=== PATIENT | female | born 1945 | race Caucasian/White ===

== ENCOUNTER 2020-08-02 08:55 | Outpatient (CLI) | payer MEDICARE, SELFPAY ==
--- NOTE | ~2020-08-02 | NM_ITS ---
EXAMINATION: NM nelsy stress w perfusion DATE: 08/02/2020 12:17 INDICATION: Chest pain. Ventricular premature depolarization. TECHNIQUE: Rest images were obtained following intravenous administration of 8.8 mCi Tc99m tetrofosmi n (Myoview). The exam was terminated by the insulation batting machine operator before stress imaging. Data was reconstructe d into short axis and horizontal and vertical long axis SPECT images. COMPARISON: Myocardial perfusion imaging 11/23/2012 FINDINGS: There is no perfusion defect. IMPRESSION: 1. Normal resting perfusion. Stress imaging was not performed. Reviewed, dictated and finalized at location B.
== END 2020-08-02 08:56 | disposition home or self-care (01) ==
PROVIDERS: PCP Family Medicine; Visit Provider Family Medicine
DX: I49.3 Ventricular premature depolarization (principal); R00.0 Tachycardia, unspecified; R07.9 Chest pain, unspecified
CPT/HCPCS: 78452; A9502

== ENCOUNTER 2020-08-02 10:50 | Inpatient (IN) | payer MEDICARE, SELFPAY ==
[2020-08-02] VITALS (38 sets, daily range): BP systolic 108–164; BP diastolic 50–98; PULSE 140–167; RESP 9–23; TEMP 36.1–36.3; O2SAT 97–100; BMI 22.1
--- NOTE | ~2020-08-02 | XR_ITS ---
XR chest 1V portable DATE: 08/02/2020 12:34 INDICATION: Shortness of breath. Atrial flutter. TECHNIQUE: Portable upright AP chest on 08/02/2020 at 1228 hours COMPARISON: 11/14/2011 PA and lateral chest FINDINGS: Bilateral hyperinflation. No pulmonary infiltrate or consolidation, pleural effusion or pul monary vascular congestion or pneumothorax is detected. Normal heart size. Aortic calcification. Diffuse osteopenia. IMPRESSION: No active cardiopulmonary disease Reviewed, dictated and finalized at location A.
--- NOTE | 2020-08-02 11:03 | ECG_ITS ---
Measurements Intervals [place] Rate: 155 P: MO: 0 QRS: 1 QRSD: 175 T: 270 QT: 293 QTc: 470 Interpretive Statements ATRIAL FLUTTER WITH RAPID VENTRICULAR RESPONSE ST-T WAVE ABNORMALITY IN ANT/INF LEADS- CONSIDER ISCHEMIA OR RATE RELATED BASELINE ARTIFACT- I, II, III, AVR, AVL ABNORMAL ECG Electronically Signed On 08-06-2020 11:14:54 CDT by Bob Suero D.O.
--- NOTE | 2020-08-02 11:16 | ED.ARRPALP ---
HPI - Arrhythmia/Palpitations General Chief Complaint: Arrhythmia/Palpitations Stated Complaint: heart beating fast Time Seen by Provider: 08/02/20 11:13 History of Present Illness HPI narrative: 75 yo female brought over from cardiology. She was scheduled to have a stress test this morning and she was found to be in atrial flutter. She has no history of this. She was unaware that her heart rate was fast. She reports that she has had GUNDERSON and early fatigue for months. She has had brief periods where she felt palpitations, but nothing sustained. No Chest pain, leg swelling, cough, fever. She is on Adderall. She takes alprazolam nightly. She is prescribed albuterol, but has not used it today. Related Data Home Medications Medication Instructions Recorded Confirmed ascorbate calcium (vitamin C) 500 500 mg PO BID 04/11/19 07/17/20 mg tablet denosumab 60 mg/mL subcutaneous 60 mg SUB-Q [id number] 04/11/19 07/17/20 syringe pyridoxine (vitamin B6) 100 mg 100 mg PO DAILY 04/11/19 07/17/20 tablet Allergies Allergy/AdvReac Type Severity Reaction Status Date / Time hydrochlorothiazide [Dyazide] Allergy Unknown Unknown Verified 08/02/20 11:06 modafinil Allergy Unknown did not Verified 08/02/20 11:06 work pregabalin [Lyrica] Allergy Unknown Anemia Verified 08/02/20 11:06 triamterene Allergy Unknown Unknown Verified 08/02/20 11:06 Review of Systems Review of Systems: All systems reviewed & are unremarkable except as noted in HPI and below Constitutional: Constitutional: Denies chills, Reports fatigue and Denies fever(s) Eyes: Eyes: Reports no additional eye complaints ENT: Denies dizziness Cardiovascular: Cardiovascular: Denies chest pain Respiratory: Respiratory: Reports dyspnea on exertion Gastrointestinal: Gastrointestinal: Denies abdominal pain and Denies nausea Genitourinary: Genitourinary: Reports no additional female genitourinary complaints Musculoskeletal: Musculoskeletal: Denies back pain Integumentary/Breasts: Skin/Breast: Reports system reviewed and no additional complaints, except as docu Neurologic: Denies dizziness, Denies headache(s), Denies focal weakness, Denies numbness and Reports weakness Psychiatric: Psychiatric: Reports no additional psychiatric complaints [facility] Past Medical History Medical History Fibromyalgia Hypertension Osteoporosis Surgical History Surgical History H/O breast biopsy H/O hand surgery trigger finger History of carpal tunnel surgery Hx of cholecystectomy S/P transposition of nerve Family History Family History (Reviewed 08/02/20 @ 14: by José Miguel Keith MD) Mother Asthma Family history of cardiovascular disease Family history of kidney disease Family history of malignant neoplasm of cervix, Onset Age: 68 Father Family history of peptic ulcer Family history of malignant neoplasm of stomach Family history of emphysema Sibling Family history of malignant neoplasm of brain, Onset Age: 55 Social History Social History Smoking status: Never smoker Alcohol intake: never Gender identity (if verbalized by the patient): Female Exam Const: General: healthy appearing, no acute distress and alert Orientation/consciousness: patient oriented x3 HENMT: Head: normal to inspection Neck: Neck: normal visual inspection and no lymphadenopathy Chest: Chest palpation & inspection: no tenderness Resp: Effort & Inspection: normal respiratory effort Auscultation: clear to auscultation bilaterally, no rales, no rhonchi and no wheezes Cardio: Jugular venous distension: no JVD Rate: tachycardic Rhythm: regular rhythm Heart sounds: no murmurs GI: Inspection: non-distended GI Palp: Yes Soft to palpation and No Tenderness to palpation present (GI) Skin: Ge
[2020-08-02] MEDS: dilTIAZem HCl INJ 25 MG/5 ML VIAL 10 MG IV PUSH (11:39)
[2020-08-02 12:15] LABS: Basophils Absolute Auto 0.1 K/mm3 (0.0-0.1); Basophils Percent Auto 0.9 % (0.2-1.2); Eosinophils Absolute Auto 0.1 K/mm3 (0-0.3); Eosinophils Percent Auto 0.8 % (0-4.4); Hematocrit 41.9 % (37.0-47.0); Hemoglobin 13.8 g/dL (12.0-15.0); Immature Granulocyte Absolute 0.02 K/mm3 (0.00-0.031); Immature Granulocyte Percent A 0.3 % (0-0.5); Lymphocytes Absolute Auto 1.74 K/mm3 (0.9-3.2); Lymphocytes Percent Auto 27.4 % (18.3-44.2); Mean Corpuscular HGB Conc 32.9 g/dl (32-36); Mean Corpuscular Hemoglobin 31.4 pg (26-34); Mean Corpuscular Volume 95.2 fl (80-100); Mean Platelet Volume 10.4 fl (7.4-10.4); Monocytes Absolute Auto 0.6 K/mm3 (0.1-0.6); Monocytes Percent Auto 8.7 % (2.6-8.5); Neutrophils Absolute Auto 3.9 K/mm3 (1.3-6.7); Neutrophils Percent Auto 61.9 % (45.5-73.1); Platelet Count Result 211 k/mm3 (150-375); Red Cell Distribution Width 12.6 % (11.5-14.5); White Blood Count 6.4 K/mm3 (4.5-10.0)
[2020-08-02 12:31] LABS: INR 0.9; Prothrombin Time 12.4 Seconds (11.1-14.7)
[2020-08-02 12:32] LABS: Partial Thromboplastin Time 26.9 SECONDS (22.3-36.8)
[2020-08-02 12:38] LABS: Alanine Aminotransferase 21 U/L (4-35); Albumin Level 4.2 g/dL (3.5-5.1); Alkaline Phosphatase 74 U/L (38-126); Anion Gap 4 mmol/L (8-16); Aspartate Amino Transferase 33 U/L (14-36); Bilirubin,Total 0.3 mg/dL (0.2-1.3); Blood Urea Nitrogen 15 mg/dL (7-17); Calcium 9.7 mg/dL (8.4-10.2); Carbon Dioxide 31 mmol/L (22-30); Chloride 106 mmol/L (98-107); Estimated CRCL calculation 40 ml/min; Estimated Glomerular Filt Rate > 60; Glucose 103 mg/dL (65-105); Potassium 4.2 mmol/L (3.4-5.0); Sodium 141 mmol/L (137-145)
[2020-08-02 13:08] LABS: NT Pro B Type Natriuretic Pept 2750 pg/mL (5-100); Troponin I 0.054 ng/mL (0.000-0.034)
[2020-08-02 13:14] LABS: Add Urine Microscopic? NO; Appearance Urine Clear (Clear); Bilirubin Urine Negative (Negative); Blood Urine Negative (Negative); Color Urine Straw (Yellow); Glucose Urine UA Negative (Negative); Ketones Urine Negative (Negative); Leukocyte Esterase Ur Negative LEU/UL (Negative); Nitrate Urine Negative (Negative); Protein Urine Negative (Negative); Specific Grav Ur 1.008 (1.001-1.035); Urobilinogen Urine Negative mg/dL (<2.0)
[2020-08-02] MEDS: ENOXAPARIN 60 MG/0.6 ML SYRINGE 55 MG SUB-Q (13:39)
--- NOTE | 2020-08-02 14:23 | PM.CNCAR ---
Assessment and Plan Assessment and plan (1) Atrial flutter: Code(s): I48.92 - Unspecified atrial flutter Status: Acute Assessment and Plan: Unknown duration. Was going to attempt a FAN guided cardioversion today however logistically could not be performed. Also given her elevated troponins, it is reasonable to continue to trend her enzymes. She will therefore be admitted. She has a chads Vasc score of 3. Anticoagulation is warranted. Will initiate enoxaparin 1 milligram/kilogram subcu q.12 hours initially. Will start her on a diltiazem drip at 5 mg per hour with the hopes of rate control or spontaneous conversion back to normal sinus rhythm. 2D echocardiogram Doppler be ordered. I have advised that she gradually reduce her caffeine intake as well as to talk to Dr. Fitch about eliminating Adderall from her prescription regimen. Will also check a TSH, free T4 level and magnesium level. (2) Hypertension: Code(s): I10 - Essential (primary) hypertension Status: Acute Assessment and Plan: At goal (3) PVC (premature ventricular contraction): Code(s): I49.3 - Ventricular premature depolarization Status: Acute Assessment and Plan: Likely benign. I think that her PVCs are what she is generally feeling with her palpitations/fluttering (4) Excessive caffeine intake: Code(s): Z78.9 - Other specified health status Status: Acute Assessment and Plan: She currently uses 3 [id number] caffeine pills daily (5) SOB (shortness of breath): Code(s): R06.02 - Shortness of breath Status: Acute Assessment and Plan: Outpatient Lexiscan perfusion study to be performed (6) Elevated troponin: Code(s): R77.8 - Other specified abnormalities of plasma proteins Status: Acute Assessment and Plan: Unlikely related to ACS. More likely secondary to her tachycardia. Continue to trend out serial cardiac enzymes History of Present Illness History of Present Illness Consult date/time: 08/02/20 14:23 Requesting physician: Jameson Sanchez MD Consult reason: Other (Atrial flutter) Reason For Visit: heart beating fast Narrative: Date of service 08/02/2020 History: Patient is a 75-year-old female who I saw earlier today in the stress lab. She does not have known coronary history or any cardiac history except for some palpitations. She is a patient Dr. Fitch'marta who is having a stress test performed because of some shortness of breath and as well as abnormal rhythm. The patient has a longstanding history of palpitations which she describes as a flip-flop or flutter. She has been having random episodes of shortness of breath also. Or shortness breath can occur with or without activity. About a month or so ago she had a prolonged episode of presyncope usually worsened while standing up. She did not actually pass out lower. She does not have any sustained palpitations. She has no chest pain, paroxysmal nocturnal dyspnea, orthopnea, edema. Before the Lexiscan stress test could be performed however, the patient was noted to be in atrial flutter with rapid ventricular response. She is completely asymptomatic and feels her normal self. However heart rate was 160 beats per minute. Stress test was aborted and she was sent to the ER for further evaluation. She was given diltiazem without any benefit. Her troponins are minimally elevated at 0.05 and she is being admitted further workup evaluation. She does use Adderall as well as excessive amounts of caffeine. She uses [id number] caffeine supplements 3 times daily because of headaches Review of Systems Review of Systems: All systems reviewed & are unremarkable except as noted in HPI and below Constitutional: Constitutional: Reports weakness Eyes: Eyes: Denies blurry vision ENT: Reports Normal hearing present Cardiovascular: Cardiovascular: Denies chest pain Respiratory: Respiratory: Re
--- NOTE | 2020-08-02 14:57 | ECG_ITS ---
Measurements Intervals [place] Rate: 160 P: ND: 0 QRS: -18 QRSD: 173 T: -89 QT: 284 QTc: 463 Interpretive Statements ATRIAL FLUTTER/TACHYCARDIA WITH RAPID VENTRICULAR RESPONSE RIGHT BUNDLE BRANCH BLOCK BASELINE ARTIFACT- I, II, III, AVR, AVF, V2-V6 ABNORMAL ECG Electronically Signed On 08-02-2020 17:33:30 CDT by Bob Suero D.O.
[2020-08-02 15:30] LABS: Magnesium 2.1 mg/dL (1.6-2.3)
[2020-08-02 15:47] LABS: T4 Thyroxine 6.03 ug/dL (5.53-11.0)
[2020-08-02 16:01] LABS: Thyroid Stimulating Hormone 0.868 uIU/mL (0.465-4.680)
--- NOTE | 2020-08-02 16:45 | PC.NURSE ---
ed physician aware heart rate remains a-fluter 150-160. will continue current rate diltiazem drip per ed physician
--- NOTE | 2020-08-02 17:05 | PC.NURSE ---
This patient, Mely Moody, was admitted to IMU Room 204-01. Patient/family oriented to hospital policies and general routines including ID bracelet, bed and alarms, visiting hours, pain management, procedures, bathroom and other care routines, personal items, smoking policy, room service/diet, and visiting hours. Information on how to activate the Rapid Response Team has been discussed. Patient/Family are encouraged to report perceived risks to care and to ask questions if they do not understand what they are told or what they should do.
--- NOTE | 2020-08-02 18:00 | PM.IMHP ---
H&P: HPI History of Present Illness Date/Time: 08/02/20 18:00 Chief Complaint: Rapid heartbeat. Narrative: This is a 75-year-old female who has been quite healthy other than asthma, hypertension, and remote history of peptic ulcers who presented to the emergency department earlier today for further evaluation of ?a rapid heartbeat.? For the past month or so she has been having periods of shortness of breath, mainly with exertion and she mentioned that to her doctor at a routine visit on July 17. He set her up for a stress test which was supposed to be done today however on presentation her heart rate was in the 150s and 160s and she was instead directed to the emergency department. She was found to be in atrial flutter with rapid ventricular response and she is being admitted in this setting. Interestingly she has no feelings of a racing heart at this time but does mention that maybe every couple of weeks she will have a fleeting moment when her heart flutters but it is never sustained. She does take Adderall daily for attention deficit disorder and also takes 2 tablets containing acetaminophen and caffeine, 3 times per day and she has done that for many years due to frequent headaches. She does not consume any other caffeine and denies alcohol use. She has not had any exertional chest pain recently and she also denies pleuritic pain. No syncope but she had a near syncopal episode about a month ago associated with a fluttering feeling in her chest. No nausea, vomiting, or sweats. Weight has remained stable. Review of Systems Review of Systems: Narrative: Twelve systems were reviewed with pertinent positives and negatives as per HPI. No fever, chills, or sweats. Weight has remained stable. No recent cold or flu symptoms. She states that her asthma is well controlled. No nighttime symptoms. No orthopnea, PND, or lower extremity edema. She denies nausea, vomiting, and diarrhea. No dysuria. Except as documented, all other systems were reviewed and are negative. [facility] Past Medical History Medical History (Updated 08/02/20 @ 21:25 by Lis Millan PA-C) Asthma Fibromyalgia Gastroesophageal reflux disease History of peptic ulcer Hypertension Osteoporosis Vitamin D deficiency Surgical History Surgical History (Updated 08/02/20 @ 21:21 by Lis Millan PA-C) History of breast biopsy History of carpal tunnel surgery History of cholecystectomy History of hand surgery Trigger finger release. History of lumbar laminectomy Status post transposition of nerve Right ulnar nerve transposition. Family History Family History Mother Asthma Family history of cardiovascular disease Family history of kidney disease Family history of malignant neoplasm of cervix, Onset Age: 68 Father Family history of peptic ulcer Family history of malignant neoplasm of stomach Family history of emphysema Sibling Family history of malignant neoplasm of brain, Onset Age: 55 Social History Social History (Updated 08/02/20 @ 21:22 by Lis Millan PA-C) Social History: Surrogate decision maker: Donavon Jean, nephew. Code status: Full code. Smoking status: Never smoker Alcohol intake: never Substance use: never Substance use type: does not use Additional living arrangements comments: The patient lives with her in [place]. 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 No children. 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 Gender identity (if verbalized by the patient): Female Spiritual care concerns: No Meds Home Medications and Allergies Home Medications Medication Instructions Recorded Confirmed Type ascorbate calcium (vitamin C) 500 500 mg PO BID 04/11/19 08/02/20 History mg tablet pyridoxine (vitamin B6) 100 mg 100 mg PO DAILY 03/23
[2020-08-02 18:17] LABS: Troponin I 0.048 ng/mL (0.000-0.034)
[2020-08-02 21:23] LABS: Troponin I 0.046 ng/mL (0.000-0.034)
[2020-08-02] MEDS: ALPRAZolam (*CRX) 0.5 MG TABLET PO (22:55)
[2020-08-02] MEDS: AMITRIPTYLINE HCL 25 MG TABLET 50 MG PO (22:55)
[2020-08-03] VITALS (21 sets, daily range): BP systolic 78–108; BP diastolic 44–67; PULSE 84–166; RESP 10–20; TEMP 36.4–37; O2SAT 93–100
--- NOTE | 2020-08-03 | ECHO_ITS ---
Patient Info Name: Mely Moody Age: 75 years : 1945 Gender: Female Ht: 63 in Wt: 121 lbs BSA: 1.56 m2 HR: 61 bpm BP: 99 / 67 mmHg Heart Rhythm: Sinus Rhythm Technical Quality: Good Exam Date: 08/03/2020 1:00 PM Exam Location: [facility] Card Pulmonary Patient Status: Inpatient Admit Date: 08/02/2020 Staff Ordering Physician: José Miguel Keith MD Teleradiologist: Melia Canela RDCS Attending Provider: Josafat Fernandez MD Referring Physician: Sagar RG; Exam Type: CA echo doppler color flow Study Info Complete two-dimensional, color flow and Doppler transthoracic echocardiogram is performed. Summary 1. Complete two-dimensional, color flow and Doppler transthoracic echocardiogram is performed. 2. Left ventricular chamber size, wall thickness, systolic function are normal with no regional wall motion abnormalities with an estimated ejection fraction of >70%. Grade 2 diastolic dysfunction is present. 3. Left atrial chamber dimension is mildly enlarged. 4. No pulmonary hypertension, estimated pulmonary arterial systolic pressure is 34 mmHg. 5. Atrial septal aneurysm present. (No shunt noted by FAN bubble study.). 6. No significant valve disease. 7. Normal sinus rhythm. Left Ventricle Left ventricular chamber dimension is normal. Left ventricular systolic function is normal, estimated at Empty. There is no increased left ventricular wall thickness. Left ventricular septal wall motion is normal. The left ventricular diastolic function is grade II diastolic dysfunction. Left ventricular chamber size, wall thickness, systolic function are normal with no regional wall motion abnormalities with an estimated ejection fraction of >70%. Grade 2 diastolic dysfunction is present. Right Ventricle Right ventricular chamber dimension is normal. Right ventricular systolic function is normal. Left Atria Left atrial chamber dimension is mildly enlarged. Right Atria Right atrial chamber dimension is normal. Aortic Valve The aortic valve is trileaflet. There is no aortic valve sclerosis. There is no aortic valve stenosis. There is no aortic valve regurgitation. Pulmonic Valve The pulmonic valve is normal. There is no pulmonic valve stenosis. There is no pulmonic regurgitation. Mitral Valve The mitral valve has calcified annulus. There is no mitral valve stenosis. There is no mitral valve regurgitation. Tricuspid Valve The tricuspid valve leaflets are normal. There is no significant tricuspid valve stenosis. There is trace tricuspid valve regurgitation. No pulmonary hypertension, estimated pulmonary arterial systolic pressure is 34 mmHg. Pericardium/Pleural The pericardium appears normal. There is no pericardial effusion. Inferior Vena Cava Normal inferior vena cava with >50% collapse upon inspiration consistent with Empty right atrial pressure, 10 mmHg. Aorta The aortic root size at the sinus of Valsalva is normal. The prox ascending aorta size is normal. Left Ventricular Outflow Tract Name Value Normal LVOT 2D LVOT Diameter 1.8 cm LVOT Doppler LVOT Peak Velocity
[2020-08-03] MEDS: ENOXAPARIN 60 MG/0.6 ML SYRINGE 55 MG SUB-Q (03:07)
--- NOTE | 2020-08-03 03:44 | PM.EVENT ---
Event Note Event Note Event Note: I was called to assess patient after she used the toilet and when getting up her knees about and patient loss consciousness briefly she was taken back to her bed at the time of my visit patient was awake alert oriented x3 on physical exam no deformities vitals stable heart rate is elevated. Decided to keep patient on bed rest only.
[2020-08-03] MEDS: METOPROLOL TARTRATE INJ 5 MG/5 ML VIAL IV PUSH ×2 (04:15→08:48)
[2020-08-03] MEDS: SODIUM CHLORIDE 0.9% IV 250 ML 999 ML IV CONT ×2 (05:18→05:40)
[2020-08-03] MEDS: SODIUM CHLORIDE 0.9% IV 1,000 ML 100 ML IV CONT (05:56)
[2020-08-03 06:09] LABS: Anion Gap 3 mmol/L (8-16); Blood Urea Nitrogen 14 mg/dL (7-17); Calcium 8.8 mg/dL (8.4-10.2); Carbon Dioxide 27 mmol/L (22-30); Chloride 107 mmol/L (98-107); Estimated CRCL calculation 45 ml/min; Estimated Glomerular Filt Rate > 60; Glucose 95 mg/dL (65-105); Potassium 3.7 mmol/L (3.4-5.0); Sodium 137 mmol/L (137-145)
[2020-08-03] MEDS: FLUTICASONE/SALMETEROL 115-21 MCG INHALER 1 PUFF 2 PUFF INHALATION (08:21)
--- NOTE | 2020-08-03 09:06 | PM.PNCARD ---
Progress Note: A&P Assessment and Plan (1) Atrial flutter with rapid ventricular response: Code(s): I48.92 - Unspecified atrial flutter Status: Acute Assessment and Plan: Patient not responding to medical therapy for atrial flutter RVR. Discussed proceeding with a FAN guided cardioversion, (FAN since were not sure how long the atrial flutter has been present), and the patient would like to proceed. Reviewed risks and benefits of conscious sedation and procedure. We may be somewhat limited with the sedation because of her low blood pressure. Hopefully if this is successful and uncomplicated the patient will go home later today. Will see if her insurance will cover a NOAC. She is aware that atrial flutter can recur. (2) Elevated troponin: Code(s): R77.8 - Other specified abnormalities of plasma proteins Status: Acute Assessment and Plan: Mildly elevated troponin and BMP secondary to a flutter, no acute coronary syndrome (3) Syncope: Code(s): R55 - Syncope and collapse Status: Acute Assessment and Plan: Brief syncope due to a flutter RVR, reduced cardic output and low blood presssure. (4) Excessive caffeine intake: Code(s): Z78.9 - Other specified health status Status: Acute Assessment and Plan: Advised to reduce caffeine, discuss changing Adderall. Subjective Date/time seen: 08/03/20 09:06 Interval history: Follow-up for atrial flutter, Date 08/03/2020: Patient remained in atrial flutter through the night heart rate 150-160, IV Cardizem did not seem to help much. Getting IV metoprolol which also has helped much. When she went to the restroom last night she had a brief syncopal event and was brought back to bed. Blood pressure has been often on low, 70s to 80s at times. No chest pain or shortness of breath. No esophageal problems Review of Systems Constitutional: Constitutional: Reports weakness ENT: Denies dysphagia Comments: No loose teeth, or esophageal problems Cardiovascular: Cardiovascular: Denies chest pain, Denies leg edema and Reports lightheadedness Respiratory: Respiratory: Denies dyspnea and Denies dyspnea on exertion Gastrointestinal: Gastrointestinal: Denies abdominal pain Genitourinary: Genitourinary: Denies hematuria Musculoskeletal: Musculoskeletal: Reports no additional musculoskeletal complaints Integumentary/Breasts: Skin/Breast: Denies rash Neurologic: Reports system reviewed and no additional complaints, except as documented Psychiatric: Psychiatric: Reports no additional psychiatric complaints Exam Const: General: comfortable and no acute distress HENMT: Mouth: Yes moist mucous membranes Eyes: EOM: EOMs intact bilaterally Neck: Neck: supple Resp: Effort & Inspection: normal respiratory effort Auscultation: clear to auscultation bilaterally Cardio: Rate: regular rate and tachycardic Rhythm: regular rhythm GI: GI Palp: Yes Soft to palpation and No Tenderness to palpation present (GI) Skin: General skin exam: no rashes or lesions noted Neuro: Cognition (Neuro): normal cognition Speech: normal speech Extrem: General: no pedal edema Psych: Mental Status: mental status grossly normal Objective Data Vital Signs Vital Signs: Vital Signs - 24 hr 08/02/20 10:58 08/02/20 10:59 08/02/20 11:00 Temperature Pulse Rate 158 H 158 H 155 H Respiratory Rate 13 19 Blood Pressure 164/92 H Pulse Oximetry 08/02/20 11:07 08/02/20 11:16 08/02/20 11:30 Temperature 97.2 F L Pulse Rate 154 H 154 H 154 H Respiratory Rate 22 H 12 14 Blood Pressure 164/92 H 146/98 H Pulse Oximetry 100 100 100 08/02/20 11:31 08/02/20 11:45 08/02/20 11:46 Temperature Pulse Rate 157 H 149 H 152 H Respiratory Rate 19 20 17 Blood Pressure 125/86 Pulse Oximetry 100 08/02
--- NOTE | 2020-08-03 09:16 | WPDMODSED ---
Moderate Sedation Note-Pt Data Patient Data Diagnosis: A flutter RVR, not responding to IV medical therapy Present Complaint: Atrial flutter RVR Procedure to be performed/Plan: FAN guided cardioversion Allergies Allergy/AdvReac Type Severity Reaction Status Date / Time hydrochlorothiazide [Dyazide] Allergy Unknown Unknown Verified 08/02/20 17:42 modafinil Allergy Unknown did not Verified 08/02/20 17:42 work pregabalin [Lyrica] Allergy Unknown Anemia Verified 08/02/20 17:42 triamterene Allergy Unknown Unknown Verified 08/02/20 17:42 Home Medications Medication Instructions Recorded Confirmed Type ascorbate calcium (vitamin C) 500 500 mg PO BID 04/11/19 08/02/20 History mg tablet pyridoxine (vitamin B6) 100 mg 100 mg PO DAILY 04/11/19 08/02/20 History tablet ergocalciferol (vitamin D2) 1,250 1,250 mcg PO MONTHLY #13 cap 02/28/20 08/02/20 Rx mcg (50,000 unit) capsule dextroamphetamine-amphetamine 20 20 mg PO DAILY #30 tablet 07/08/20 08/02/20 Rx mg tablet alprazolam 0.5 mg tablet 0.5 mg PO BID #180 tablet 07/17/20 08/02/20 Rx fluticasone 250 mcg-salmeterol 50 1 inh INHALATION BID #60 each 07/17/20 08/02/20 Rx mcg/dose blistr powdr for inhalation montelukast 10 mg tablet 10 mg PO DAILY #90 tablet 07/17/20 08/02/20 Rx amitriptyline 25 mg tablet 50 mg PO DAILY #180 tablet 07/18/20 08/02/20 Rx C,E,zinc,copper [id number] 1 cap PO DAILY 08/02/20 08/02/20 History [Ocuvite Adult 50 Plus] Centrum Silver Women 1 cap PO DAILY 08/02/20 08/02/20 History acetaminophen-caffeine [Excedrin 1 tablet PO Q6H PRN 08/02/20 08/02/20 History Tension Headache] albuterol sulfate [ProAir HFA] 2 puff INHALATION Q6H PRN 08/02/20 08/02/20 History docusate sodium [Colace] 50 mg PO BID 08/02/20 08/02/20 History guaifenesin [Mucinex] 600 mg PO Q12H PRN 08/02/20 08/02/20 History lysine [L-Lysine] 500 mg PO DAILY 08/02/20 08/02/20 History polyethylene glycol 3350 [Miralax] 17 g PO DAILY 08/02/20 08/02/20 History Current Medications: Active Medications Albuterol (Albuterol Sulfate (*Sp) Aerosol 1 Puff) 2 puff INHALATION Q6H PRN PRN Reason: Shortness Of Breath Alprazolam (Alprazolam (*Crx) 0.5 Mg Tablet) 0.5 mg PO Q12HR [facility] Last Admin: 08/03/20 09:01 Dose: Not Given Documented by: Amitriptyline HCl (Amitriptyline Hcl 25 Mg Tablet) 50 mg PO HS [facility] Last Admin: 08/02/20 22:55 Dose: 50 mg Documented by: Ascorbic Acid (Ascorbic Acid 500 Mg Tablet) 500 mg PO BID [facility] Last Admin: 08/03/20 09:02 Dose: Not Given Documented by: Docusate Sodium (Docusate Sodium 100 Mg Capsule) 100 mg PO DAILY [facility] Last Admin: 08/03/20 09:02 Dose: Not Given Documented by: Enoxaparin Sodium (Enoxaparin 60 Mg/0.6 Ml Syringe) 55 mg SUB-Q Q12H [facility] Last Admin: 08/03/20 03:07 Dose: 55 mg Documented by: Fentanyl Citrate (Fentanyl Citrate Inj (*Crx) 100 Mcg/2 Ml Vial) 100 mcg IV PUSH ONCE PRN PRN Reason: Cardioversion/FAN Sodium Chloride (Normal Saline Iv) 1,000 mls @ 100 mls/hr IV CONT .Q10H [facility] Last Admin: 08/03/20 05:56 Dose: 100 mls/hr Documented by: Sodium Chloride (Normal Saline Iv) 1,000 mls @ 30 mls/hr IV CONT .Q24H [facility] Midazolam HCl (Midazolam Hcl (*Crx) 2 Mg/2 Ml Vial) 2 mg IV PUSH Q5M PRN PRN Reason: Cardioversion/FAN Montelukast Sodium (Montelukast Sodium 10 Mg Tablet) 10 mg PO DAILY [facility] Last Admin: 08/03/20 09:02 Dose: Not Given Documented by: Multivitamins/Minerals (Opti-Gen Tab) 1 tablet PO DAILY [facility] Stop: 09/02/20 09:01 Last Admin: 08/03/20 09:03 Dose: Not Given Documented by: Multivitamins/Minerals (Multivitamins /C Lutein (Centrum Silver) Tablet *Bkc) 1 tab PO DAILY [facility] Stop: 09/02/20 09:01 Last Admin: 08/03/20 09:03 Dose: Not Given Documented by: Polyethylene Glycol (Polyethylene Glycol 3350 17 Gm Powd.Pack) 17 gm PO DAILY [facility] Last Admin: 08/03/20 09:03 Dose: Not Given Documented by: Pyridoxine HCl (Pyridoxine Hcl 50 Mg Tablet) 100 mg PO DAILY [facility] Stop: 09/02/20 09:01 Last Admin:
--- NOTE | 2020-08-03 09:21 | PM.IMPN ---
Progress Note: A&P Assessment and Plan (1) Atrial flutter with rapid ventricular response: Code(s): I48.92 - Unspecified atrial flutter Status: Acute Assessment and Plan: D/w cardiology Cardioversion planned today as meds not controlling rate (2) Syncope: Qualifiers: Syncope type: unspecified Qualified Code(s): R55 - Syncope and collapse Code(s): R55 - Syncope and collapse Status: Acute Assessment and Plan: Likely due to #1 (3) Elevated troponin: Code(s): R77.8 - Other specified abnormalities of plasma proteins Status: Acute Assessment and Plan: Likely due to HR (4) Excessive caffeine intake: Code(s): Z78.9 - Other specified health status Status: Acute Assessment and Plan: She will decrease Consider d/c stimulant meds as outpt (5) Hypertension: Qualifiers: Hypertension type: unspecified Qualified Code(s): I10 - Essential (primary) hypertension Code(s): I10 - Essential (primary) hypertension Status: Acute Assessment and Plan: Stable Monitor Subjective Date/time seen: 08/03/20 09:21 Interval history: 08/03: Feels fine. No cp or sob or palpitations. Review of Systems Review of Systems: All systems reviewed & are unremarkable except as noted in HPI and below Exam Narrative: Exam Narrative: HEENT: EOMI, PERRL, sclerae nonicteric, pharyngeal mucosa pink and intact NECK: No JVD, adenopathy, or thyromegaly CHEST: Clear to auscultation. Normal effort. HEART: NL S1/S2, regular, TACHYCARDIC, no murmur ABDOMEN: BS+, soft, nontender, no mass, no bruits EXTREMITIES: No cyanosis, edema, or clubbing NEUROLOGIC: CN intact and symmetric to inspection. MUSCULOSKELETAL: Tone and strength symmetric. PSYCH: Alert. Oriented to person, place, and time. Objective Data Vital Signs Vital Signs: Vital Signs - 24 hr 08/02/20 10:58 08/02/20 10:59 08/02/20 11:00 Temperature Pulse Rate 158 H 158 H 155 H Respiratory Rate 13 19 Blood Pressure 164/92 H Pulse Oximetry 08/02/20 11:07 08/02/20 11:16 08/02/20 11:30 Temperature 97.2 F L Pulse Rate 154 H 154 H 154 H Respiratory Rate 22 H 12 14 Blood Pressure 164/92 H 146/98 H Pulse Oximetry 100 100 100 08/02/20 11:31 08/02/20 11:45 08/02/20 11:46 Temperature Pulse Rate 157 H 149 H 152 H Respiratory Rate 19 20 17 Blood Pressure 125/86 Pulse Oximetry 100 08/02/20 12:01 08/02/20 12:19 08/02/20 12:36 Temperature Pulse Rate 155 H 157 H 159 H Respiratory Rate 13 12 Blood Pressure Pulse Oximetry 97 98 100 08/02/20 12:45 08/02/20 12:46 08/02/20 13:00 Temperature Pulse Rate 159 H 160 H 160 H Respiratory Rate 13 12 9 L Blood Pressure 134/81 113/75 Pulse Oximetry 100 100 08/02/20 13:01 08/02/20 13:30 08/02/20 13:32 Temperature Pulse Rate 159 H 160 H 158 H Respiratory Rate 15 14 Blood Pressure 119/78 Pulse Oximetry 100 100 100 08/02/20 13:45 08/02/20 13:47 08/02/20 14:00 Temperature Pulse Rate 155 H 159 H 159 H Respiratory Rate 16 16 22 H Blood Pressure 119/79 Pulse Oximetry 100 100 100 08/02/20 14:01 08/02/20 14:07 08/02/20 14:15 Temperature Pulse Rate 160 H 158 H 159 H Respiratory Rate 23 H 9 L 13 Blood Pressure 116/91 H 121/85 Pulse Oximetry 99 99 99 08/02/20 14:16 08/02/20 15:02 08/02/20 15:40 Temperature Pulse Rate 160 H 160 H 160 H Respiratory Rate 11 L Blood Pressure 124/93 H 134/82 Pulse Oximetry 99 08/02/20 16:10 08/02/20 16:51 08/02/20 17:11 Temperature 97.1 F L Pulse Rate 159 H 160 H 167 H Respiratory Rate 12 14 18 Blood Pressure 113/61 122/50 L 108/73 Pulse Oximetry 100 98 100 08/02/20 17:16 08/02/20 17:17 08/02/20 17:22 Temperature 97.1 F L Pulse Rate 161 H 158 H 158 H Respiratory Rate 18 Blood Pressure 108/73 Pulse Oximetry 100 08/02/20 18:00 08/02/20 19:40 08/02/20 20:00 Temperature 97.4 F L Pulse Rate
[2020-08-03] MEDS: LIDOCAINE HCL 2% VISC SOLN 15 ML UDC 20 ML PO (10:55)
[2020-08-03] MEDS: BENZOCAINE (*SP) 60 ML SPRAY CAN (HURRICAINE) 1 SPRAY MUCOUS MEM (10:56)
[2020-08-03] MEDS: fentaNYL CITRATE INJ (*CRX) 100 MCG/2 ML VIAL IV PUSH (11:13)
[2020-08-03] MEDS: MIDAZOLAM HCL (*CRX) 2 MG/2 ML VIAL IV PUSH (11:14)
--- NOTE | 2020-08-03 11:15 | PC.NURSE ---
FAN and Cardioversion done at bedside in ICU [address] M[address]. Procedure started at 1053. 50 mcg fentanyl and 1 mg versed given at this time for FAN. 1104 25 mcg fentanyl and 1 mg versed given for cardioversion. Patient shocked once with return to NSR.
--- NOTE | 2020-08-03 11:44 | P.PCNTEECA_ITS ---
FAN with Cardioversion Date of procedure: 08/03/20 Procedure Type: FAN guided cardioversion Diagnosis: Atrial flutter not responding to IV therapy Indications: Atrial flutter not responding to IV therapy Description of Procedure: Conscious sedation: Assessment: The patient has no history of anesthesia problems. The patient's oropharynx is clear. The patient was deemed to be a good candidate for conscious sedation. The patient had continuous hemodynamic and oximetric monitoring during the procedure. Start time: 1053 Completion time: 1111 Total conscious sedation time: 18 minutes Medications Used: Versed 2 mg, fentanyl 75 mcg IV push Trained observer: Shamar Wren RN Outcome: The patient tolerated the procedure well with no complications. Procedure: After informed consent the patient had Hurricaine spray the hypopharynx. The patient had conscious sedation as described above. The transesophageal echo probe was introduced in the esophagus without difficulty. Imaging was obtained in multiplane views. Agitated saline was injected to evaluate for intracardiac shunting. The patient tolerated the procedure well with no complications. Findings: The left atrium was enlarged. There is no thrombus present in the left atrium or left atrial appendage. The atrial septum appeared aneurysmal. Mitral valve appeared thickened with no stenosis or prolapse. The left ventricle had had normal size with possible LVH, and normal tohyperdynamic contractility of all segments. Function was difficult to assess because of the patient's tachycardia. The ejection fraction is estimated to be: 60-70% The aortic root and valve were normal. The ascending aorta, aortic arch and descending thoracic aorta were normal. The right atrium is also mildly enlar ged, but the tricuspid valve, right ventricle, pulmonic valve and pulmonic artery were all normal. There is no pericardial effusion. When agitated saline was injected intravenously there was no evidence of intracardiac shunting. Colorflow Doppler Findings: No significant aortic, mitral, tricuspid or pulmonic valve disease Cardioversion: After informed consent and the above conscious sedation, the patient underwent elective electrical synchronized cardioversion with 70 joules of biphasic energy and converted to normal sinus rhythm. There were no complications. Findings: FAN report: Normal to hyperdynamic left ventricular function Possible LVH Biatrial enlargement No significant valve disease No thrombus in the left atrial appendage . Conclusion: Successful cardioversion from atrial flutter to normal sinus rhythm. Plan: Likely discharge this afternoon taking Xarelto (approximately 38 dollars a month) and metoprolol succinate 25 mg daily. Reduce caffeine intake. Consider transitioning off Adderall. Office follow-up.
--- NOTE | 2020-08-03 16:44 | PM.DS ---
DS: Admitting Diagnosis Admitting Diagnosis Admitting Diagnosis: atrial flutter with rapid ventricular rate, syncope DS: Discharge Diagnosis Discharge Diagnosis (1) Atrial flutter with rapid ventricular response: Code(s): I48.92 - Unspecified atrial flutter Status: Acute Assessment and Plan: FAN cardioversion performed 08/03 and sinus rhythm maintained (2) Syncope: Qualifiers: Syncope type: unspecified Qualified Code(s): R55 - Syncope and collapse Code(s): R55 - Syncope and collapse Status: Acute Assessment and Plan: Likely due to #1 (3) Elevated troponin: Code(s): R77.8 - Other specified abnormalities of plasma proteins Status: Acute Assessment and Plan: Likely due to HR (4) Excessive caffeine intake: Code(s): Z78.9 - Other specified health status Status: Acute Assessment and Plan: She will decrease Consider d/c stimulant meds as outpt (5) Hypertension: Qualifiers: Hypertension type: unspecified Qualified Code(s): I10 - Essential (primary) hypertension Code(s): I10 - Essential (primary) hypertension Status: Acute Assessment and Plan: Stable DS: Summary Hospital Course Reason for hospitalization: syncope, atrial flutter with rapid ventricular rate Hospital Course: Admitted with presyncopal episode. Found to have atrial flutter with rapid ventricular rate. Did not respond to diltiazem IV nor to metoprolol IV and p.o.. Was anticoagulated with Xarelto. Tolerated well without bleeding. On day of discharge underwent a transesophageal echocardiographic cardioversion uneventfully. Sinus rhythm was maintained throughout the day. LABS, including TSH, CBC, CMP, U/A were unremarkable. TnI was mildly elevated with a flat trend. CXR was unremarkable. EKG with atrial flutter and RVR. Status at Discharge Functional status at discharge: independent ambulation Overall status at discharge: patient is back to baseline Time Spent with Patient Time attestation: Total time spent providing and/or coordinating discharge services: Time spent: Greater than 30 minutes Exam Narrative: Exam Narrative: HEENT: EOMI, PERRL, sclerae nonicteric, pharyngeal mucosa pink and intact NECK: No JVD, adenopathy, or thyromegaly CHEST: Clear to auscultation. Normal effort. HEART: NL S1/S2, regular, no murmur ABDOMEN: BS+, soft, nontender, no mass, no bruits EXTREMITIES: No cyanosis, edema, or clubbing NEUROLOGIC: CN intact and symmetric to inspection. MUSCULOSKELETAL: Tone and strength symmetric. PSYCH: Alert. Oriented to person, place, and time. DS: Data Data Completed and Pending Labs on day of discharge: Labs from last 24 hours 08/03/20 08/02/20 08/02/20 04:20 20:34 17:26 Sodium 137 Potassium 3.7 Chloride 107 Carbon Dioxide 27 Anion Gap 3 L BUN 14 Creatinine 0.80 Estim Creat Clear Calc 45 Estimated GFR > 60 Glucose 95 Calcium 8.8 Magnesium 2.0 Troponin I 0.046 H* 0.048 H* Discharge Plan Discharge Consulting providers: José Miguel Keith Discharging Clinician: Pedro Lopes Patient Disposition: Home, Self-Care Activity: as tolerated Diet: heart healthy and diabetic Discharge Instructions: Dr. Keith's office should be calling you for a follow-up visit. Please call us if you have questions or problems. [facility]: [phone]. Address: [address] [place] [address] [address], [address] [address]. Our office is on the ground floor next to the gift shop of the doctor's office building. Enter through the main entrance for COVID screening. Reduce caffeine use as a stimulant can predispose to atrial flutter. Talk to Dr. Fitch about changing the Adderall as that also can predispose to atrial arrhythmias. Your new blood thinner, Xarelto, as best taken with a large meal such as at supper time. The other new medicine, metoprolol,
== END 2020-08-03 18:00 | disposition home or self-care (01) | DRG 310 ==
LOC: ANHED 14:42 → ANHIMU 08-03 16:54 → ANHICU 08-06 16:48 → ANHIMU 08-06 16:48
PROVIDERS: Internal Medicine Cardiovascular Disease; Physician Assistant; Admitting Provider Internal Medicine; Emergency Provider Emergency Medicine; PCP Family Medicine; Visit Provider Internal Medicine
DX: I48.92 Unspecified atrial flutter (principal); R55 Syncope and collapse; R77.8 Other specified abnormalities of plasma proteins; I49.3 Ventricular premature depolarization; I10 Essential (primary) hypertension; J45.909 Unspecified asthma, uncomplicated; K21.9 Gastro-esophageal reflux disease without esophagitis; M81.0 Age-related osteoporosis without current pathological fracture; E55.9 Vitamin D deficiency, unspecified; M79.7 Fibromyalgia; Z78.9 Other specified health status; Z79.899 Other long term (current) drug therapy
CPT/HCPCS: 36415; 71045; 78452; 80048; 80053; 81003; 83735; 83880; 84436; 84443; 84484; 85025; 85610; 85730; 93005; 93306; 93312; 93320; 93325; 94640; 96372; 96374; 99285; A9270; A9502; J1650; J2250; J3010; J7030; J7040; J7050

== ENCOUNTER 2021-12-01 03:07 | Day surgery (SDC) | payer MEDICARE, SELFPAY ==
[2021-11-20 14:47] VITALS: BMI 24.0
--- NOTE | 2021-11-20 15:42 | PC.NURSE ---
INSTRUCTIONS GIVEN TO PATIENT WHEN TO HOLD XARELTO WITH LAST DOSE ON 11/28/2021-WILL HOLD IRON FOR 4-5 DAYS BEFORE PROCEDURE
--- NOTE | 2021-12-01 07:55 | WPDANESEPPF ---
Anes - Initial Pre Proc Eval Procedure: Operation Date: 12/01/21 10:30 Proposed Procedures p Screening Colonoscopy - Fredo Barnett MD Date/Time: 12/01/21 07:55 Surgeon: Fredo Barnett MD Pre Op Diagnosis: neoplasm screening Patient Data Age: 76 Gender: F Height: 1.6 m Weight: 61.5 kg Allergies Allergy/AdvReac Type Severity Reaction Status Date / Time hydrochlorothiazide [Dyazide] Allergy Unknown Unknown Verified 12/01/21 09:34 modafinil Allergy Unknown did not Verified 12/01/21 09:34 work pregabalin [Lyrica] Allergy Unknown Anemia Verified 12/01/21 09:34 triamterene Allergy Unknown Unknown Verified 12/01/21 09:34 Home Medications Medication Instructions Recorded Confirmed Type pyridoxine (vitamin B6) 100 mg 100 mg PO DAILY 04/11/19 11/27/21 History tablet Centrum Silver Women 1 cap PO DAILY 08/02/20 11/27/21 History albuterol sulfate 90 mcg/actuation 2 puff inhalation Q6H PRN 08/02/20 11/27/21 History aerosol inhaler (ProAir HFA) Shortness Of Breath guaifenesin 600 mg tablet, 600 mg PO Q12H PRN Cough 08/02/20 11/27/21 History extended release 12 hr (Mucinex) lysine 500 mg tablet (L-Lysine) 500 mg PO DAILY 08/02/20 11/27/21 History polyethylene glycol 3350 17 gram 17 g PO DAILY 08/02/20 11/27/21 History oral powder packet (Miralax) vit C,E,zinc,copper-iffzw8b 250 1 cap PO DAILY 08/02/20 11/27/21 History mg-lutein 5 mg-zeaxanthin 1 mg capsule (Ocuvite Adult 50 Plus) rivaroxaban 20 mg tablet (Xarelto) 20 mg PO DAILY@1700 #30 tabs 08/03/20 11/27/21 Rx ergocalciferol (vitamin D2) 1,250 1,250 mcg PO MONTHLY #13 caps 08/27/20 11/27/21 Rx mcg (50,000 unit) capsule fluticasone 250 mcg-salmeterol 50 See Rx Instructions .Route 09/09/21 11/27/21 Rx mcg/dose blistr powdr for .COMPLEX #60 ea inhalation (Advair Diskus) ferrous fumarate 324 mg (106 mg 324 mg PO DAILY #30 tabs 09/23/21 11/27/21 Rx iron) tablet amitriptyline 25 mg tablet See Rx Instructions .Route 10/22/21 11/27/21 Rx .COMPLEX #180 tabs sodium,potassium,mag sulfates 17.5 See Rx Instructions PO .COMPLEX 10/27/21 11/27/21 Rx gram-3.13 gram-1.6 gram oral soln #354 mL (Suprep Bowel Prep Kit) alprazolam 0.5 mg tablet 0.5 mg PO BID #90 tabs 11/13/21 11/27/21 Rx calcium carbonate 500 mg calcium 500 mg PO BID 11/20/21 11/27/21 History (1,250 mg) tablet docusate sodium 100 mg capsule 200 mg PO HS 11/20/21 11/27/21 History (Colace) fluticasone propionate 50 1 spray intranasal DAILY PRN Runny 11/20/21 11/27/21 History mcg/actuation nasal Nose spray,suspension metoprolol succinate 50 mg 50 mg PO DAILY 11/20/21 12/01/21 History tablet,extended release 24 hr montelukast 10 mg tablet 10 mg PO DAILY 11/20/21 11/27/21 History olopatadine 0.2 % eye drops 1 drp EACH EYE DAILY PRN ITCHY EYES 11/20/21 11/27/21 History vitamin E 400 unit tablet 400 unit PO DAILY 11/20/21 11/27/21 History Patient hx anesthesia problems: none Family hx anesthesia problems: none Results Review: All pre-operative results and documents have been reviewed as part of the pre-operative evaluation. [facility] Past Medical History Medical History (Updated 12/01/21 @ 09:57 by Sinan Deng DO) Asthma Atrial flutter Fibromyalgia Gastroesophageal reflux disease History of peptic ulcer Hypertension Osteoporosis Vitamin D deficiency Surgical History Surgical History History of breast biopsy History of carpal tunnel surgery History of cholecystectomy History of hand surgery Trigger finger release. History of lumbar laminectomy Status post transposition of nerve Right ulnar nerve transposition. Family History Family History Mother Asthma Family history of cardiovascular disease Family history of kidney disease Family history of malignant neoplasm of cervix, Onset Age: 68 Father Family hi
[2021-12-01 09:36] VITALS: BP 135/77; PULSE 113; RESP 18; TEMP 36.2; O2SAT 100
--- NOTE | 2021-12-01 09:45 | PM.IMHP ---
H&P: HPI History of Present Illness Date/Time: 12/01/21 09:45 Chief Complaint: Neoplasia screening. Narrative: This is a 76-year-old white female patient presents for screening colonoscopy. Patient's current weight appetite and bowel movements are normal. She denies abdominal pain. She has had no bleeding. Family history is noncontributory. Patient presents for neoplasia screening. Review of Systems Review of Systems: Review of systems noncontributory. [facility] Past Medical History Medical History Asthma Fibromyalgia Gastroesophageal reflux disease History of peptic ulcer Hypertension Osteoporosis Vitamin D deficiency Surgical History Surgical History History of breast biopsy History of carpal tunnel surgery History of cholecystectomy History of hand surgery Trigger finger release. History of lumbar laminectomy Status post transposition of nerve Right ulnar nerve transposition. Family History Family History Mother Asthma Family history of cardiovascular disease Family history of kidney disease Family history of malignant neoplasm of cervix, Onset Age: 68 Father Family history of peptic ulcer Family history of malignant neoplasm of stomach Family history of emphysema Sibling Family history of malignant neoplasm of brain, Onset Age: 55 Social History Social History (Updated 09/24/21 @ 15:03 by KATIE Fam) Social History: Surrogate decision maker: Donavon Kurtzjoann, nephew. Code status: Full code. Smoking status: Never smoker Alcohol intake: never Substance use: never Substance use type: does not use Living arrangements: with family Additional living arrangements comments: The patient lives with her in [place]. He suffers from dementia and she is his primary sql developer. No children. 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 Gender identity (if verbalized by the patient): Female Spiritual care concerns: No Meds Home Medications and Allergies Home Medications Medication Instructions Recorded Confirmed Type pyridoxine (vitamin B6) 100 mg 100 mg PO DAILY 04/11/19 11/27/21 History tablet Centrum Silver Women 1 cap PO DAILY 08/02/20 11/27/21 History albuterol sulfate 90 mcg/actuation 2 puff inhalation Q6H PRN 08/02/20 11/27/21 History aerosol inhaler (ProAir HFA) Shortness Of Breath guaifenesin 600 mg tablet, 600 mg PO Q12H PRN Cough 08/02/20 11/27/21 History extended release 12 hr (Mucinex) lysine 500 mg tablet (L-Lysine) 500 mg PO DAILY 08/02/20 11/27/21 History polyethylene glycol 3350 17 gram 17 g PO DAILY 08/02/20 11/27/21 History oral powder packet (Miralax) vit C,E,zinc,copper-rddeo1x 250 1 cap PO DAILY 08/02/20 11/27/21 History mg-lutein 5 mg-zeaxanthin 1 mg capsule (Ocuvite Adult 50 Plus) rivaroxaban 20 mg tablet (Xarelto) 20 mg PO DAILY@1700 #30 tabs 08/03/20 11/27/21 Rx ergocalciferol (vitamin D2) 1,250 1,250 mcg PO MONTHLY #13 caps 08/27/20 11/27/21 Rx mcg (50,000 unit) capsule fluticasone 250 mcg-salmeterol 50 See Rx Instructions .Route 09/09/21 11/27/21 Rx mcg/dose blistr powdr for .COMPLEX #60 ea inhalation (Advair Diskus) ferrous fumarate 324 mg (106 mg 324 mg PO DAILY #30 tabs 09/23/21 11/27/21 Rx iron) tablet amitriptyline 25 mg tablet See Rx Instructions .Route 10/22/21 11/27/21 Rx .COMPLEX #180 tabs sodium,potassium,mag sulfates 17.5 See Rx Instructions PO .COMPLEX 10/27/21 11/27/21 Rx gram-3.13 gram-1.6 gram oral soln #354 mL (Suprep Bowel Prep Kit) alprazolam 0.5 mg tablet 0.5 mg PO BID #90 tabs 11/13/21 11/27/21 Rx calcium carbonate 500 mg calcium 500 mg PO BID 11/20/21 11/27/21 History (1,250 mg) tablet docusate sodium 100 mg capsule 200 mg PO HS 0
[2021-12-01] MEDS: LACTATED RINGERS 1,000 ML 150 ML IV CONT (09:47)
[2021-12-01 10:58] VITALS: BP 117/59; PULSE 94; RESP 27; O2SAT 100
[2021-12-01 11:08] VITALS: BP 135/68; PULSE 77; RESP 23; O2SAT 100
[2021-12-01 11:18] VITALS: BP 139/77; PULSE 85; RESP 19; O2SAT 99
== END 2021-12-01 11:32 | disposition home or self-care (01) ==
PROVIDERS: PCP Family Medicine; Visit Provider Internal Medicine Gastroenterology
PROC: 0DJD8ZZ Inspection of Lower Intestinal Tract, Via Natural or Artificial Opening Endoscopic (ICD-10-PCS; CPT 45378; principal; 2021-12-01 10:30)
DX: Z12.11 Encounter for screening for malignant neoplasm of colon (principal); Z98.0 Intestinal bypass and anastomosis status; K64.8 Other hemorrhoids; J45.909 Unspecified asthma, uncomplicated; M79.7 Fibromyalgia; K21.9 Gastro-esophageal reflux disease without esophagitis; I10 Essential (primary) hypertension; M81.0 Age-related osteoporosis without current pathological fracture; E55.9 Vitamin D deficiency, unspecified; Z87.11 Personal history of peptic ulcer disease; Z79.51 Long term (current) use of inhaled steroids; I48.92 Unspecified atrial flutter
CPT/HCPCS: G0121; J2704; J7120

== ENCOUNTER 2022-04-15 12:02 | Day surgery (SDC) | payer MEDICARE, SELFPAY ==
[2022-04-15] VITALS (13 sets, daily range): BP systolic 95–129; BP diastolic 60–101; PULSE 77–140; RESP 10–19; TEMP 36.8; O2SAT 96–100; BMI 24.5
[2022-04-15 12:39] LABS: Anion Gap 5 mmol/L (8-16); Blood Urea Nitrogen 11 mg/dL (7-17); Calcium 9.3 mg/dL (8.4-10.2); Carbon Dioxide 27 mmol/L (22-30); Chloride 106 mmol/L (98-107); Estimated CRCL calculation 40 ml/min; Estimated Glomerular Filt Rate > 60; Glucose 102 mg/dL (65-110); Magnesium 2.2 mg/dL (1.6-2.3); Potassium 4.1 mmol/L (3.4-5.0); Sodium 138 mmol/L (137-145)
--- NOTE | 2022-04-15 13:30 | ECG_ITS ---
Measurements Intervals Holcomb Rate: 78 P: 80 ND: 161 QRS: 33 QRSD: 99 T: 41 QT: 373 QTc: 425 Interpretive Statements SINUS RHYTHM INCOMPLETE RIGHT BUNDLE BRANCH BLOCK BORDERLINE ECG COMPARED TO ECG 08/02/2020 15:12:17 SINUS RHYTHM NOW PRESENT Electronically Signed On 04-15-2022 15:00:05 MANAGER STONE by Bob Suero D.O.
--- NOTE | 2022-04-15 14:03 | WPDHPUPDATE1 ---
History and Physical Update Update Date/Time: 04/15/22 14:03 History and Physical has been reviewed, including an updated exam of the patient. There are NO changes in the patient's condition. Risks, benefits, and alternatives have been discussed and questions answered. Patient agrees to proceed with procedure.
--- NOTE | 2022-04-15 14:04 | WPDMODSED ---
Moderate Sedation Note-Pt Data Patient Data Diagnosis: Atrial flutter Present Complaint: Atrial flutter Procedure to be performed/Plan: Synchronized electrical cardioversion Allergies Allergy/AdvReac Type Severity Reaction Status Date / Time aspirin AdvReac Intermediate Other Verified 04/15/22 12:05 codeine AdvReac Intermediate Other Verified 04/15/22 12:04 hydrochlorothiazide [Dyazide] AdvReac Unknown Unknown Verified 04/15/22 12:02 pregabalin [Lyrica] AdvReac Unknown Anemia Verified 04/15/22 12:02 triamterene AdvReac Unknown Unknown Verified 04/15/22 12:02 Home Medications Medication Instructions Recorded Confirmed Type pyridoxine (vitamin B6) 100 mg 100 mg PO DAILY 04/11/19 04/15/22 History tablet Centrum Silver Women 1 cap PO DAILY 08/02/20 04/15/22 History albuterol sulfate 90 mcg/actuation 2 puff inhalation Q6H PRN 08/02/20 04/15/22 History aerosol inhaler (ProAir HFA) Shortness Of Breath guaifenesin 600 mg tablet, 600 mg PO Q12H PRN Cough 08/02/20 04/15/22 History extended release 12 hr (Mucinex) lysine 500 mg tablet (L-Lysine) 500 mg PO DAILY 08/02/20 04/15/22 History polyethylene glycol 3350 17 gram 17 g PO DAILY 08/02/20 04/15/22 History oral powder packet (Miralax) vit C,E,zinc,copper-ijmhj1c 250 1 cap PO DAILY 08/02/20 04/15/22 History mg-lutein 5 mg-zeaxanthin 1 mg capsule (Ocuvite Adult 50 Plus) rivaroxaban 20 mg tablet (Xarelto) 20 mg PO DAILY@1700 #30 tabs 08/03/20 04/15/22 Rx calcium carbonate 500 mg calcium 600 mg PO BID 11/20/21 04/15/22 History (1,250 mg) tablet docusate sodium 100 mg capsule 200 mg PO HS 11/20/21 04/15/22 History (Colace) fluticasone propionate 50 1 spray intranasal DAILY PRN Runny 11/20/21 04/15/22 History mcg/actuation nasal Nose spray,suspension metoprolol succinate 50 mg 50 mg PO DAILY 11/20/21 04/15/22 History tablet,extended release 24 hr olopatadine 0.2 % eye drops 1 drp EACH EYE DAILY PRN ITCHY EYES 11/20/21 04/15/22 History vitamin E 400 unit tablet 400 unit PO EVERY OTHER DAY 11/20/21 04/15/22 History montelukast 10 mg tablet 10 mg PO DAILY #90 tabs 12/02/21 04/15/22 Rx ferrous fumarate 324 mg (106 mg 324 mg PO DAILY #90 tabs 01/20/22 04/15/22 Rx iron) tablet omeprazole 40 mg capsule,delayed 40 mg PO DAILY #90 caps 04/02/22 04/15/22 Rx release alprazolam 0.5 mg tablet 1 mg PO HS 04/15/22 04/15/22 History amitriptyline 25 mg tablet 50 mg PO HS 04/15/22 04/15/22 History ergocalciferol (vitamin D2) 1,250 50,000 unit PO MONTHLY 04/15/22 04/15/22 History mcg (50,000 unit) capsule fluticasone 250 mcg-salmeterol 50 1 inh inhalation BID 04/15/22 04/15/22 History mcg/dose blistr powdr for inhalation (Advair Diskus) Current Medications: Active Medications Sodium Chloride (Normal Saline Iv) 500 mls @ 30 mls/hr IV CONT .[id number] [facility] Sedation/Anesthesia: No previous sedation/anesthesia problems (including family history). [facility] Past Medical History Medical History Anemia Atrial flutter with rapid ventricular response Elevated troponin ETD (eustachian tube dysfunction) History of peptic ulcer Syncope Vitamin D deficiency Surgical History Surgical History History of breast biopsy History of carpal tunnel surgery History of cholecystectomy History of hand surgery Trigger finger release. History of lumbar laminectomy Status post transposition of nerve Right ulnar nerve transposition. Family History Family History Mother Asthma Family history of cardiovascular disease Family history of kidney disease Family history of malignant neoplasm of cervix, Onset Age: 68 Father Family history of peptic ulcer Family history of malignant neoplasm of stomach Family history of emphysema Sibling Family history of malignant neoplasm of brain,
--- NOTE | 2022-04-15 14:05 | WPDCARDVER ---
Cardioversion Cardioversion Date of procedure: 04/15/22 Procedure: Elective synchronized electrical cardioversion Pre-op diagnosis: Atrial flutter with RVR Post-op diagnosis: Other (Sinus rhythm) Indications: Atrial flutter with RVR Description of procedure: Start time: 13:33 End time: 14:00 Total of Versed 5mg and Fentanyl 100mcg were administered by the RN Miguel Angel Khoury. Patient brought to the chest pain center. Procedure discussed with the patient, including procedural details, risks vs benefits, etc. Patient agreed to proceed with procedure. Written informed consent obtained. Defibrillator pads placed in an anteroposterior position. Time out conducted by the RN. Sedation administered. Once patient was adequately sedated, synchronized electrical cardioversion was performed with 1 shock at 200 joules. Patient converted to sinus rhythm. Patient's hemodynamics were monitored throughout the procedure, and she remained hemodynamically stable throughout. Post-cardioversion EKG obtained and confirmed sinus rhythm. Sedation: Total of Versed 5mg and Fentanyl 100mcg were administered by the RN Miguel Angel Khoury. Findings: Successful synchronized electrical cardioversion with samaritan of sinus rhythm with 1 shock at 200 joules. Conclusion: Successful synchronized electrical cardioversion with samaritan of sinus rhythm with 1 shock at 200 joules.
== END 2022-04-15 15:05 | disposition home or self-care (01) ==
PROVIDERS: PCP Family Medicine; Visit Provider Internal Medicine
PROC: 5A2204Z Restoration of Cardiac Rhythm, Single (ICD-10-PCS; principal; 2022-04-15 13:00)
DX: I48.91 Unspecified atrial fibrillation (principal); D64.9 Anemia, unspecified; E55.9 Vitamin D deficiency, unspecified; Z79.51 Long term (current) use of inhaled steroids; Z79.01 Long term (current) use of anticoagulants
CPT/HCPCS: 36415; 80048; 83735; 92960; J2250; J3010; J7040

== ENCOUNTER 2022-05-13 02:28 | Day surgery (SDC) | payer MEDICARE, SELFPAY ==
[2022-05-12 12:57] VITALS: BMI 24.5
[2022-05-13] VITALS (12 sets, daily range): BP systolic 102–130; BP diastolic 59–89; PULSE 61–114; RESP 10–16; TEMP 36; O2SAT 99–100; BMI 24.5
--- NOTE | 2022-05-13 10:00 | ECG_ITS ---
Measurements Intervals [place] Rate: 114 P: FL: 0 QRS: 5 QRSD: 97 T: 0 QT: 363 QTc: 501 Interpretive Statements ATRIAL FLUTTER/TACHYCARDIA WITH RAPID VENTRICULAR RESPONSE NONSPECIFIC T-WAVE ABNORMALITY ABNORMAL RHYTHM ECG COMPARED TO ECG 04/15/2022 14:03:56 ATRIAL FLUTTER NOW PRESENT T-WAVE ABNORMALITY NOW PRESENT Electronically Signed On 05-13-2022 15:02:02 [employer] by Angel Chavez M.D.
[2022-05-13 10:54] LABS: Anion Gap 5 mmol/L (8-16); Blood Urea Nitrogen 15 mg/dL (7-17); Calcium 8.8 mg/dL (8.4-10.2); Carbon Dioxide 28 mmol/L (22-30); Chloride 105 mmol/L (98-107); Estimated CRCL calculation 33 ml/min; Estimated Glomerular Filt Rate 49; Glucose 94 mg/dL (65-110); Magnesium 2.2 mg/dL (1.6-2.3); Potassium 4.5 mmol/L (3.4-5.0); Sodium 138 mmol/L (137-145)
--- NOTE | 2022-05-13 11:11 | WPDMODSED ---
Moderate Sedation Note-Pt Data Patient Data Diagnosis: Atrial flutter Present Complaint: Atrial flutter Procedure to be performed/Plan: Electrical cardioversion Moderate sedation Allergies Allergy/AdvReac Type Severity Reaction Status Date / Time hydrochlorothiazide [Dyazide] Allergy Unknown Unknown Verified 05/13/22 10:26 aspirin AdvReac Intermediate Abdominal Verified 05/13/22 10:26 Pain codeine AdvReac Intermediate Abdominal Verified 05/13/22 10:26 Pain pregabalin [Lyrica] AdvReac Unknown Anemia Verified 05/13/22 10:26 triamterene AdvReac Unknown Unknown Verified 05/13/22 10:26 Home Medications Medication Instructions Recorded Confirmed Type pyridoxine (vitamin B6) 100 mg 100 mg PO DAILY 04/11/19 04/15/22 History tablet Centrum Silver Women 1 cap PO DAILY 08/02/20 04/15/22 History albuterol sulfate 90 mcg/actuation 2 puff inhalation Q6H PRN 08/02/20 05/12/22 History aerosol inhaler (ProAir HFA) Shortness Of Breath guaifenesin 600 mg tablet, 600 mg PO Q12H PRN Cough 08/02/20 05/12/22 History extended release 12 hr (Mucinex) lysine 500 mg tablet (L-Lysine) 500 mg PO DAILY 08/02/20 04/15/22 History polyethylene glycol 3350 17 gram 17 g PO DAILY 08/02/20 05/12/22 History oral powder packet (Miralax) vit C,E,zinc,copper-[id number] 250 1 cap PO DAILY 08/02/20 05/12/22 History mg-lutein 5 mg-zeaxanthin 1 mg capsule (Ocuvite Adult 50 Plus) rivaroxaban 20 mg tablet (Xarelto) 20 mg PO DAILY@1700 #30 tabs 08/03/20 05/13/22 Rx calcium carbonate 500 mg calcium 600 mg PO BID 11/20/21 04/15/22 History (1,250 mg) tablet docusate sodium 100 mg capsule 200 mg PO HS 11/20/21 04/15/22 History (Colace) fluticasone propionate 50 1 spray intranasal DAILY PRN Runny 11/20/21 05/12/22 History mcg/actuation nasal Nose spray,suspension metoprolol succinate 50 mg 50 mg PO DAILY 11/20/21 05/12/22 History tablet,extended release 24 hr olopatadine 0.2 % eye drops 1 drp EACH EYE DAILY PRN ITCHY EYES 11/20/21 04/15/22 History vitamin E 400 unit tablet 400 unit PO EVERY OTHER DAY 11/20/21 04/15/22 History montelukast 10 mg tablet 10 mg PO DAILY #90 tabs 12/02/21 04/15/22 Rx ferrous fumarate 324 mg (106 mg 324 mg PO DAILY #90 tabs 01/20/22 04/15/22 Rx iron) tablet omeprazole 40 mg capsule,delayed 40 mg PO DAILY #90 caps 04/02/22 05/12/22 Rx release alprazolam 0.5 mg tablet 1 mg PO HS 04/15/22 05/12/22 History ergocalciferol (vitamin D2) 1,250 50,000 unit PO MONTHLY 04/15/22 04/15/22 History mcg (50,000 unit) capsule fluticasone 250 mcg-salmeterol 50 1 inh inhalation BID 04/15/22 04/15/22 History mcg/dose blistr powdr for inhalation (Advair Diskus) amitriptyline 50 mg tablet 50 mg PO QHS #90 tabs 04/16/22 05/12/22 Rx amiodarone 200 mg tablet 400 mg PO BID 05/12/22 05/12/22 History Current Medications: Active Medications Sodium Chloride (Normal Saline Iv) 1,000 mls @ 30 mls/hr IV CONT .Q24H [facility] Sedation/Anesthesia: No previous sedation/anesthesia problems (including family history). [facility] Past Medical History Medical History Anemia Atrial flutter with rapid ventricular response echo: normal LV, ef >70%, grade 2 diastolic dysfunciton, aneurysmal atrial septum with negative bubble study. FAN/ successful cardioversion now back in flutter. Elevated troponin ETD (eustachian tube dysfunction) History of peptic ulcer Syncope Vitamin D deficiency Surgical History Surgical History History of breast biopsy History of carpal tunnel surgery History of cholecystectomy History of hand surgery Trigger finger release. History of lumbar laminectomy Status post transposition of nerve Right ulnar nerve transposition. Family History Family History Mother Asthma Family history of cardiovascular disease Famil
--- NOTE | 2022-05-13 11:20 | WPDCARDVER ---
Cardioversion Cardioversion Date of procedure: 05/13/22 Procedure: 1. Moderate sedation 2. Electrical cardioversion Pre-op diagnosis: Atrial flutter Post-op diagnosis: Same Indications: Atrial flutter Description of procedure: After discussing risks, benefits alternatives of the procedure patient agreeable via verbal and written informed consent. Risks discussed included skin irritation or burn, stroke, shock into a more problematic heart rhythm, adverse reaction anesthesia, . After establishing continuous telemetry monitoring, pulse oxygenation and serial blood pressure assessments, time-out was taken procedure was started. Procedure start time 11:15 a.m. Procedure stop time 11:20 a.m. Complications: None Blood loss: None Sedation: A total of 2 mg Versed 25 mcg of fentanyl were given for sedation Medications were administered patient was monitored by Rosalba Sol RN Findings: 1. Successful buddhism of sinus rhythm using 125 joules of biphasic synchronized energy from atrial flutter 2. Moderate sedation Conclusion: 1. Hoahaoism of sinus rhythm from atrial flutter using 125 joules of biphasic synchronized energy. 2. Moderate sedation
--- NOTE | 2022-05-13 11:45 | ECG_ITS ---
Measurements Intervals [place] Rate: 59 P: 75 [place]: 164 QRS: 25 QRSD: 89 T: 41 QT: 420 QTc: 419 Interpretive Statements SINUS BRADYCARDIA WITH OCCASIONAL SUPRAVENTRICULAR PREMATURE COMPLEXES LEFT ATRIAL ENLARGEMENT [-0.15mV P WAVE IN V1/V2] COMPARED TO ECG 05/13/2022 10:21:55 SINUS BRADYCARDIA NOW PRESENT Electronically Signed On 05-13-2022 15:03:25 LEASING PROFESSIONAL by Angel Chavez M.D.
== END 2022-05-13 13:35 | disposition home or self-care (01) ==
PROVIDERS: PCP Family Medicine; Visit Provider Internal Medicine Cardiovascular Disease
PROC: 5A2204Z Restoration of Cardiac Rhythm, Single (ICD-10-PCS; principal; 2022-05-13 11:30)
DX: I48.92 Unspecified atrial flutter (principal); D64.9 Anemia, unspecified; E55.9 Vitamin D deficiency, unspecified; Z79.51 Long term (current) use of inhaled steroids; Z79.01 Long term (current) use of anticoagulants
CPT/HCPCS: 36415; 80048; 83735; 92960; J2250; J3010; J7030

== ENCOUNTER → 2022-08-07 13:59 | Outpatient (CLI) | payer MEDICARE, SELFPAY ==
--- NOTE | ~2022-08-07 | XR_ITS ---
EXAMINATION: XR tibia fibula RT 2V DATE: 08/07/2022 14:15 INDICATION: Right lower leg injury. TECHNIQUE: 2 views of right tibia and fibula were obtained. COMPARISON: None. FINDINGS: Bone alignment is normal. No fracture. Joint spaces are well maintained. There is no knee j oint effusion. There is pretibial soft tissue swelling. IMPRESSION: 1. No fracture. Reviewed, dictated and finalized at location A. IMPRESSION: 1. No fracture.
== END ==
PROVIDERS: PCP Family Medicine; Visit Provider Nurse Practitioner Family
DX: S80.11XA Contusion of right lower leg, initial encounter (principal); X58.XXXA Exposure to other specified factors, initial encounter
CPT/HCPCS: 73590

== ENCOUNTER 2022-08-11 14:56 | Emergency (ER) | payer MEDICARE, SELFPAY ==
--- NOTE | ~2022-08-11 | XR_ITS ---
EXAMINATION: XR chest 2V Exam Date/Time: 08/11/2022 15:20 CDT HISTORY: COUGH/FEVER/SOB Comparison: 08/02/2020. RESULT: Lines, tubes, and devices: None. Lungs and pleura: Senescent/emphysematous change, otherwise clear. Cardiomediastinal silhouette: Stable. Other: No acute osseous or upper abdominal finding. IMPRESSION: No acute cardiopulmonary process. Reviewed, dictated and finalized at location K.
--- NOTE | 2022-08-11 15:09 | ED.GENADULT ---
HPI - General Adult General Chief complaint: Upper Respiratory Infection Stated complaint: cough,sore throat,fever Time Seen by Provider: 08/11/22 15:09 Source: patient, RN notes reviewed and old records reviewed Mode of arrival: ambulatory Limitations: no limitations History of Present Illness HPI narrative: 77-year-old female presents to the [facility] with complaints of fever, cough, sore throat, wheezing symptoms since Wednesday has a history of asthma Related Data Home Medications Medication Instructions Recorded Confirmed pyridoxine (vitamin B6) 100 mg 100 mg PO DAILY 04/11/19 08/07/22 tablet Centrum Silver Women 1 cap PO DAILY 08/02/20 08/07/22 albuterol sulfate 90 mcg/actuation 2 puff inhalation Q6H PRN 08/02/20 08/07/22 aerosol inhaler (ProAir HFA) Shortness Of Breath guaifenesin 600 mg tablet, 600 mg PO Q12H PRN Cough 08/02/20 08/07/22 extended release 12 hr (Mucinex) lysine 500 mg tablet (L-Lysine) 500 mg PO DAILY 08/02/20 08/07/22 polyethylene glycol 3350 17 gram 17 g PO DAILY 08/02/20 08/07/22 oral powder packet (Miralax) vit C,E,zinc,copper-[id number] 250 1 cap PO DAILY 08/02/20 08/07/22 mg-lutein 5 mg-zeaxanthin 1 mg capsule (Ocuvite Adult 50 Plus) calcium carbonate 500 mg calcium 600 mg PO BID 11/20/21 08/07/22 (1,250 mg) tablet docusate sodium 100 mg capsule 200 mg PO HS 11/20/21 08/07/22 (Colace) fluticasone propionate 50 1 spray intranasal DAILY PRN Runny 11/20/21 08/07/22 mcg/actuation nasal Nose spray,suspension metoprolol succinate 50 mg 50 mg PO DAILY 11/20/21 08/07/22 tablet,extended release 24 hr olopatadine 0.2 % eye drops 1 drp EACH EYE DAILY PRN ITCHY EYES 11/20/21 08/07/22 vitamin E 400 unit tablet 400 unit PO EVERY OTHER DAY 11/20/21 08/07/22 ergocalciferol (vitamin D2) 1,250 50,000 unit PO MONTHLY 04/15/22 08/07/22 mcg (50,000 unit) capsule amiodarone 200 mg tablet 400 mg PO BID 05/12/22 08/07/22 Allergies Allergy/AdvReac Type Severity Reaction Status Date / Time hydrochlorothiazide [Dyazide] Allergy Unknown Unknown Verified 08/07/22 13:28 aspirin AdvReac Intermediate Abdominal Verified 08/07/22 13:28 Pain codeine AdvReac Intermediate Abdominal Verified 08/07/22 13:28 Pain pregabalin [Lyrica] AdvReac Unknown Anemia Verified 08/07/22 13:28 triamterene AdvReac Unknown Unknown Verified 08/07/22 13:28 Review of Systems Review of Systems: All systems reviewed & are unremarkable except as noted in HPI and below Constitutional: Constitutional: Reports no additional constitutional complaints Eyes: Eyes: Reports no additional eye complaints ENT: Reports system reviewed and no additional complaints, except as documented Cardiovascular: Cardiovascular: Reports no additional cardiovascular complaints, Denies chest pain and Denies dyspnea Respiratory: Respiratory: Reports as per HPI, Denies chest congestion, Reports cough, Reports dyspnea and Reports wheezing Gastrointestinal: Gastrointestinal: Reports no additional gastrointestinal complaints, Denies abdominal pain, Denies nausea and Denies vomiting Musculoskeletal: Musculoskeletal: Reports no additional musculoskeletal complaints Integumentary/Breasts: Skin/Breast: Reports system reviewed and no additional complaints, except as docu Neurologic: Reports system reviewed and no additional complaints, except as documented Psychiatric: Psychiatric: Reports no additional psychiatric complaints Allergic/Immunologic: Allergic/Immunologic: Reports no additional allergic/immunologic complaints PMFSH Past Medical History Medical History Anemia Atrial flutter with rapid ventricular response echo: normal LV, ef >70%, grade 2 diastolic dysfunciton, aneurysmal atrial septum with negative bubble study. FAN/ successful cardioversion now back in flutter. Elevated troponin ETD (eustachian tube dysfunction) History of peptic ulcer Syncope Vitamin D deficiency
[2022-08-11 15:12] VITALS: BP 132/55; PULSE 92; RESP 16; TEMP 36.6; O2SAT 99
[2022-08-11] MEDS: IPRATROPIUM BR 0.02% INH SOLN 0.5 MG/2.5 ML VIAL INHALATION (15:29)
[2022-08-11] MEDS: LEVALBUTEROL NEB 1.25 MG/3 ML INHALATION (15:29)
== END 2022-08-11 16:20 | disposition home or self-care (01) ==
PROVIDERS: Emergency Provider Nurse Practitioner; PCP Family Medicine
DX: J45.909 Unspecified asthma, uncomplicated (principal); Z20.822 Contact with and (suspected) exposure to COVID-19; I48.91 Unspecified atrial fibrillation; E55.9 Vitamin D deficiency, unspecified
CPT/HCPCS: 71046; 87426; 87804; 94640; 99213; C9803; G0463

== ENCOUNTER 2022-12-02 10:29 | Outpatient (CLI) | payer MEDICARE, SELFPAY ==
[2022-12-02 19:05] LABS: Basophils Absolute Auto 0.1 K/mm3 (0.0-0.1); Basophils Percent Auto 2.4 % (0.2-1.2); Eosinophils Absolute Auto 0.2 K/mm3 (0-0.3); Eosinophils Percent Auto 4.9 % (0-4.4); Hematocrit 36.6 % (37.0-47.0); Hemoglobin 11.7 g/dL (12.0-15.0); Lymphocytes Absolute Auto 1.53 K/mm3 (0.9-3.2); Lymphocytes Percent Auto 41.6 % (18.3-44.2); Mean Corpuscular Hemoglobin 29.8 pg (26-34); Mean Corpuscular Volume 93.1 fl (80-100); Mean Platelet Volume 11.6 fl (7.4-10.4); Monocytes Absolute Auto 0.6 K/mm3 (0.1-0.6); Monocytes Percent Auto 16.8 % (2.6-8.5); Neutrophils Absolute Auto 1.3 K/mm3 (1.3-6.7); Neutrophils Percent Auto 34.3 % (45.5-73.1); Platelet Count Result 173 k/mm3 (150-375); Red Blood Count 3.93 M/mm3 (4.2-5.4); Red Cell Distribution Width 14.2 % (11.5-14.5); White Blood Count 3.7 K/mm3 (4.5-10.0)
[2022-12-02 19:21] LABS: Iron 83 ug/dL (37-170)
[2022-12-02 19:23] LABS: Alanine Aminotransferase 23 U/L (6-35); Alkaline Phosphatase 76 U/L (38-126); Anion Gap 2 mmol/L (8-16); Aspartate Amino Transferase 41 U/L (14-36); Bilirubin,Total 0.3 mg/dL (0.2-1.3); Blood Urea Nitrogen 19 mg/dL (7-17); Calcium 9.3 mg/dL (8.4-10.2); Carbon Dioxide 35 mmol/L (22-30); Chloride 97 mmol/L (98-107); Cholesterol 205 mg/dL (0-200); Estimated Glomerular Filt Rate 48; Glucose 73 mg/dL (65-110); HDL Direct 70 mg/dL; Potassium 4.3 mmol/L (3.4-5.0); Sodium 134 mmol/L (137-145); Triglycerides 66 mg/dL (<150)
[2022-12-02 19:30] LABS: Percent Iron Saturation 26 % (20-50)
[2022-12-02 19:40] LABS: LDL Cholesterol Direct 94 mg/dL
[2022-12-02 20:34] LABS: Vitamin D 25 Hydroxy 67.5 ng/mL
[2022-12-05 09:41] LABS: Immunoglobulin A 168 mg/dL (70-320); TTG IGA AB <1.0 U/mL (<15.0)
== END 2022-12-02 10:30 | disposition home or self-care (01) ==
PROVIDERS: PCP Family Medicine; Visit Provider Family Medicine
DX: R53.83 Other fatigue (principal); K59.00 Constipation, unspecified; I49.3 Ventricular premature depolarization; M81.0 Age-related osteoporosis without current pathological fracture; I10 Essential (primary) hypertension
CPT/HCPCS: 36415; 80053; 80061; 82306; 82607; 82728; 82784; 83540; 83550; 84443; 85025; 86364

== ENCOUNTER 2022-12-04 09:43 | Outpatient (CLI) | payer MEDICARE, SELFPAY ==
--- NOTE | ~2022-12-04 | DEXA_ITS ---
Bone Density Report Name: LEX MCHUGH Age: 77 Sex: Female Ethnicity: White Date of : 1945 Indication: osteopenia; height loss; asthma or emphysema; postmenopausal Referring Provider: HECTOR PENNINGTON Study: Bone densitometry was performed. Exam Date: December 04, 2022 Accession number: [id number] Bone Density: Region BMD T-score Z-score Classification AP Spine(L1, L2) 0.959 -0.2 2.1 Normal Femoral Neck (Left) 0.705 -1.3 0.8 Osteopenia Total Hip (Left) 0.771 -1.4 0.4 Osteopenia Femoral Neck (Right) 0.699 -1.4 0.7 Osteopenia Total Hip (Right) 0.763 -1.5 0.3 Osteopenia Total Hip Mean 0.767 -1.5 0.4 Osteopenia World Health Organization criteria for BMD impression classify patients as: Normal (T-score at or above -1.0), Osteopenia (T-score between -1.0 and -2.5), or Osteoporosis (T-score at or below -2.5). 10-year Fracture Risk(1): Major Osteoporotic Fracture 11% Hip Fracture 2.0% Reported Risk Factors: [place] (), Neck BMD=0.705, BMI=25.3 (1) FRAX(R) Version 3.08. Fracture probability calculated for an untreated patient. Fracture probability may be lower if the patient has received treatment. Previous Exams: Region Exam Age BMD T-score BMD Change BMD Change Date g/cm2 vs Baseline vs Previous AP Spine (L1-L2) 12/04/2022 77 0.959 -0.2 0.161 (20.1%)# 0.081 (9.2%)* 12/14/2018 73 0.878 -0.9 0.080 (10.0%)# 0.027 (3.2%)* 10/23/2016 71 0.851 -1.2 0.053 (6.6%)# 0.053 (6.6%)# 03/09/2013 67 0.798 -1.6 Total Hip(Left) 12/04/2022 77 0.771 -1.4 0.046 (6.4%)# 0.001 (0.2%)# 12/14/2018 73 0.770 -1.4 0.045 (6.2%)# -0.018 (-2.3%) 10/23/2016 71 0.788 -1.3 0.063 (8.8%)# 0.063 (8.8%)# 03/09/2013 67 0.724 -1.8 Total Hip(Right) 12/04/2022 77 0.763 -1.5 -0.014 (-1.8%) 0.035 (4.8%)* 12/14/2018 73 0.728 -1.8 -0.049 (-6.3%) -0.034 (-4.5%) 10/23/2016 71 0.762 -1.5 -0.015 (-1.9%) -0.015 (-1.9%) 03/09/2013 67 0.777 -1.4 *Denotes significance at 95% confidence level, LSC for AP Spine = 0.022 g/cm2, LSC for Total Hip = 0.027 g/cm2 # Denotes dissimilar scan types or analysis methods Clinical Information Provided by Patient: Has used the following medications: Fosamax (i.e. alendronate), Vitamin D Has the following medical conditions: Asthma or Emphysema Patient maximum height was 65 Menopause Age: 54 No regular weight bearing exercise Onset of menses at age 14 Number of children 0
--- NOTE | ~2022-12-04 | MM_ITS ---
EXAMINATION: MM screening randall BI w ericka HISTORY: Screening mammogram TECHNIQUE: Craniocaudal and mediolateral oblique 3-D tomosynthesis images were obtained and synthetic 2-D images were generated. CAD analysis was submitted and interpreted. COMPARISON: 12/14/2018, 11/07/2017 bilateral screening mammogram examinations BREAST PARENCHYMAL COMPOSITION: The breasts are heterogeneously dense, which may obscure small masses . FINDINGS: Numerous bilateral benign calcifications are again noted. There is no evidence of suspiciou s mass, calcification, or architectural distortion to suggest malignancy in either breast. There has been no suspicious interval change. IMPRESSION: 1. No mammographic evidence of malignancy. 2. Recommend routine screening mammography in one year. BI-RADS Category 2: Benign finding(s). Reviewed, dictated and finalized at location A.
== END 2022-12-04 09:44 | disposition home or self-care (01) ==
LOC: ANHIMG 09:44
PROVIDERS: PCP Family Medicine; Visit Provider Physician Assistant
DX: Z12.31 Encounter for screening mammogram for malignant neoplasm of breast (principal); Z78.0 Asymptomatic menopausal state; M85.89 Other specified disorders of bone density and structure, multiple sites
CPT/HCPCS: 77063; 77067; 77080

== ENCOUNTER 2023-04-07 10:17 | Outpatient (CLI) | payer MEDICARE, SELFPAY ==
[2023-04-07 13:12] LABS: Basophils Absolute Auto 0.1 K/mm3 (0.0-0.1); Basophils Percent Auto 1.9 % (0.2-1.2); Eosinophils Absolute Auto 0.1 K/mm3 (0-0.3); Eosinophils Percent Auto 2.9 % (0-4.4); Hematocrit 36.5 % (37.0-47.0); Hemoglobin 11.9 g/dL (12.0-15.0); Immature Granulocyte Absolute 0.01 K/mm3 (0.00-0.031); Immature Granulocyte Percent A 0.2 % (0-0.5); Lymphocytes Absolute Auto 1.49 K/mm3 (0.9-3.2); Lymphocytes Percent Auto 35.4 % (18.3-44.2); Mean Corpuscular HGB Conc 32.6 g/dl (32-36); Mean Corpuscular Hemoglobin 31.3 pg (26-34); Mean Corpuscular Volume 96.1 fl (80-100); Mean Platelet Volume 11.5 fl (7.4-10.4); Monocytes Absolute Auto 0.6 K/mm3 (0.1-0.6); Neutrophils Absolute Auto 1.9 K/mm3 (1.3-6.7); Neutrophils Percent Auto 44.6 % (45.5-73.1); Platelet Count Result 205 k/mm3 (150-375); Red Cell Distribution Width 13.2 % (11.5-14.5); White Blood Count 4.2 K/mm3 (4.5-10.0)
[2023-04-07 13:39] LABS: Alanine Aminotransferase 16 U/L (6-35); Albumin Level 3.8 g/dL (3.5-5.1); Alkaline Phosphatase 76 U/L (38-126); Anion Gap 3 mmol/L (8-16); Aspartate Amino Transferase 53 U/L (14-36); Bilirubin,Total 0.4 mg/dL (0.2-1.3); Blood Urea Nitrogen 17 mg/dL (7-17); Calcium 9.2 mg/dL (8.4-10.2); Carbon Dioxide 35 mmol/L (22-30); Chloride 97 mmol/L (98-107); Estimated Glomerular Filt Rate 54; Glucose 89 mg/dL (65-110); Potassium 4.4 mmol/L (3.4-5.0); Sodium 135 mmol/L (137-145)
== END 2023-04-07 10:18 | disposition home or self-care (01) ==
LOC: ANHGOSHLAB 10:19
PROVIDERS: PCP Family Medicine; Visit Provider Family Medicine
DX: D63.8 Anemia in other chronic diseases classified elsewhere (principal)
CPT/HCPCS: 36415; 80053; 85025

== ENCOUNTER → 2023-04-08 11:30 | Outpatient (CLI) | payer MEDICARE, SELFPAY ==
--- NOTE | ~2023-04-08 | XR_ITS ---
EXAMINATION: XR hip BI 2V w AP pelvis DATE: 04/08/2023 11:43 INDICATION: Chronic bilateral hip pain TECHNIQUE: AP view the pelvis and two views of each hip were obtained. COMPARISON: None. FINDINGS: Bone alignment is normal. There is no fracture. The soft tissues are unremarkable. A large volume of colonic stool is present in the left colon. Calcified atherosclerosis is noted. There is se fausto lower lumbar spondylosis. IMPRESSION: 1. No acute osseous abnormality. Reviewed, dictated and finalized at location F. NDER ROLL PRESS OPERATOR
== END ==
PROVIDERS: PCP Family Medicine; Visit Provider Family Medicine
DX: R27.0 Ataxia, unspecified (principal); M25.552 Pain in left hip; M25.551 Pain in right hip
CPT/HCPCS: 73521

== ENCOUNTER → 2023-04-14 09:34 | Outpatient (CLI) | payer MEDICARE, SELFPAY ==
--- NOTE | ~2023-04-14 | MR_ITS ---
MRI of the brain Clinical History: Ataxia Technique: Axial and sagittal T1-weighted images were acquired. These were followed by axial T2-weigh angella, diffusion weighted, gradient, and FLAIR images. Findings: There is no acute infarct, intracranial hemorrhage, or mass lesion. There are minimal chron ic microvascular ischemic changes in the periventricular white matter. Ventricles and subarachnoid spaces are nondilated. Orbits are unremarkable. Paranasal sinuses and mas toid air cells are clear. Major intracranial flow voids are intact. Sagittal midline structures are intact. IMPRESSION: No acute abnormality. Minimal chronic microvascular ischemic changes. Reviewed, dictated and finalized at location . DELIVERY PROFESSIONAL
== END ==
PROVIDERS: PCP Family Medicine; Visit Provider Family Medicine
DX: R27.0 Ataxia, unspecified (principal); R49.0 Dysphonia
CPT/HCPCS: 70551

== ENCOUNTER 2023-05-25 11:22 | Outpatient (CLI) | payer MEDICARE, SELFPAY ==
[2023-05-25 13:41] LABS: Thyroid Stimulating Hormone < 0.015 uIU/mL (0.465-4.680)
[2023-05-25 14:06] LABS: Vitamin B12 > 1000.0 pg/mL (239-931)
[2023-05-28 11:48] LABS: Vitamin D 1,25 (OH)2 Total 34 pg/mL (18-72); Vitamin D2 1,25 (OH)2 12 pg/mL; Vitamin D3 1,25 (OH)2 22 pg/mL
[2023-05-30 06:45] LABS: Red Blood Cell Folate 781 ng/mL RBC (>280)
== END 2023-05-25 11:23 | disposition home or self-care (01) ==
LOC: ANHGOSHLAB 11:24
PROVIDERS: PCP Family Medicine; Visit Provider Psychiatry & Neurology Neurology
DX: E55.9 Vitamin D deficiency, unspecified (principal); G89.29 Other chronic pain; M54.50 Low back pain, unspecified; R27.0 Ataxia, unspecified; R29.6 Repeated falls; M79.7 Fibromyalgia
CPT/HCPCS: 36415; 82607; 82652; 82747; 84443

== ENCOUNTER 2023-05-28 08:43 | Outpatient (CLI) | payer MEDICARE, SELFPAY ==
--- NOTE | ~2023-05-28 | US_ITS ---
EXAMINATION: US thyroid DATE: 05/28/2023 08:56 INDICATION: Thyrotoxicosis, unspecified without thyrotoxic crisis. TECHNIQUE: Multiple ultrasound images of the thyroid were obtained. COMPARISON: None. FINDINGS: The right thyroid lobe measures 3.7 x 1.7 x 1.2 cm. The left thyroid lobe measures 4.3 x 1.6 x 1.6 c m. In the right thyroid lobe, there is a 10 mm predominantly solid, hypoechoic, wider than tall nodu le with smooth margin without echogenic foci (TI-RADS TR4). In the thyroid isthmus, there is a 12 mm mixed cystic and solid, hypoechoic, wider than tall nodule with smooth margin without echogenic foci (TR3). In the left thyroid lobe, there is a 6 mm cystic nodule (TR1). IMPRESSION: 1. Small thyroid nodules. Thyroid ultrasound is recommended in one year. Reviewed, dictated and finalized at location E. ESS CONSULTANT
== END 2023-05-28 08:44 ==
LOC: GOSHIMG 08:44
PROVIDERS: PCP Family Medicine; Visit Provider Family Medicine
DX: E05.90 Thyrotoxicosis, unspecified without thyrotoxic crisis or storm (principal); E04.2 Nontoxic multinodular goiter
CPT/HCPCS: 76536

== ENCOUNTER 2023-05-28 08:55 | Outpatient (CLI) | payer MEDICARE, SELFPAY ==
[2023-05-28 13:31] LABS: Thyroid Stimulating Hormone 0.322 uIU/mL (0.465-4.680)
[2023-05-31 04:31] LABS: Thyroid Peroxidase Antibodies 2 IU/mL (<9)
== END 2023-05-28 08:56 | disposition home or self-care (01) ==
PROVIDERS: PCP Family Medicine; Visit Provider Family Medicine
DX: E05.90 Thyrotoxicosis, unspecified without thyrotoxic crisis or storm (principal)
CPT/HCPCS: 36415; 84443; 86376

== ENCOUNTER 2023-06-18 22:20 | Inpatient (IN) | payer MEDICARE, SELFPAY ==
--- NOTE | ~2023-06-18 | XR_ITS ---
XR hip LT 2V w AP pelvis DATE: 06/19/2023 00:16 INDICATION: Ground-level fall. Left hip pain. TECHNIQUE: AP pelvis. AP and lateral views of left hip. COMPARISON: 04/08/2023 AP pelvis and bilateral hips FINDINGS: There is evidence of fracture of the left sacrum. These comminuted fracture of the superior pubic ramus and inferior pubic ramus on the left. The pubic symphysis and sacroiliac joints are intact. IMPRESSION: Comminuted left superior pubic ramus and mildly displaced fracture, inferior pubic ramus mildly displaced fracture Left sacral fracture Reviewed, dictated and finalized at location A.
--- NOTE | ~2023-06-18 | CT_ITS ---
EXAMINATION: CT pelvis wo con DATE: 06/19/2023 01:18 INDICATION: Left hip and groin pain after ground-level fall TECHNIQUE: Computed tomography (CT) of the pelvis was performed without intravenous contrast. Automat ed exposure control and iterative reconstruction technique were employed. Exam dose: 408.20 mGy-cm t otal exam DLP. COMPARISON: 06/18/2023 left hip FINDINGS: There is minimally displaced fracture of the left sacral alar. There is comminuted fracture of the left superior pubic ramus and fracture of the left inferior pubic ramus. Multilevel severe degenerative disc disease of the included lumbar spine. There is a prominent of fecal material in the colon. Small fat-containing periumbilical hernia. IMPRESSION: Left sacral alar, left superior pubic and inferior pubic ramus fractures Reviewed, dictated and finalized at Location A. Reviewed, dictated and finalized at location A. IMPRESSION: Left sacral alar, left superior pubic and inferior pubic ramus fra ctures
--- NOTE | ~2023-06-18 | CT_ITS ---
EXAMINATION: CT cervical spine wo con DATE: 06/19/2023 00:15 INDICATION: Ground level fall. Head injury. TECHNIQUE: Computed tomography (CT) of the cervical spine was performed without intravenous contrast. Automated exposure control and iterative reconstruction technique were employed. Exam dose: 149.00 mGy-cm total exam DLP. COMPARISON: None FINDINGS: There is reversal of the cervical curvature, which may be due to muscle spasm and/or positi oning. There is severe degenerative disc disease at C3-4 through T2-3. There is associated mild retrolisthe sis at C4-5 and C5-6 . There is 2.8 mm anterolisthesis at C7-T1. Degenerative change at the apophyseal joints. Prominent uncovertebral joint spurring at C3-4 through C6-7. No fracture or dislocation or locked facet or prevertebral soft tissue thickening. IMPRESSION: Reversal of cervical curvature Severe multi-level degenerative disc disease Reviewed, dictated and finalized at Location A. Reviewed, dictated and finalized at location A.
--- NOTE | ~2023-06-18 | CT_ITS ---
EXAMINATION: CT brain wo con DATE: 06/19/2023 00:15 INDICATION: Ground-level fall, head injury. Patient on anticoagulation therapy. TECHNIQUE: Computed tomography (CT) of the head was performed without intravenous contrast. The mA wa s adjusted according to patient size. Iterative reconstruction technique was employed. Exam dose: 75 6.67 mGy-cm total exam DLP. COMPARISON: 04/14/2023 MRI brain FINDINGS: No intracranial mass lesion or hemorrhage or cerebrovascular accident, midline shift or mas s effect is detected. No subdural or epidural hematoma. Completely opacified right sphenoid sinus. Opacified left ethmoid air cell. Bilateral lens replacements. No fracture or bone destruction of the cranial vault. IMPRESSION: No significant intracranial abnormality Completely opacified right sphenoid sinus. Opacified left ethmoid air cell. Reviewed, dictated and finalized at [facility]. Reviewed, dictated and finalized at [facility].
[2023-06-18 22:25] VITALS: BP 131/68; PULSE 73; RESP 18; TEMP 37.1; O2SAT 100
[2023-06-19] VITALS (10 sets, daily range): BP systolic 104–132; BP diastolic 42–60; PULSE 70–84; RESP 12–21; TEMP 36.4–37.2; O2SAT 93–100; BMI 28.1
--- NOTE | 2023-06-19 00:31 | ECG_ITS ---
Measurements Intervals [place] Rate: 71 P: 84 SD: 162 QRS: 51 QRSD: 101 T: 66 QT: 397 QTc: 433 Interpretive Statements SINUS RHYTHM POSSIBLE LEFT ATRIAL ENLARGEMENT INCOMPLETE RIGHT BUNDLE BRANCH BLOCK BORDERLINE ECG COMPARED TO ECG 05/13/2022 11:23:39 SINUS RHYTHM NOW PRESENT INCOMPLETE RIGHT BUNDLE-BRANCH BLOCK NOW PRESENT Electronically Signed On 06-19-2023 7:33:11 CDT by Bob Suero D.O.
[2023-06-19] MEDS: MORPHINE SULFATE (*CRX) 4 MG/ML INJ IV PUSH ×5 (00:37→13:45)
[2023-06-19] MEDS: ONDANSETRON INJ 4 MG/2 ML VIAL IV PUSH (00:37)
[2023-06-19 00:50] LABS: Basophils Absolute Auto 0.1 K/mm3 (0.0-0.1); Basophils Percent Auto 0.5 % (0.2-1.2); Eosinophils Absolute Auto 0.1 K/mm3 (0-0.3); Eosinophils Percent Auto 0.7 % (0-4.4); Hematocrit 33.3 % (37.0-47.0); Hemoglobin 11.2 g/dL (12.0-15.0); Immature Granulocyte Absolute 0.07 K/mm3 (0.00-0.031); Immature Granulocyte Percent A 0.6 % (0-0.5); Lymphocytes Absolute Auto 1.23 K/mm3 (0.9-3.2); Lymphocytes Percent Auto 10.6 % (18.3-44.2); Mean Corpuscular HGB Conc 33.6 g/dl (32-36); Mean Corpuscular Hemoglobin 31.3 pg (26-34); Mean Platelet Volume 9.5 fl (7.4-10.4); Monocytes Absolute Auto 0.7 K/mm3 (0.1-0.6); Monocytes Percent Auto 5.6 % (2.6-8.5); Neutrophils Absolute Auto 9.5 K/mm3 (1.3-6.7); Platelet Count Result 182 k/mm3 (150-375); Red Blood Count 3.58 M/mm3 (4.2-5.4); Red Cell Distribution Width 12.2 % (11.5-14.5); White Blood Count 11.6 K/mm3 (4.5-10.0)
[2023-06-19 01:01] LABS: INR 1.9
[2023-06-19 01:02] LABS: Partial Thromboplastin Time 36.6 Seconds (22.3-36.8)
[2023-06-19 01:05] LABS: Alanine Aminotransferase 25 U/L (6-35); Albumin Level 3.6 g/dL (3.5-5.1); Alkaline Phosphatase 97 U/L (38-126); Anion Gap 1 mmol/L (4-12); Aspartate Amino Transferase 51 U/L (14-36); Bilirubin,Total 0.5 mg/dL (0.2-1.3); Blood Urea Nitrogen 16 mg/dL (7-17); Carbon Dioxide 31 mmol/L (22-30); Chloride 100 mmol/L (98-107); Estimated CRCL calculation 40 ml/min; Estimated Glomerular Filt Rate 54; Glucose 130 mg/dL (65-110); Sodium 132 mmol/L (137-145)
--- NOTE | 2023-06-19 01:29 | ED.FALL ---
HPI - Fall General Chief Complaint: Fall <Elizabeth Amos PA-C - Last Filed: 06/19/23 03:02> Stated Complaint: left hip pain s/p glf <Elizabeth Amos PA-C - Last Filed: 06/19/23 03:02> Time Seen by Provider: 06/18/23 23:24 <CHAVEZ Lacy Last Filed: 06/19/23 03:02> Source: patient <CHAVEZ Lacy Last Filed: 06/19/23 03:02> Mode of arrival: EMS <CHAVEZ Lacy Last Filed: 06/19/23 03:02> Limitations: no limitations <CHAVEZ Lacy Last Filed: 06/19/23 03:02> History of Present Illness HPI Narrative: patient is a 77-year-old female who presents the ED via EMS with report of a fall. Patient reports she tripped over the cord of her electric blanket just prior to arrival and fell backwards onto her bottom. She landed mostly on her left side. She is unsure if she hit her head. Denied LOC. She states she to crawl to find her phone to call for help. She was unable to sit or stand or ambulate due to the pain in her left hip. Denies other injuries. Denies neck or back pain. Denies numbness. Denies dizziness or lightheadedness, vision changes. Patient is on Xarelto due to history of a flutter. <Elizabeth Amos PA-C - Last Filed: 06/19/23 03:02> Related Data Home Medications: Home Medications Medication Instructions Recorded Confirmed pyridoxine (vitamin B6) 100 mg 100 mg PO DAILY 04/11/19 06/19/23 tablet Centrum Silver Women 1 cap PO DAILY 08/02/20 06/19/23 lysine 500 mg tablet (L-Lysine) 500 mg PO DAILY 08/02/20 06/19/23 polyethylene glycol 3350 17 gram 17 g PO DAILY 08/02/20 06/19/23 oral powder packet (Miralax) vit C,E,zinc,copper-inuxk2h 250 1 cap PO DAILY 08/02/20 06/19/23 mg-lutein 5 mg-zeaxanthin 1 mg capsule (Ocuvite Adult 50 Plus) calcium carbonate 500 mg calcium 600 mg PO BID 11/20/21 06/19/23 (1,250 mg) tablet docusate sodium 100 mg capsule 200 mg PO HS 11/20/21 06/19/23 (Colace) fluticasone propionate 50 1 spray intranasal DAILY PRN Runny 11/20/21 06/19/23 mcg/actuation nasal Nose spray,suspension metoprolol succinate 50 mg 50 mg PO DAILY 11/20/21 06/19/23 tablet,extended release 24 hr olopatadine 0.2 % eye drops 1 drp EACH EYE DAILY PRN ITCHY EYES 11/20/21 06/19/23 vitamin E 400 unit tablet 400 unit PO EVERY OTHER DAY 11/20/21 06/19/23 ergocalciferol (vitamin D2) 1,250 50,000 unit PO MONTHLY 04/15/22 06/19/23 mcg (50,000 unit) capsule amiodarone 200 mg tablet 100 mg PO QAM 12/02/22 06/19/23 acetaminophen 500 mg tablet 500 mg PO Q6H PRN Pain 04/07/23 06/19/23 (Tylenol Extra Strength) biotin 10,000 mcg capsule 10,000 mcg PO DAILY 05/18/23 06/19/23 albuterol sulfate 90 mcg/actuation 1 inh inhalation BID PRN Shortness 06/19/23 06/19/23 aerosol inhaler (ProAir HFA) Of Breath Or Wheezing fluticasone 250 mcg-salmeterol 50 1 inh inhalation BID 06/19/23 06/19/23 mcg/dose blistr powdr for inhalation (Advair Diskus) simethicone 80 mg chewable tablet 80 mg PO DAILY PRN abdominal 06/19/23 06/19/23 discomfort <Elizabeth Amos PA-C - Last Filed: 06/19/23 03:02> Allergies/Adverse Reactions: Allergies Allergy/AdvReac Type Severity Reaction Status Date / Time hydrochlorothiazide [Dyazide] Allergy Unknown Unknown Verified 05/25/23 09:33 aspirin AdvReac Intermediate Abdominal Verified 05/25/23 09:33 Pain codeine AdvReac Intermediate Abdominal Verified 05/25/23 09:33 Pain pregabalin [Lyrica] AdvReac Unknown Anemia Verified 05/25/23 09:33 triamterene AdvReac Unknown Unknown Verified 05/25/23 09:33 <WINSTON Lacy-C - Last Filed: 06/19/23 03:02> Review of Systems Review of Systems: CONSTITUTIONAL: Denies fever, chills, or sweats. CARDIOVASCULAR: Denies chest pain. RESPIRATORY: Denies dyspnea. GASTROINTESTINAL: Denies abdominal pain, nausea, vomiting. MUSCULOSKELETAL: See HPI. NEUROLOGIC: See HPI. <WINSTON Lacy
[2023-06-19 03:21] LABS: Add Urine Microscopic? NO; Appearance Urine Clear (Clear); Bilirubin Urine Negative (Negative); Blood Urine Negative (Negative); Color Urine Yellow (Yellow); Glucose Urine UA Negative (Negative); Ketones Urine Negative (Negative); Leukocyte Esterase Ur Negative LEU/UL (Negative); Nitrate Urine Negative (Negative); Protein Urine Negative (Negative); Specific Grav Ur 1.018 (1.001-1.035)
--- NOTE | 2023-06-19 04:15 | ADMGEN ---
This patient, Mely Moody, was admitted to Medical Room 343-01. Patient/family oriented to hospital policies and general routines including ID bracelet, bed and alarms, visiting hours, pain management, procedures, bathroom and other care routines, personal items, smoking policy, room service/diet, and visiting hours. Information on how to activate the Rapid Response Team has been discussed. Patient/Family are encouraged to report perceived risks to care and to ask questions if they do not understand what they are told or what they should do.
--- NOTE | 2023-06-19 05:05 | PC.NURSE ---
Pain relief offered but refused at this time.
--- NOTE | 2023-06-19 08:53 | PM.IMHP ---
H&P: HPI History of Present Illness Date/Time: 06/19/23 08:53 Chief Complaint: Fall Narrative: This is a 77-year-old female with a past medical history asthma, CKD, AFib/ a flutter on anticoagulation therapy, fibromyalgia, OA history of falls that presented to the ED on 06/19/2023 after having a fall at her home. Patient had tripped over the cord to her he had blanket causing her to fall on the left side of her hip. She denies loss of consciousness or hitting her head. x-ray left hip revealed a comminuted left superior pubic ramus and mildly displaced fracture, inferior pubic ramus mildly displaced fracture and left sacral fracture. CT of the head no acute intracranial process. CT of the cervical spine showing severe multilevel degenerative disc disease, no fracture dislocation. Ortho consulted for acute fracture. Care coordination consulted for placement. Workup in the ED showed mildly elevated white count of 11.6, hemoglobin of 11.2 which is stable from March 2023, mild hyponatremia with sodium of 130 to, and UA without signs of infection. Patient admitted for further treatment of fracture. PT and OT ordered for the patient. [facility] Past Medical History Medical History Atrial flutter with rapid ventricular response echo: normal LV, ef >70%, grade 2 diastolic dysfunction, aneurysmal atrial septum with negative bubble study. FAN/ successful cardioversion now back in flutter. Chronic lower back pain Elevated troponin ETD (eustachian tube dysfunction) Falls frequently History of peptic ulcer Osteopenia after menopause Syncope Vitamin D deficiency Vitamin D2 deficiency Surgical History Surgical History History of breast biopsy History of carpal tunnel surgery History of cholecystectomy History of hand surgery Trigger finger release. History of lumbar laminectomy Status post transposition of nerve Right ulnar nerve transposition. Family History Family History Mother Asthma Family history of cardiovascular disease Family history of kidney disease Family history of malignant neoplasm of cervix, Onset Age: 68 Father Family history of peptic ulcer Family history of malignant neoplasm of stomach Family history of emphysema Sibling Family history of malignant neoplasm of brain, Onset Age: 55 Social History Social History Social History: Surrogate decision maker: Donavon Jean, nephew. Code status: Full code. Smoking status: Former smoker Tobacco type: cigarettes Second hand tobacco smoke exposure: Yes (as child and work place) Alcohol intake: never Substance use: never Substance use type: does not use Do You Feel Safe in your Home?: Yes Lack of Transportation: No Lack of Food: Never True Current Housing: I Have Housing Concerned About Future Housing: No Difficulty Paying Gas/Electric Bills: No Difficulty Paying for Meds: No Currently Unemployed: No Education: High School Diploma/GED Difficulty w/ Childcare or Family Care: No Living arrangements: with family Additional living arrangements comments: The patient lives with her in [place]. He suffers from dementia and she is his primary patient insurance clerk. No children. 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 Gender identity (if verbalized by the patient): Female Spiritual care concerns: No Meds Home Medications and Allergies Home Medications Medication Instructions Recorded Confirmed Type pyridoxine (vitamin B6) 100 mg 100 mg PO DAILY 04/11/19 06/19/23 History tablet Centrum Silver Women 1 cap PO DAILY 08/02/20 06/19/23 History lysine 500 mg tablet (L-Lysine) 500 mg PO DAILY 08/02/20 06/19/23 History po
--- NOTE | 2023-06-19 09:19 | PM.CNOR ---
Assessment and Plan Assessment and plan (1) Fracture of superior pubic ramus: Qualifiers: Encounter type: initial encounter Fracture type: closed Laterality: left Qualified Code(s): S32.512A - Fracture of superior rim of left pubis, initial encounter for closed fracture Code(s): S32.519A - Fracture of superior rim of unspecified pubis, initial encounter for closed fracture Status: Acute Assessment and Plan: 77-year-old woman with fall from standing at home after tripping on electrical cord. Patient previously independent. Lives alone. History of osteopenia. CT scan And radiographs show left-sided pelvis fractures. discussed with patient. Treatment options reviewed. Indicated for non operative treatment. Risks, benefits and alternatives of treatment discussed in detail. Questions answered. Pain control. PT/ OT with weight-bearing as tolerated. Will most likely require several days to mobilize. May require placement after that Prior to returning home. Will follow. (2) Fracture of inferior pubic ramus: Qualifiers: Encounter type: initial encounter Fracture type: closed Laterality: left Qualified Code(s): S32.592A - Other specified fracture of left pubis, initial encounter for closed fracture Code(s): S32.599A - Other specified fracture of unspecified pubis, initial encounter for closed fracture Status: Acute (3) Closed sacral fracture: Qualifiers: Encounter type: initial encounter Zone of sacrum fracture: unspecified portion of sacrum Qualified Code(s): S32.10XA - Unspecified fracture of sacrum, initial encounter for closed fracture Code(s): S32.10XA - Unspecified fracture of sacrum, initial encounter for closed fracture Status: Acute (4) Fall from ground level: Code(s): W18.30XA - Fall on same level, unspecified, initial encounter Status: Acute (5) Osteopenia after menopause: Code(s): M85.80 - Other specified disorders of bone density and structure, unspecified site; Z78.0 - Asymptomatic menopausal state Status: Acute History of Present Illness HPI Consult date: 06/19/23 Requesting physician: Elizabeth Amos PA-C Chief complaint: pelvic fractures, sacral fracture, glf, unable to Narrative: 77-year-old woman who lives at home alone, left foot caught in cords while trying to ambulate. Fall on the left side. Left hip pain. Unable to bear weight. Brought to the emergency room and found to have pelvis fractures. History of previous bilateral hip pain. Otherwise independent ambulator without assistive devices. Denies numbness or tingling. Denies loss of consciousness. Denies neck or back pain. Review of Systems Constitutional: Constitutional: Denies fever(s) Eyes: Eyes: Denies blurry vision ENT: Reports Normal hearing present Cardiovascular: Cardiovascular: Denies chest pain and Denies dyspnea Respiratory: Respiratory: Denies dyspnea and Denies wheezing Gastrointestinal: Gastrointestinal: Denies abdominal pain Genitourinary: Genitourinary: Denies urinary urgency Musculoskeletal: Musculoskeletal: Reports as per HPI and Denies numbness Integumentary/Breasts: Skin/Breast: Denies changing lesions and Denies sores Neurologic: Reports Normal hearing present, Denies behavioral changes, Denies confusion, Denies numbness and Denies convulsions Psychiatric: Psychiatric: Denies behavioral changes, Denies confusion and Denies hallucinations Endocrine: Endocrine: Denies heat intolerance Hematologic/Lymphatic: Hematologic/Lymphatic: Denies easy bleeding Allergic/Immunologic: Allergic/Immunologic: Denies wheezing PMF Past Medical History Medical History (Updated 06/19/23 @ 09:22 by Juan Pablo Baron MD) Atrial flutter with rapid ventricular response echo: normal LV, ef >70%, grade 2 diastolic dysfunction, aneurysmal atrial septum with negative bubble study. FAN/ successful cardioversion now back in
[2023-06-19] MEDS: IBUPROFEN IV 400 MG in SODIUM CHLORIDE 0.9% IV 100 ML 208 MG IVPB (11:13)
[2023-06-19] MEDS: MONTELUKAST SODIUM 10 MG TABLET PO (11:14)
[2023-06-19] MEDS: AMIODARONE HCL 100 MG TABLET PO (11:15)
[2023-06-19] MEDS: METOPROLOL SUCCINATE EXT REL 50 MG TABCR PO (17:38)
[2023-06-19] MEDS: ALPRAZolam (*CRX) 0.5 MG TABLET 1 MG PO (20:27)
[2023-06-19] MEDS: DOCUSATE SODIUM 100 MG CAPSULE 200 MG PO (20:27)
[2023-06-19] MEDS: HYDROcodone/acetaminophen (*CRX) 5-325 MG TABLET 1 TAB PO (20:27)
[2023-06-19] MEDS: AMITRIPTYLINE HCL 25 MG TABLET 50 MG PO (20:27)
[2023-06-20 05:07] VITALS: BP 108/50; PULSE 66; RESP 17; TEMP 36.3; O2SAT 93
[2023-06-20 06:16] LABS: Hematocrit 30.2 % (37.0-47.0); Hemoglobin 9.9 g/dL (12.0-15.0); Mean Corpuscular HGB Conc 32.8 g/dl (32-36); Mean Corpuscular Hemoglobin 30.9 pg (26-34); Mean Corpuscular Volume 94.4 fl (80-100); Mean Platelet Volume 10.9 fl (7.4-10.4); Platelet Count Result 144 k/mm3 (150-375); Red Cell Distribution Width 12.4 % (11.5-14.5); White Blood Count 4.8 K/mm3 (4.5-10.0)
[2023-06-20 06:25] LABS: Anion Gap -1 mmol/L (4-12); Blood Urea Nitrogen 16 mg/dL (7-17); Calcium 8.4 mg/dL (8.4-10.2); Carbon Dioxide 30 mmol/L (22-30); Chloride 99 mmol/L (98-107); Estimated CRCL calculation 39 ml/min; Estimated Glomerular Filt Rate 54; Glucose 96 mg/dL (65-110); Sodium 128 mmol/L (137-145)
[2023-06-20 09:00] VITALS: PULSE 80
[2023-06-20] MEDS: METOPROLOL SUCCINATE EXT REL 50 MG TABCR PO (09:00)
[2023-06-20] MEDS: MORPHINE SULFATE (*CRX) 4 MG/ML INJ IV PUSH ×2 (09:00→12:32)
[2023-06-20] MEDS: polyethylene glycoL 3350 17 GM POWD.PACK PO (09:00)
[2023-06-20 09:01] VITALS: PULSE 80
[2023-06-20] MEDS: AMIODARONE HCL 100 MG TABLET PO (09:01)
[2023-06-20] MEDS: MONTELUKAST SODIUM 10 MG TABLET PO (09:01)
--- NOTE | 2023-06-20 13:12 | PM.IMPN ---
Progress Note: A&P Assessment and Plan (1) Fracture of superior pubic ramus: Qualifiers: Encounter type: initial encounter Fracture type: closed Laterality: left Qualified Code(s): S32.512A - Fracture of superior rim of left pubis, initial encounter for closed fracture Code(s): S32.519A - Fracture of superior rim of unspecified pubis, initial encounter for closed fracture Status: Acute Assessment and Plan: Comminuted left superior pubic ramus and mildly displaced fracture. Orthopedics consulted and appreciate recommendations. CT pelvis with left sacral alar, left superior pubic and inferior pubic ramus fractures. Analgesics as needed. P.r.n. stool softeners PT and OT consulted. Patient will likely need placement. Weight-bearing as tolerated (2) Fracture of inferior pubic ramus: Qualifiers: Encounter type: initial encounter Fracture type: closed Laterality: left Qualified Code(s): S32.592A - Other specified fracture of left pubis, initial encounter for closed fracture Code(s): S32.599A - Other specified fracture of unspecified pubis, initial encounter for closed fracture Status: Acute Assessment and Plan: Inferior pubic ramus mildly displaced fracture. Orthopedics consulted. Analgesics as needed. P.r.n. stool softeners PT and OT consulted. Patient will likely need placement. (3) Closed sacral fracture: Qualifiers: Encounter type: initial encounter Zone of sacrum fracture: unspecified portion of sacrum Qualified Code(s): S32.10XA - Unspecified fracture of sacrum, initial encounter for closed fracture Code(s): S32.10XA - Unspecified fracture of sacrum, initial encounter for closed fracture Status: Acute Assessment and Plan: Left sacral fracture Orthopedics consulted. Analgesics as needed. P.r.n. stool softeners PT and OT consulted. Patient will likely need placement. (4) Fall from ground level: Code(s): W18.30XA - Fall on same level, unspecified, initial encounter Status: Acute Assessment and Plan: Patient with history of frequent falls. PT and OT consult on the patient. Patient ambulates with a cane. (5) Paroxysmal atrial flutter: Code(s): I48.92 - Unspecified atrial flutter Status: Acute Assessment and Plan: Patient with history of a flutter. She is on chronic anticoagulation therapy with Xarelto. Will hold Xarelto until after orthopedic evaluates. (6) Stage 3a chronic kidney disease: Code(s): N18.31 - Chronic kidney disease, stage 3a Status: Acute Assessment and Plan: History of CKD. Review of chart shows patient's creatinine between 0.9-1.1 Patient's creatinine on presentation 1.0. Stable. Continue to monitor (7) Moderate persistent asthma: Qualifiers: Asthma complication type: uncomplicated Qualified Code(s): J45.40 - Moderate persistent asthma, uncomplicated Code(s): J45.40 - Moderate persistent asthma, uncomplicated Status: Acute Assessment and Plan: Continue daily inhalers , Singulair and Flonase. Not in an acute exacerbation. Subjective Date/time seen: 06/20/23 13:12 Interval history: patient still having a lot of left hip pain. Encouraged patient to get up to the chair. Plan for SNF vs [facility]. Exam Narrative: GENERAL: Comfortable, no acute distress HENMT: moist mucous membranes EYES: EOM intact b/l NECK: no lymphadenopathy RESPIRATORY: clear to auscultation, no increased respiratory effort CARDIO: Regular rate and rhythm GI: soft, nontender, bowel sounds present SKIN/EXTREMITIES: Pain with movement and manipulation of left hip; annular rash on left side of abdomen NEURO:answers questions appropriately, A&O x4 Objective Data Vital Signs Vital Signs: Vital Signs - 24 hr 06/19/23 14:16 06/19/23 14
[2023-06-20 15:00] VITALS: BP 107/40; PULSE 83; RESP 18; TEMP 36.2; O2SAT 94
[2023-06-20] MEDS: HYDROcodone/acetaminophen (*CRX) 5-325 MG TABLET 1 TAB PO ×2 (15:31→21:10)
[2023-06-20 20:00] VITALS: PULSE 72; RESP 18; O2SAT 96
[2023-06-20 20:26] VITALS: BP 97/45; PULSE 72; RESP 18; TEMP 36.2; O2SAT 96
[2023-06-20] MEDS: DOCUSATE SODIUM 100 MG CAPSULE 200 MG PO (21:09)
[2023-06-20] MEDS: ALPRAZolam (*CRX) 0.5 MG TABLET 1 MG PO (21:10)
[2023-06-20] MEDS: AMITRIPTYLINE HCL 25 MG TABLET 50 MG PO (21:10)
[2023-06-21] MEDS: MORPHINE SULFATE (*CRX) 2 MG/ML INJ IV PUSH ×2 (03:30→13:17)
[2023-06-21 05:11] VITALS: BP 117/48; PULSE 77; RESP 20; TEMP 36.6; O2SAT 98
[2023-06-21 06:20] LABS: Hematocrit 30.9 % (37.0-47.0); Immature Platelet Fraction Pct 4.5 % (0.9-11.2); Mean Corpuscular HGB Conc 32.4 g/dl (32-36); Mean Corpuscular Hemoglobin 30.6 pg (26-34); Mean Corpuscular Volume 94.5 fl (80-100); Mean Platelet Volume 10.8 fl (7.4-10.4); Platelet Count Result 133 k/mm3 (150-375); Red Blood Count 3.27 M/mm3 (4.2-5.4); Red Cell Distribution Width 12.2 % (11.5-14.5); White Blood Count 5.7 K/mm3 (4.5-10.0)
[2023-06-21 06:26] LABS: Anion Gap 3 mmol/L (4-12); Blood Urea Nitrogen 17 mg/dL (7-17); Calcium 8.6 mg/dL (8.4-10.2); Carbon Dioxide 29 mmol/L (22-30); Chloride 96 mmol/L (98-107); Estimated CRCL calculation 43 ml/min; Estimated Glomerular Filt Rate > 60; Glucose 107 mg/dL (65-110); Potassium 4.2 mmol/L (3.4-5.0); Sodium 128 mmol/L (137-145)
[2023-06-21] MEDS: HYDROcodone/acetaminophen (*CRX) 5-325 MG TABLET 1 TAB PO (08:23)
[2023-06-21 08:57] VITALS: PULSE 76
[2023-06-21] MEDS: polyethylene glycoL 3350 17 GM POWD.PACK PO (08:57)
[2023-06-21] MEDS: METOPROLOL SUCCINATE EXT REL 50 MG TABCR PO (08:57)
[2023-06-21] MEDS: MONTELUKAST SODIUM 10 MG TABLET PO (08:57)
[2023-06-21 08:58] VITALS: PULSE 76
[2023-06-21] MEDS: AMIODARONE HCL 100 MG TABLET PO (08:58)
--- NOTE | 2023-06-21 12:16 | PM.PNORT ---
Progress Note: A&P Assessment and Plan (1) Fracture of inferior pubic ramus: Qualifiers: Encounter type: initial encounter Fracture type: closed Laterality: left Qualified Code(s): S32.592A - Other specified fracture of left pubis, initial encounter for closed fracture Code(s): S32.599A - Other specified fracture of unspecified pubis, initial encounter for closed fracture Status: Acute (2) Fracture of superior pubic ramus: Qualifiers: Encounter type: initial encounter Fracture type: closed Laterality: left Qualified Code(s): S32.512A - Fracture of superior rim of left pubis, initial encounter for closed fracture Code(s): S32.519A - Fracture of superior rim of unspecified pubis, initial encounter for closed fracture Status: Acute (3) Closed sacral fracture: Qualifiers: Encounter type: initial encounter Zone of sacrum fracture: unspecified portion of sacrum Qualified Code(s): S32.10XA - Unspecified fracture of sacrum, initial encounter for closed fracture Code(s): S32.10XA - Unspecified fracture of sacrum, initial encounter for closed fracture Status: Acute Assessment and Plan: Left-sided pelvis fractures. Pain slightly improved. She is tolerating regular diet. Continue to mobilize with therapy. Weight bear as tolerated. Will most likely need placement. Pain control, DVT prophylaxis, Disposition Subjective Subjective Date/Time Seen: 06/21/23 12:16 Principal diagnosis: Left pelvis fractures Interval history: patient complains of left-sided pelvis pain. Better if she is resting. Worse when she tries to move. Denies numbness or tingling. Exam Const: General: No confusion Orientation/consciousness: No confusion Neck: Neck: supple and nontender Extrem: General: capillary refill normal Right upper extremity: normal to inspection Left upper extremity: normal to inspection Right lower extremity: normal to inspection, hip/thigh Details: normal to inspection and normal ROM; no tenderness and no swelling, knee Details: no tenderness and no swelling, ankle Details: normal ROM (Able to flex and extend the ankle) and foot Details: vascular exam Details: dorsalis pedis pulse present and normal capillary refill, tendon exam (Moves all toes) and motor-sensory exam Details: light-touch normal Location: in all toes Left lower extremity: hip/thigh Details: tenderness Location: of the hip Location: laterally and anteriorly, swelling Location: of the hip and abnormal ROM Details: pain with passive ROM (Full motion deferred secondary to fracture) Details: with flexion, with internal rotation and with external rotation, ankle (no calf tenderness) Details: normal ROM (Able to flex/ extend ankle) and foot Details: toes with normal ROM (Moves all toes), vascular exam Details: dorsalis pedis pulse present and normal capillary refill and motor-sensory exam light-touch normal in all toes; no tenderness Psych: Affect: normal affect Objective Data Vital Signs Vital Signs: Vital Signs - 24 hr 06/20/23 15:00 06/20/23 20:26 06/20/23 20:00 Temperature 97.2 F L 97.2 F L Pulse Rate 83 72 72 Respiratory Rate 18 18 18 Blood Pressure 107/40 L 97/45 L Pulse Oximetry 94 96 96 Oxygen Delivery Room Air 06/21/23 05:11 06/21/23 08:57 06/21/23 08:58 Temperature 97.8 F Pulse Rate 77 76 76 Respiratory Rate 20 Blood Pressure 117/48 L Pulse Oximetry 98 Oxygen Delivery Intake/Output Intake/Output: Intake & Output 06/18/23 06/19/23 06/20/23 06/21/23 23:59 23:59 23:59 23:59 Intake Total 804 1500 390 Output Total 1250 1350 500 Balance -446 150 -110 Meds/Results Medications: Active Medications Generic Name Dose Route Start Last Admin Trade Name Freq PRN Reason Stop Dose Admin Acetaminophen 650 mg 06/19/23 09:01 Acetaminophen 325 Mg Tablet PO Q6H PRN Mild Pain (1-3) or Fever Hydrocodone Bitart/Acetaminophen 1
[2023-06-21 14:00] VITALS: BP 106/48; PULSE 80; RESP 18; TEMP 36.6; O2SAT 98
--- NOTE | 2023-06-21 15:40 | P.PNIM_ITS ---
Progress Note: A&P Assessment and Plan (1) Fracture of superior pubic ramus: Qualifiers: Encounter type: initial encounter Fracture type: closed Laterality: left Qualified Code(s): S32.512A - Fracture of superior rim of left pubis, initial encounter for closed fracture Code(s): S32.519A - Fracture of superior rim of unspecified pubis, initial encounter for closed fracture Status: Acute Assessment and Plan: Comminuted left superior pubic ramus and mildly displaced fracture. * Orthopedics consulted and appreciate recommendations. * CT pelvis with left sacral alar, left superior pubic and inferior pubic ramus fractures. * Analgesics as needed. * P.r.n. stool softeners * PT and OT consulted. * Patient will likely need placement. * Weight-bearing as tolerated (2) Fracture of inferior pubic ramus: Qualifiers: Encounter type: initial encounter Fracture type: closed Laterality: left Qualified Code(s): S32.592A - Other specified fracture of left pubis, initial encounter for closed fracture Code(s): S32.599A - Other specified fracture of unspecified pubis, initial encounter for closed fracture Status: Acute Assessment and Plan: Inferior pubic ramus mildly displaced fracture. * Orthopedics consulted. * Analgesics as needed. * P.r.n. stool softeners * PT and OT consulted. * Patient will likely need placement. (3) Closed sacral fracture: Qualifiers: Encounter type: initial encounter Zone of sacrum fracture: unspecified portion of sacrum Qualified Code(s): S32.10XA - Unspecified fracture of sacrum, initial encounter for closed fracture Code(s): S32.10XA - Unspecified fracture of sacrum, initial encounter for closed fracture Status: Acute Assessment and Plan: Left sacral fracture * Orthopedics consulted. * Analgesics as needed. * P.r.n. stool softeners * PT and OT consulted. * Patient will likely need placement. (4) Fall from ground level: Code(s): W18.30XA - Fall on same level, unspecified, initial encounter Status: Acute Assessment and Plan: Patient with history of frequent falls. * PT and OT consult on the patient. * Patient ambulates with a cane. (5) Paroxysmal atrial flutter: Code(s): I48.92 - Unspecified atrial flutter Status: Acute Assessment and Plan: Patient with history of a flutter. * She is on chronic anticoagulation therapy with Xarelto. * Xarelto restarted. (6) Stage 3a chronic kidney disease: Code(s): N18.31 - Chronic kidney disease, stage 3a Status: Acute Assessment and Plan: History of CKD. Review of chart shows patient's creatinine between 0.9-1.1 * Patient's creatinine on presentation 1.0. * Stable. * Continue to monitor (7) Moderate persistent asthma: Qualifiers: Asthma complication type: uncomplicated Qualified Code(s): J45.40 - Moderate persistent asthma, uncomplicated Code(s): J45.40 - Moderate persistent asthma, uncomplicated Status: Acute Assessment and Plan: Continue daily inhalers , Singulair and Flonase. Not in an acute exacerbation. Subjective Date/time seen: 06/21/23 15:40 Interval history: [facility] accepted the patient. Plan to discharge her to [facility] tomorrow. Decreased pain medications to PO PRN Exam Narrative: GENERAL: Comfortable, no acute di
--- NOTE | 2023-06-21 15:40 | PM.IMPN ---
Progress Note: A&P Assessment and Plan (1) Fracture of superior pubic ramus: Qualifiers: Encounter type: initial encounter Fracture type: closed Laterality: left Qualified Code(s): S32.512A - Fracture of superior rim of left pubis, initial encounter for closed fracture Code(s): S32.519A - Fracture of superior rim of unspecified pubis, initial encounter for closed fracture Status: Acute Assessment and Plan: Comminuted left superior pubic ramus and mildly displaced fracture. Orthopedics consulted and appreciate recommendations. CT pelvis with left sacral alar, left superior pubic and inferior pubic ramus fractures. Analgesics as needed. P.r.n. stool softeners PT and OT consulted. Patient will likely need placement. Weight-bearing as tolerated (2) Fracture of inferior pubic ramus: Qualifiers: Encounter type: initial encounter Fracture type: closed Laterality: left Qualified Code(s): S32.592A - Other specified fracture of left pubis, initial encounter for closed fracture Code(s): S32.599A - Other specified fracture of unspecified pubis, initial encounter for closed fracture Status: Acute Assessment and Plan: Inferior pubic ramus mildly displaced fracture. Orthopedics consulted. Analgesics as needed. P.r.n. stool softeners PT and OT consulted. Patient will likely need placement. (3) Closed sacral fracture: Qualifiers: Encounter type: initial encounter Zone of sacrum fracture: unspecified portion of sacrum Qualified Code(s): S32.10XA - Unspecified fracture of sacrum, initial encounter for closed fracture Code(s): S32.10XA - Unspecified fracture of sacrum, initial encounter for closed fracture Status: Acute Assessment and Plan: Left sacral fracture Orthopedics consulted. Analgesics as needed. P.r.n. stool softeners PT and OT consulted. Patient will likely need placement. (4) Fall from ground level: Code(s): W18.30XA - Fall on same level, unspecified, initial encounter Status: Acute Assessment and Plan: Patient with history of frequent falls. PT and OT consult on the patient. Patient ambulates with a cane. (5) Paroxysmal atrial flutter: Code(s): I48.92 - Unspecified atrial flutter Status: Acute Assessment and Plan: Patient with history of a flutter. She is on chronic anticoagulation therapy with Xarelto. Xarelto restarted. (6) Stage 3a chronic kidney disease: Code(s): N18.31 - Chronic kidney disease, stage 3a Status: Acute Assessment and Plan: History of CKD. Review of chart shows patient's creatinine between 0.9-1.1 Patient's creatinine on presentation 1.0. Stable. Continue to monitor (7) Moderate persistent asthma: Qualifiers: Asthma complication type: uncomplicated Qualified Code(s): J45.40 - Moderate persistent asthma, uncomplicated Code(s): J45.40 - Moderate persistent asthma, uncomplicated Status: Acute Assessment and Plan: Continue daily inhalers , Singulair and Flonase. Not in an acute exacerbation. Subjective Date/time seen: 06/21/23 15:40 Interval history: [facility] accepted the patient. Plan to discharge her to [facility] tomorrow. Decreased pain medications to PO PRN Exam Narrative: GENERAL: Comfortable, no acute distress HENMT: moist mucous membranes EYES: EOM intact b/l NECK: no lymphadenopathy RESPIRATORY: clear to auscultation, no increased respiratory effort CARDIO: Regular rate and rhythm GI: soft, nontender, bowel sounds present SKIN/EXTREMITIES: Pain with movement and manipulation of left hip; annular rash on left side of abdomen NEURO:answers questions appropriately, A&O x4 Objective Data Vital Signs Vital Signs: Vital Signs - 24 hr 06/20/23 20:26 06/20/23 20:00 06/21/23 05:11 Temperature 97.2 F L
[2023-06-21] MEDS: RIVAROXABAN 20 MG TABLET PO (17:10)
[2023-06-21 20:00] VITALS: PULSE 90; RESP 18; O2SAT 98
[2023-06-21 20:31] VITALS: BP 118/52; PULSE 90; RESP 18; TEMP 36.5; O2SAT 98
[2023-06-21] MEDS: DOCUSATE SODIUM 100 MG CAPSULE 200 MG PO (21:01)
[2023-06-21] MEDS: AMITRIPTYLINE HCL 25 MG TABLET 50 MG PO (21:01)
[2023-06-21] MEDS: ALPRAZolam (*CRX) 0.5 MG TABLET 1 MG PO (21:01)
[2023-06-21] MEDS: oxyCODONE HCL (*CRX) 5 MG TAB IR PO (21:01)
[2023-06-22] MEDS: oxyCODONE HCL (*CRX) 5 MG TAB IR PO ×3 (01:24→14:55)
[2023-06-22 06:13] VITALS: BP 126/45; PULSE 77; RESP 18; TEMP 36.6; O2SAT 100
[2023-06-22 08:28] VITALS: PULSE 78
[2023-06-22] MEDS: METOPROLOL SUCCINATE EXT REL 50 MG TABCR PO (08:28)
[2023-06-22] MEDS: AMIODARONE HCL 100 MG TABLET PO (08:28)
[2023-06-22] MEDS: polyethylene glycoL 3350 17 GM POWD.PACK PO (08:28)
[2023-06-22] MEDS: MONTELUKAST SODIUM 10 MG TABLET PO (08:28)
--- NOTE | 2023-06-22 13:11 | PM.DS ---
DS: Admitting Diagnosis Discharge Date 06/22/23 Admitting Diagnosis fall, pubic fracture DS: Discharge Diagnosis Discharge Diagnosis (1) Fracture of superior pubic ramus: Qualifiers: Encounter type: initial encounter Fracture type: closed Laterality: left Qualified Code(s): S32.512A - Fracture of superior rim of left pubis, initial encounter for closed fracture Code(s): S32.519A - Fracture of superior rim of unspecified pubis, initial encounter for closed fracture Status: Acute (2) Fracture of inferior pubic ramus: Qualifiers: Encounter type: initial encounter Fracture type: closed Laterality: left Qualified Code(s): S32.592A - Other specified fracture of left pubis, initial encounter for closed fracture Code(s): S32.599A - Other specified fracture of unspecified pubis, initial encounter for closed fracture Status: Acute (3) Closed sacral fracture: Qualifiers: Encounter type: initial encounter Zone of sacrum fracture: unspecified portion of sacrum Qualified Code(s): S32.10XA - Unspecified fracture of sacrum, initial encounter for closed fracture Code(s): S32.10XA - Unspecified fracture of sacrum, initial encounter for closed fracture Status: Acute (4) Fall from ground level: Code(s): W18.30XA - Fall on same level, unspecified, initial encounter Status: Acute (5) Paroxysmal atrial flutter: Code(s): I48.92 - Unspecified atrial flutter Status: Acute (6) Stage 3a chronic kidney disease: Code(s): N18.31 - Chronic kidney disease, stage 3a Status: Acute (7) Moderate persistent asthma: Qualifiers: Asthma complication type: uncomplicated Qualified Code(s): J45.40 - Moderate persistent asthma, uncomplicated Code(s): J45.40 - Moderate persistent asthma, uncomplicated Status: Acute DS: Summary Hospital Course Hospital Course: This is a 77-year-old female with a past medical history asthma, CKD, AFib/ a flutter on anticoagulation therapy, fibromyalgia, OA history of falls that presented to the ED on 06/19/2023 after having a fall at her home.? Patient had tripped over the cord to her he had blanket causing her to fall on the left side of her hip.? She denies loss of consciousness or hitting her head.? x-ray left hip revealed a comminuted left superior? pubic ramus and mildly displaced fracture, inferior pubic ramus mildly displaced fracture and left sacral fracture.? CT of the head no acute intracranial process.? CT of the cervical spine showing severe multilevel degenerative disc disease, no fracture dislocation.? Ortho consulted for acute fracture.? Care coordination consulted for placement.? Workup in the ED showed mildly elevated white count of 11.6, hemoglobin of 11.2 which is stable from March 2023. UA without signs of infection.PT and OT consulted on the patient. Patient kept here for pain control. Orthopedics consulted and advised?conservative management. She was accepted into [facility]. Will discharge to [facility] on 06/22/23. Time Spent with Patient Time attestation: Total time spent providing and/or coordinating discharge services: Exam Narrative: GENERAL: Comfortable, no acute distress HENMT: moist mucous membranes EYES: EOM intact b/l NECK: no lymphadenopathy RESPIRATORY: clear to auscultation, no increased respiratory effort CARDIO: Regular rate and rhythm GI: soft, nontender, bowel sounds present SKIN/EXTREMITIES: Pain with movement and manipulation of left hip; annular rash on left side of abdomen NEURO:answers questions appropriately, A&O x4 Discharge Plan Discharge Attending physician on discharge: Hilario Logan Consulting providers: Juan Pablo Baron; Elizabeth Amos Discharging Clinician: Rachael Rodriguez Patient Disposition: Inpatient Rehab Facility Activity: may shower, no driving and follow weight bearing status Diet: regular Discharge Instructions: Ortho
[2023-06-22 15:02] VITALS: BP 94/74; PULSE 87; RESP 16; TEMP 36.7; O2SAT 100
== END 2023-06-22 15:27 | DRG 552 ==
LOC: ANHED 06-19 03:02 → ANH3MED 06-19 03:42
PROVIDERS: Internal Medicine Critical Care Medicine; Admitting Provider Internal Medicine; Emergency Provider Physician Assistant; PCP Family Medicine; Visit Provider Hospitalist
DX: S32.19XA Other fracture of sacrum, initial encounter for closed fracture (principal); S32.592A Other specified fracture of left pubis, initial encounter for closed fracture; I48.92 Unspecified atrial flutter; N18.31 Chronic kidney disease, stage 3a; J45.40 Moderate persistent asthma, uncomplicated; M85.80 Other specified disorders of bone density and structure, unspecified site; M79.7 Fibromyalgia; M54.59 Other low back pain; G89.29 Other chronic pain; E55.9 Vitamin D deficiency, unspecified; W18.09XA Striking against other object with subsequent fall, initial encounter; Z79.01 Long term (current) use of anticoagulants; Z91.81 History of falling
CPT/HCPCS: 36415; 70450; 72125; 72192; 73502; 80048; 80053; 81003; 85025; 85027; 85055; 85610; 85730; 93005; 96365; 96375; 96376; 97110; 97162; 97165; 97530; 97535; 99285; A9270; G0378; J1741; J2270; J2405

== ENCOUNTER 2023-06-29 18:14 | Emergency (ER) | payer OTHER, MEDICARE, SELFPAY ==
--- NOTE | ~2023-06-29 | XR_ITS ---
XR hip LT 2V w AP pelvis 06/29/2023 18:54 Indication: Worsening pain of the left hip Procedure: AP pelvis and 2 views left hip Comparison: 06/18/2023 and 06/19/2023 Findings: Stable alignment of comminuted displaced fracture left superior pubic ramus. No significant change to minimally displaced left inferior pubic ramus fracture. No acute femoral fracture. Left hi p in anatomic alignment. Impression: 1: Stable appearance to left superior and inferior pubic rami fractures allowing for differences of t [place]. Reviewed, dictated and finalized at location A. Impression: 1: Stable appearance to left superior and inferior pubic rami fractures allowin g for differences of technique.
[2023-06-29 18:12] VITALS: BP 134/94; PULSE 91; RESP 18; TEMP 36.7; O2SAT 100
--- NOTE | 2023-06-29 19:33 | ED.GENADULT ---
HPI - General Adult General Chief complaint: Extremity Injury, Lower Stated complaint: pelvic pain Time Seen by Provider: 06/29/23 19:15 History of Present Illness HPI narrative: Patient is a 77-year-old female who presents emergency department with chief complaint of needs repeat pelvic x-rays. The patient was recently admitted for pelvic fracture and was admitted to [facility] the patient states that she is starting to feel more activity and had a little bit more discomfort in her pelvis they did x-ray and recommended sending the patient over to the ER for repeat x-rays in comparison films. The patient states that she does not feel as though there is any fracture but wanted checked out. Related Data Home Medications Medication Instructions Recorded Confirmed pyridoxine (vitamin B6) 100 mg 100 mg PO DAILY 04/11/19 06/22/23 tablet Centrum Silver Women 1 cap PO DAILY 08/02/20 06/22/23 lysine 500 mg tablet (L-Lysine) 500 mg PO DAILY 08/02/20 06/22/23 polyethylene glycol 3350 17 gram 17 g PO DAILY 08/02/20 06/22/23 oral powder packet (Miralax) vit C,E,zinc,copper-givxx6r 250 1 cap PO DAILY 08/02/20 06/22/23 mg-lutein 5 mg-zeaxanthin 1 mg capsule (Ocuvite Adult 50 Plus) calcium carbonate 500 mg calcium 600 mg PO BID 11/20/21 06/22/23 (1,250 mg) tablet docusate sodium 100 mg capsule 200 mg PO HS 11/20/21 06/22/23 (Colace) fluticasone propionate 50 1 spray intranasal DAILY PRN Runny 11/20/21 06/22/23 mcg/actuation nasal Nose spray,suspension metoprolol succinate 50 mg 50 mg PO DAILY 11/20/21 06/22/23 tablet,extended release 24 hr olopatadine 0.2 % eye drops 1 drp EACH EYE DAILY PRN ITCHY EYES 11/20/21 06/22/23 vitamin E 400 unit tablet 400 unit PO EVERY OTHER DAY 11/20/21 06/22/23 ergocalciferol (vitamin D2) 1,250 50,000 unit PO MONTHLY 04/15/22 06/22/23 mcg (50,000 unit) capsule amiodarone 200 mg tablet 100 mg PO QAM 12/02/22 06/22/23 acetaminophen 500 mg tablet 500 mg PO Q6H PRN Pain 04/07/23 06/22/23 (Tylenol Extra Strength) biotin 10,000 mcg capsule 10,000 mcg PO DAILY 05/18/23 06/22/23 albuterol sulfate 90 mcg/actuation 1 inh inhalation BID PRN Shortness 06/19/23 06/22/23 aerosol inhaler (ProAir HFA) Of Breath Or Wheezing fluticasone 250 mcg-salmeterol 50 1 inh inhalation BID 06/19/23 06/22/23 mcg/dose blistr powdr for inhalation (Advair Diskus) simethicone 80 mg chewable tablet 80 mg PO DAILY PRN abdominal 06/19/23 06/22/23 discomfort hydrocodone 5 mg-acetaminophen 325 1 - 2 tablet PO Q6H PRN Pain 06/22/23 06/22/23 mg tablet (Scale Score 4-10) Allergies Allergy/AdvReac Type Severity Reaction Status Date / Time hydrochlorothiazide [Dyazide] Allergy Unknown Unknown Verified 05/25/23 09:33 aspirin AdvReac Intermediate Abdominal Verified 05/25/23 09:33 Pain codeine AdvReac Intermediate Abdominal Verified 05/25/23 09:33 Pain pregabalin [Lyrica] AdvReac Unknown Anemia Verified 05/25/23 09:33 triamterene AdvReac Unknown Unknown Verified 05/25/23 09:33 Review of Systems Review of Systems: A 10 system review of systems was completed on the patient and is negative except for what is stated in the HPI. Nursing and ancillary documentation was reviewed. [facility] Past Medical History Medical History Atrial flutter with rapid ventricular response echo: normal LV, ef >70%, grade 2 diastolic dysfunction, aneurysmal atrial septum with negative bubble study. FAN/ successful cardioversion now back in flutter. Chronic lower back pain Dysphonia Elevated troponin ETD (eustachian tube dysfunction) Falls frequently History of peptic ulcer Osteopenia after menopause Syncope Vitamin D deficiency Vitamin D2 deficiency Surgical History Surgical History History of breast biopsy History of carpal tunnel surgery History of cholecystectomy History of hand surgery
[2023-06-29 20:15] VITALS: BP 134/57; PULSE 80; RESP 14; O2SAT 97
[2023-06-29 21:05] VITALS: BP 138/64; PULSE 83; RESP 13; O2SAT 97
== END 2023-06-29 21:05 ==
PROVIDERS: Emergency Provider Emergency Medicine; PCP Family Medicine
DX: R10.2 Pelvic and perineal pain (principal); S32.592D Other specified fracture of left pubis, subsequent encounter for fracture with routine healing; I48.92 Unspecified atrial flutter; E53.8 Deficiency of other specified B group vitamins; M85.80 Other specified disorders of bone density and structure, unspecified site; Z87.11 Personal history of peptic ulcer disease; Z90.49 Acquired absence of other specified parts of digestive tract; Z77.22 Contact with and (suspected) exposure to environmental tobacco smoke (acute) (chronic); Z79.01 Long term (current) use of anticoagulants; X58.XXXD Exposure to other specified factors, subsequent encounter
CPT/HCPCS: 73502; 99283

== ENCOUNTER 2023-08-17 09:37 | Outpatient (CLI) | payer MEDICARE, SELFPAY ==
[2023-08-17 11:13] LABS: Basophils Absolute Auto 0.1 K/mm3 (0.0-0.1); Basophils Percent Auto 1.9 % (0.2-1.2); Eosinophils Absolute Auto 0.1 K/mm3 (0-0.3); Eosinophils Percent Auto 1.7 % (0-4.4); Hematocrit 35.1 % (37.0-47.0); Immature Granulocyte Absolute 0.01 K/mm3 (0.00-0.031); Immature Granulocyte Percent A 0.2 % (0-0.5); Lymphocytes Absolute Auto 1.62 K/mm3 (0.9-3.2); Mean Corpuscular HGB Conc 31.3 g/dl (32-36); Mean Corpuscular Hemoglobin 30.3 pg (26-34); Mean Corpuscular Volume 96.7 fl (80-100); Mean Platelet Volume 11.2 fl (7.4-10.4); Monocytes Absolute Auto 0.6 K/mm3 (0.1-0.6); Monocytes Percent Auto 12.4 % (2.6-8.5); Neutrophils Absolute Auto 2.4 K/mm3 (1.3-6.7); Neutrophils Percent Auto 49.8 % (45.5-73.1); Platelet Count Result 221 k/mm3 (150-375); Red Blood Count 3.63 M/mm3 (4.2-5.4); Red Cell Distribution Width 13.2 % (11.5-14.5); White Blood Count 4.8 K/mm3 (4.5-10.0)
== END 2023-08-17 09:38 | disposition home or self-care (01) ==
LOC: ANHGOSHLAB 09:39
PROVIDERS: Family Medicine; PCP Family Medicine; Visit Provider Family Medicine
DX: D64.9 Anemia, unspecified (principal); E05.90 Thyrotoxicosis, unspecified without thyrotoxic crisis or storm
CPT/HCPCS: 36415; 84443; 85025

== ENCOUNTER 2023-09-09 09:21 | Outpatient (CLI) | payer MEDICARE, SELFPAY | END 2023-09-09 09:22 | disposition home or self-care (01) | PROVIDERS: PCP Family Medicine; Visit Provider Family Medicine | DX: E05.90 Thyrotoxicosis, unspecified without thyrotoxic crisis or storm (principal) | CPT/HCPCS: 36415; 84443 ==

== ENCOUNTER 2024-05-16 11:36 | Outpatient (CLI) | payer MEDICARE, SELFPAY ==
--- OUTSIDE RECORDS SUMMARY | 2024-05-16 13:44 | XMS_ITS | Referral Summary ---
Author Organization [facility] [address] [facility] [address] [place] [address] Care Team Providers Care Sales Support Specialist Name Role Phone Marry Malin MD Primary Care Provider + Encounters Date Type Department Care Team Description 04/11/2024 11:00 AM WIND ENERGY TECHNICIAN Office Visit [facility] Medical Group Cardiology [address] [place] [address] Kanwal Moore NP Paroxysmal atrial flutter (CMS/HCC) (HCC) (Primary Dx); cigar head perforator 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; Chronic anticoagulation from Last 3 Months Allergies Active Allergy Reactions Criticality Noted Date Comments Aspirin Stomach upset Low 08/30/2020 Codeine Stomach upset Low 11/07/2020 Iron Stomach upset Low 08/30/2020 Medications montelukast (SINGULAIR) 10 mg tablet Take 1 tablet (10 mg total) by mouth daily 06/18/19 21 Active ALPRAZolam (XANAX) 0.5 mg tablet Take 1 tablet (0.5 mg total) by mouth 2 (two) times a day 07/09/19 21 Active ergocalciferol (VITAMIN D) 50,000 unit capsule TAKE 1 CAPSULE BY MOUTH ONCE EVERY MONTH 05/25/19 21 Active polyethylene glycol (MIRALAX) 17 gram packet Take 1 packet (17 g total) by mouth daily Active docusate sodium (COLACE) 100 mg capsule Take 1 capsule (100 mg total) by mouth 2 (two) times a day Active vitamin b complex tablet Take 1 tablet by mouth daily Active vitamin E (AQUASOL E) 400 unit capsule 1 capsule (400 Units total) every other day Active lysine 500 mg tablet Take 1 tablet (500 mg total) by mouth daily Active calcium carbonate (CALCIUM 500 ORAL) Take 600 mg by mouth 2 (two) times a day after breakfast and dinner Active simethicone (GAS-X ORAL) Take by mouth as needed Active be-lz-AQ-vit Z-uamtu-jbpy-z eax 200-15-150 mcg tablet Take by mouth Activ e multivit-blasting clay miner sk-wdas-dfvzjz tablet Take by mouth Active acetaminophen (TYLENOL) 325 mg tablet Take 500 mg by mouth every 6 (six) hours as needed Active guaiFENesin ER (MUCINEX) 600 mg 12 hr tablet Take 2 tablets (1,200 mg total) by mouth as needed Active olopatadine (PATADAY) 0.2 % ophthalmic solution Administer 1 drop into both eyes daily Active FLUTICASONE PROPIONATE NASL Administer 2 sprays into affected nostril(s) daily as needed 04/28/19 22 Active Ferrocite 324 mg (106 mg iron) tablet Take 1 tablet by mouth daily 09/25/19 22 Active omeprazole (PriLOSEC) 40 mg capsule Take 1 capsule (40 mg total) by mouth daily 04/03/19 23 Active fluticasone furoate-vilant Jamari (BREO ELLIPTA) 200-25 mcg/dose diskus inhaler 08/15/19 24 Active rivaroxaban (XARELTO) 20 mg tablet Take 1 tablet (20 mg total) by mouth daily with dinner 90 tablet 3 10/12/19 24 Active amitriptyline (ELAVIL) 50 mg tablet Take 1 tablet (50 mg total) by mouth nightly at bedtime 01/24/20 24 Active metoprolol XL (TOPROL-XL) 50 mg extended release tabletIndicati ons:Paroxysmal atrial flutter (CMS/HCC) (HCC) TAKE 1 TABLET(50 MG) BY MOUTH EVERY MORNING 90 tablet 3 04/17/19 25 Active metoprolol XL (TOPROL-XL) 50 mg extended release tabletIndicati ons:Paroxysmal atrial flutter (CMS/HCC) (HCC) TAKE 1 TABLET(50 MG) BY MOUTH EVERY MORNING 90 tablet 3 04/26/19 24 025 Discontinued Active Problems Problem Noted Date Diagnosed Date cigar head perforator 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 09/11/2022 Atrial flutter (CMS/HCC) 07/10/2022 Typical atrial flutter (CMS/HCC) 06/05/2022 Overview (06/05/2022): Added automatically from request for surgery [id number] PVC's (premature ventricular contractions) 10/08 Dyspnea on exertion 10/08/2021 Paroxysmal tachycardia, unspecified (CMS/HCC) (H CC) 10/08/2021 Chronic anticoagulation 10/08/2021 Paroxysmal atrial flutter (CMS/HCC) 10/08/2021 Social History Tobacco Use Types Packs/Day Years Used Date Smoking Tobacco: Never Smokeless Tobacco: Never Tobacco Cessation:Counseling Given: Not Answered AUDIT-C Answer Date Recorded Frequency of Alcohol Consumption Not on file 07/10/2022 Q2: How many drinks containi ng alcohol do you have on a typical day when you are drinking? Patient does not drink Frequency of Binge Drinking Not on file 06/21 Personal Safety Answer Date Recorded Have you ever been in or are you currently in a harmful physical or emotional relationship or is someone making you feel afraid or unsafe? Denies 07/10/2022 Comments No Sex and Gender Information Value Date Recorded Sex Assigned at Not on file Legal Sex Female 3:02 AM WIND ENERGY TECHNICIAN Gender Identity Female 08/30/2020 6:13 AM CDT Sexual Orientation Straight 08/30/2020 6: 13 AM CDT Last Filed Vital Signs Vital Sign Reading Time Taken Comments Blood Pressure 148/72 04/11/2024 10:55 AM WIND ENERGY TECHNICIAN Pulse 82 04/11/2024 10:55 AM WIND ENERGY TECHNICIAN Temperature 36.3 C (97.3 F) 07/10/2022 11:15 AM CDT Respiratory Rate 16 06/03/2023 9:23 AM CDT Oxygen Saturation 96% 04/11/2024 10:55 AM WIND ENERGY TECHNICIAN Inhaled Oxygen Concentration - - Weight 66.2 kg (146 lb) 04/11/2024 10:55 AM WIND ENERGY TECHNICIAN Height 160 cm (5' 3 ) 04/11/2024 10:55 AM WIND ENERGY TECHNICIAN Body Mass Index 25.86 04/11/2024 10:55 AM WIND ENERGY TECHNICIAN Plan of Treatment Not on file Medical Devices Implanted Type Area Inspector Health Care Facilities Device Identifier Shelf Expiration Date Model / Serial / Lot [employer] Vascade Mvp 6-12fr Venous Closure [id number] - [id number] Implanted:Qty : 1 on 07/10/2022 by Cole Price MD at [facility] Collagen Right: Femoral Vein [employer] 03/05/2024 800-612C- 10U / / [id number] [employer] Vascade Mvp 6-12fr Venous Closure [id number] - [id number] Implanted:Qty : 1 on 07/10/2022 by Cole Price MD at [facility] Collagen Right: Femoral Vein [employer] 04/08/2024 800-612C- 10U / / [id number] [id number] [employer] Vascade Mvp 6-12fr Venous Closure [id number] - [id number] Implanted:Qty : 1 on 07/10/2022 by Cole Price MD at [facility] Collagen Right: Femoral Vein [employer] 04/08/2024 800-612C- 10U / / [id number] [id number] Insurance MEDICARE [facility] MEDICARE [facility] Care Teams Sales Support Specialist Relationship Specialty Start Date End Date Marry Malin MD PCP - General Family Medicine 04/15/22
--- OUTSIDE RECORDS SUMMARY | 2024-05-16 13:44 | XMS_ITS | Clinical Summary ---
Author Organization [facility] [address] Address [address] [place] [address] Care Team Providers Care Splicing Machine Operator Automatic Name Role Phone Marry Malin MD Primary Care Provider + Allergies Active Allergy Reactions Criticality Noted Date [...] ORAL) Take by mouth as needed Active fm-gg-JH-vit C-pmlet-ylvd-z eax 200-15-150 mcg tablet Take by mouth Activ e multivit-test examiner nb-hfha-pdmuwo tablet Take by mouth Active acetaminophen (TYLENOL) [...] Active Problems Problem Noted Date Diagnosed Date correction 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 09/11/2022 Atrial flutter (CMS/HCC) 07/10/2022 Typical atrial flutter (CMS/HCC) 06/05/2022 Overview (06/05/2022): Added automatically from request for surgery [id number] PVC's (premature ventricular contractions) 10/08 Dyspnea on exertion 10/08/2021 Paroxysmal tachycardia, unspecified (CMS/HCC) (H CC) 10/08/2021 Chronic anticoagulation 10/08/2021 Paroxysmal atrial flutter (CMS/HCC) 10/08/2021 Encounters Date Type Department Care Team Description 04/11/2024 11:00 AM PERSONNEL TRAINING OFFICER Office Visit [facility] Medical Group Cardiology [address] [place] [address] Kanwal Moore NP Paroxysmal atrial flutter (CMS/HCC) (HCC) (Primary Dx); correction 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; Chronic anticoagulation from Last 3 Months Surgical History Surgery Date Site/Laterality Comments CHOLECYSTECTOMY BACK SURGERY APPENDECTOMY CARPAL TUNNEL RELEASE CATARACT EXTRACTION 2016 - 2017 SPINE SURGERY 03/22/1993 - 03/21/1994 Medical History Medical History Date Comments Fibromyalgia Seasonal allergies Asthma Atrial flutter (CMS/HCC) (HCC) Rapid heart rate Cardiac rhythm disturbance Sinusitis Anemia Acid indigestion Gallstones Hypertension Bilateral cataracts GERD (gastroesophageal reflux disease) Anxiety Osteoporosis Peptic ulceration Motion sickness Arthritis Chronic bronchitis (HCC) Heart disease Family History Medical History Relation Name Comments Blue Baby Brother 1 aspiration pneumonitis Brother 1 Cancer Brother 2 Thomas Cancer Brother 3 Floyd Diabetes Brother 3 Floyd Alcohol abuse Father Edvin Emphysema Father Edvin pulmonary congestion listed on certificate Fathe r Edvin Asthma Mother Julianna Cancer Mother Julianna Kidney failure Mother Julianna Peripheral vascular disease Mother Julianna Relation Name Status Comments Brother 1 (Age 28 days ) Brother 2 Thomas Brother 3 Floyd Father Edvin (Age 54) Mother Julianna (Age 67) Sister Alive Social History Tobacco Use Types Packs/Day Years [...] on file Legal Sex Female 3:02 AM PERSONNEL TRAINING OFFICER Gender Identity Female 08/30/2020 6:13 AM CDT Sexual Orientation Straight 08/30/2020 6: 13 AM CDT Obstetrics History Last Filed Vital Signs Vital Sign Reading Time Taken Comments Blood Pressure 148/72 04/11/2024 10:55 AM PERSONNEL TRAINING OFFICER Pulse 82 04/11/2024 10:55 AM PERSONNEL TRAINING OFFICER Temperature 36.3 C (97.3 F) 07/10/2022 11:15 AM CDT Respiratory Rate 16 06/03/2023 9:23 AM CDT Oxygen Saturation 96% 04/11/2024 10:55 AM PERSONNEL TRAINING OFFICER Inhaled Oxygen Concentration - - Weight 66.2 kg (146 lb) 04/11/2024 10:55 AM PERSONNEL TRAINING OFFICER Height 160 cm (5' 3 ) 04/11/2024 10:55 AM PERSONNEL TRAINING OFFICER Body Mass Index 25.86 04/11/2024 10:55 AM PERSONNEL TRAINING OFFICER Plan of Treatment Health Maintenance Due Date Last Done Comments Depression Screening 1945 Hepatitis C Screening 1945 Osteoporosis Screening-Bone Density Scan 1945 DTaP/Tdap/Td Vaccine (1 - Tdap) 07/30/1958 Hepatitis B Screening 07/30/1965 Pneumococcal vaccine 65+ (1 of 1 - PCV) 07/30/2012 Well Visit 65+ 07/30/2012 Fall Risk Assessment 07/11/2023 07/10/2022 Influenza Vaccine (#1) 2023 0, 11/16/2018, 12/21/2017 Zoster Vaccine Completed 08/02/2018, 05/25/2018 Medical Devices Implanted Type Area Policy Specialist Device Identifier Shelf Expiration Date Model / Serial / Lot [employer] Vascade Mvp 6-12fr Venous Closure [id number] - [id number] Implanted:Qty : 1 on 07/10/2022 by Cole Price MD at [facility] Right: Femoral Vein [employer] 03/05/2024 800-612C- 10U / / [id number] [employer] Vascade Mvp 6-12fr Venous Closure [id number] - [id number] Implanted:Qty : 1 on 07/10/2022 by Cole Price MD at [facility] Collagen Right: Femoral Vein [employer] 04/08/2024 800-612C- 10U / / [id number] [id number] [employer] Vascade Mvp 6-12fr Venous Closure [id number] - [id number] Implanted:Qty : 1 on 07/10/2022 by Cole Price MD at [facility] Collagen Right: Femoral Vein [employer] 04/08/2024 800-612C- 10U / / [id number] 31C Insurance MEDICARE [facility] MEDICARE [facility] Care Teams Splicing Machine Operator Automatic Relationship Specialty Start Date End Date Marry Malin MD PCP - General Family Medicine 04/15/22
[2024-05-16 21:32] LABS: Iron 91 ug/dL (37-170)
[2024-05-16 21:42] LABS: Percent Iron Saturation 30 % (20-50)
== END 2024-05-16 11:37 | disposition home or self-care (01) ==
LOC: ANHGOSHLAB 11:37
PROVIDERS: PCP Family Medicine; Visit Provider Student in an Organized Health Care Education/Training Program
DX: R53.83 Other fatigue (principal); D63.8 Anemia in other chronic diseases classified elsewhere
CPT/HCPCS: 36415; 82728; 83540; 83550

== ENCOUNTER 2024-10-20 09:09 | Emergency (ER) | payer MEDICARE, SELFPAY ==
--- NOTE | ~2024-10-20 | XR_ITS ---
HISTORY: pain/bruising dist Lt tib/fib; hit on bed frame 2 wks ago COMPARISON: None TECHNIQUE: 2 views of the left tibia and fibula were performed FINDINGS: No acute or subacute fracture. Medial tibiofemoral joint space narrowing is present, incompletely evaluated. Remaining joint spaces are preserved and alignment is maintained. Soft tissues are unremarkable without radiopaque foreign body or significant calcification. Age-appropriate mineralization. IMPRESSION: No acute fracture or dislocation within the left tibia and fibula, as detailed above. Reviewed, dictated and finalized at location A.
[2024-10-20 09:28] VITALS: BP 149/67; PULSE 70; RESP 16; TEMP 36.1; O2SAT 100
--- NOTE | 2024-10-20 09:30 | ED_ITS ---
HPI - Extremity Injury (Lower) General Chief Complaint: Extremity Injury, Lower Stated Complaint: Lt olivia injury Time Seen by Provider: 10/20/24 09:31 Source: patient and RN notes reviewed Mode of arrival: ambulatory Limitations: no limitations History of Present Illness HPI Narrative: 79-year-old female presents concern for left lower leg injury. She reports 2 weeks ago she hit the front of her leg on bed frame. She reports she had a large swollen discolored area on the front of her leg, she has used elevation. She reports recently the pain became worse and bruising spread down the leg and into the ankle. She denies any new injury or trauma. She reports the front of the leg has slight redness and warmth. She denies decreased strength, sensation, range of motion. She uses a cane at baseline. Reports pain worsens with weight-bearing. MD complaint: leg injury Related Data Home Medications ?Medication ?Instructions ?Recorded ?Confirmed ?Last Taken ?Type pyridoxine (vitamin B6) 100 mg 100 mg PO DAILY 04/11/19 05/16/24 05/12/22 09:00 History tablet Centrum Silver Women 1 cap PO DAILY 08/02/20 05/16/24 05/12/22 09:00 History polyethylene glycol 3350 17 gram 17 g PO DAILY 08/02/20 02/02/24 05/12/22 09:00 History oral powder packet (Miralax) vit C,E,copper,zinc-mfhau0p 250 1 cap PO DAILY 08/02/20 05/16/24 05/12/22 09:00 History mg-lutein 5 mg-zeaxanthin 1 mg capsule (Ocuvite Adult 50 Plus) fluticasone propionate 50 1 spray intranasal DAILY PRN Runny 11/20/21 05/16/24 1 Month Ago History mcg/actuation nasal Nose ~03/15/22 spray,suspension metoprolol succinate 50 mg 50 mg PO DAILY 11/20/21 05/16/24 06/22/23 08:28 History tablet,extended release 24 hr amiodarone 200 mg tablet 100 mg PO QAM 12/02/22 05/16/24 06/22/23 08:28 History albuterol sulfate 90 mcg/actuation 1 inh inhalation BID PRN Shortness 06/19/23 05/16/24 Unknown History aerosol inhaler (ProAir HFA) Of Breath Or Wheezing simethicone 80 mg chewable tablet 80 mg PO DAILY PRN abdominal 06/19/23 05/16/24 Unknown History discomfort acetaminophen 500 mg capsule 500 mg PO Q6H PRN 05/16/24 05/16/24 Unknown History lysine 500 mg tablet 500 mg PO DAILY 05/16/24 05/16/24 Unknown History Allergies Allergy/AdvReac Type Severity Reaction Status Date / Time hydrochlorothiazide (Dyazide) Allergy Unknown Unknown Verified 10/20/24 09:32 aspirin AdvReac Intermediate Abdominal Verified 10/20/24 09:32 Pain codeine AdvReac Intermediate Abdominal Verified 10/20/24 09:32 Pain pregabalin (Lyrica) AdvReac Unknown Anemia Verified 10/20/24 09:32 triamterene AdvReac Unknown Unknown Verified 10/20/24 09:32 Review of Systems Review of Systems: CONSTITUTIONAL: Denies malaise, chills, sweats, or fever. SKIN: Denies rash or itching, open skin, laceration, abrasion. Reports redness, warmth, swelling and bruising. MUSCULOSKELETAL: Reports left lower leg pain NEUROLOGIC: Denies numbness, weakness All systems reviewed & are unremarkable except as noted in HPI and below PMFSH Past Medical History Medical History Sacral fracture Pubic ramus fracture Anemia Dysphonia Fracture of left superior pubic ramus Fracture of left inferior pubic ramus CKD (chronic kidney disease) Atrial flutter Osteopenia after menopause Closed sacral fracture Fall from ground level Vitamin D2 deficiency Chronic lower back pain Falls frequently Erythema multiforme Positive Romberg test Asthma Acute bacterial bronchitis Acute bacterial sinusitis Chronic laryngitis Hoarseness Contusion of right lower leg Osteopenia ETD (eustachian tube dysfunction) Syncope Atrial flutter with rapid ventricular response echo: normal LV, ef >70%, grade 2 diastolic dysfunction, aneurysmal atrial septum with negative bubble study. FAN/ successful cardioversion now back in flutter. History of peptic ulcer Vitamin D deficiency Elevated troponin Surgical History Surgical History History of lumbar laminectomy History of hand surgery Trigger finger release. Status post transposition of nerve Right ulnar nerve transposition. History of cholecystectomy History of breast biopsy History of carpal tunnel surgery Family History Family History Mother Asthma Family history of cardiovascular disease Family history of kidney disease Family history of malignant neoplasm of cervix, Onset Age: 68 Father Family history of peptic ulcer Family history of malignant neoplasm of stomach Family history of emphysema Sibling Family history of malignant neoplasm of brain, Onset Age: 55 Social History Social History Social History: Surrogate decision maker: Donavon Kurtzjoann nephew. Code status: Full code. Caffeine-caf.free soda Smoking status: Never smoker Second hand tobacco smoke exposure: Yes (as child and work place) Alcohol intake: never Substance use: never Substance use type: does not use Do You Feel Safe in your Home?: Yes Lack of Transportation: No Lack of Food: Never True Current Housing: I Have Housing Concerned About Future Housing: No Difficulty Paying Gas/Electric Bills: No Difficulty Paying for Meds: No Currently Unemployed: No Education: High School Diploma/GED Difficulty w/ Childcare or Family Care: No Living arrangements: with family Additional living arrangements comments: The patient lives with her in [place]. He suffers from dementia and she is his primary instructor substitute cosmetology. No children. 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 Gender identity (if verbalized by the patient): Female Spiritual care concerns: No Comments At time of signature, agree with nursing past medical, surgical, social and family history. There is no relevant family history pertinent to the presenting complaint Exam Narrative: GENERAL: Well-appearing, well-nourished, and in no acute distress. HEAD: Normocephalic, atraumatic. EYES: PERRLA, conjunctivae clear NECK: Supple. CHEST: Speaks in full sentences. No respiratory distress. HEART: Regular rate and rhythm. Normal and equal peripheral pulses. EXTREMITIES: Left lower leg has grossly normal strength and sensation, grossly normal range of motion. My edema with significant ecchymosis, ecchymosis spread down to the ankle and foot. Normal sensation with sensitivity to light touch and pain. Anterior tenderness. No open wounds, no skin tenting, no devitalized tissue or atrophy, no trophic changes, no obvious deformity, alignment normal, nearby joints and structures intact. Distal pulses palpable and equal bilaterally, skin warm, dry, pink. Capillary refill less than 3 seconds. SKIN: Warm, dry, no rash. Healing hematoma noted to the anterior left lower leg with surrounding erythema, warmth and mild induration. No open skin noted NEURO: Alert and oriented x3. PSYCH: Normal mood and affect Course Course Emergency Course: Patient is aware of diagnosis, understands and agrees to treatment plan. Anticipatory guidance given. Patient agrees to follow-up as directed and is aware of reasons to seek care at the emergency department. Portions of this record may have been created with voice recognition software Level of Care: Express Care Visit Vital Signs Vital signs: Vital Signs Temperature 97 F L 10/20/24 09:28 Pulse Rate 70 10/20/24 09:28 Respiratory Rate 16 10/20/24 09:28 Blood Pressure 149/67 H 10/20/24 09:28 Pulse Oximetry 100 10/20/24 09:28 Temperature 97 F L 10/20/24 09:28 Pulse Rate 70 10/20/24 09:28 Respiratory Rate 16 10/20/24 09:28 Blood Pressure 149/67 H 10/20/24 09:28 Pulse Oximetry 100 10/20/24 09:28 Reviewed. MDM - Extremity Injury (Lower) MDM Narrative Medical decision making narrative: The patient was evaluated by myself in the [facility] care. History is obtained from patient who is an independent historian and physical exam was performed.? Available medical records were reviewed at this time. ? Exam findings show no acute concerns or changes; patient is non-toxic appearing and is in no distress. Patient is appropriate for outpatient treatment and follow-up. ? I have evaluated and discussed social determinants of health with the patient that could potentially impact subsequent diagnosis and treatment plans. ? Patients injury and pain is consistent with musculoskeletal etiology. No signs of neurological or vascular compromise on exam. Compartments and tissues are soft without signs of compartment syndrome. Pain is felt appropriate for further evaluation on an outpatient basis. Imaging Data My impression: Images reviewed, interpreted by radiologist, agree, see report. Radiologist's impression: HISTORY: pain/bruising dist Lt tib/fib; hit on bed frame 2 wks ago COMPARISON: None TECHNIQUE: 2 views of the left tibia and fibula were performed FINDINGS: No acute or subacute fracture. Medial tibiofemoral joint space narrowing is present, incompletely evaluated. Remaining joint spaces are preserved and alignment is maintained. Soft tissues are unremarkable without radiopaque foreign body or significant calcification. Age-appropriate mineralization. IMPRESSION: No acute fracture or dislocation within the left tibia and fibula, as detailed above. Critical Care Time Critical Care Time Critical Care Time: No Discharge Plan Discharge Clinical Impression: Cellulitis Patient Disposition: Home Condition: Stable Instructions: Antibiotic Form, Cellulitis (ED) Additional Instructions: Please follow up with your Primary Care Doctor. Rest and elevate affected area. Take Tylenol as needed for pain. Please take Antibiotics as directed. If you experience any worsening redness, swelling, streaking (red lines), fever or chills please go to the ER Patient Language: Nepalese Prescriptions: New cephalexin 500 mg capsule 500 mg PO QID 10 Days Qty: 40 0RF No Action (DME) Aerochamber MV Spacer See Rx Instructions .Route Qty: 1 0RF Rx Instructions: As directed pyridoxine (vitamin B6) 100 mg tablet 100 mg PO DAILY acetaminophen 500 mg capsule 500 mg PO Q6H PRN lysine 500 mg tablet 500 mg PO DAILY polyethylene glycol 3350 [Miralax] 17 gram Powder In Packet 17 g PO DAILY Ocuvite Adult 50 Plus 250-5-1 mg Capsule 1 cap PO DAILY Centrum Silver Women 1 cap PO DAILY amiodarone 200 mg tablet 100 mg PO QAM albuterol sulfate [ProAir HFA] 90 mcg/actuation Hfa Aerosol Inhaler 1 inh INHALATION BID PRN (Reason: Shortness Of Breath Or Wheezing) simethicone 80 mg Tablet,Chewable 80 mg PO DAILY PRN (Reason: abdominal discomfort) metoprolol succinate 50 mg tablet extended release 24 hr 50 mg PO DAILY fluticasone propionate 50 mcg/actuation [place],Suspension 1 spray INTRANASAL DAILY PRN (Reason: Runny Nose) Rx Instructions: administer into each nostril omeprazole 40 mg capsule,delayed release(DR/EC) 40 mg PO DAILY Qty: 90 1RF Xarelto 20 mg tablet 20 mg PO DAILY Qty: 30 1RF Rx Instructions: must administer with evening meal amitriptyline 50 mg tablet 50 mg PO QHS Qty: 90 1RF alprazolam 0.5 mg tablet 1 mg PO QHS Qty: 60 5RF fluticasone furoate-vilanterol [Breo Ellipta] 200-25 mcg/dose blister with device See Rx Instructions .ROUTE .COMPLEX Qty: 60 1RF Dose Instruction: INHALE 1 PUFF BY MOUTH DAILY. RINSE MOUTH AFTER USE Rx Instructions: INHALE 1 PUFF BY MOUTH DAILY. RINSE MOUTH AFTER USE montelukast 10 mg tablet 10 mg PO DAILY Qty: 90 1RF ergocalciferol (vitamin D2) 1,250 mcg (50,000 unit) capsule 50,000 unit PO MONTHLY Qty: 12 0RF calcium carbonate [Oyster Shell Calcium 500] 500 mg calcium (1,250 mg) Tablet 500 mg PO BID Qty: 60 0RF Biotene Moisturizing Mouth [place],Non-Aerosol 1 spray PO TID Qty: 10 0RF Follow-up/Referrals: Marry Malin MD [Primary Care Provider] - Time of Disposition: 10:53
== END 2024-10-20 11:02 | disposition home or self-care (01) ==
PROVIDERS: Emergency Provider Nurse Practitioner; PCP Family Medicine
DX: L03.116 Cellulitis of left lower limb (principal); I48.92 Unspecified atrial flutter; N18.9 Chronic kidney disease, unspecified; E55.9 Vitamin D deficiency, unspecified; J45.909 Unspecified asthma, uncomplicated; M85.80 Other specified disorders of bone density and structure, unspecified site; Z79.01 Long term (current) use of anticoagulants
CPT/HCPCS: 73590; 99213; G0463

== ENCOUNTER 2024-10-23 12:45 | Outpatient (CLI) | payer MEDICARE, SELFPAY ==
--- NOTE | ~2024-10-23 | XR_ITS ---
EXAMINATION: XR chest 2V 10/23/2024 13:06 INDICATION: Long-term use of amiodarone PROCEDURE: 2 view chest COMPARISON: Comparison to multiple prior studies sequentially, with oldest reviewed study dated 05/01. FINDINGS: The lungs are clear. The cardiomediastinal silhouette is within normal limits. There are no pleural effusions. There is no pneumothorax suspected. IMPRESSION: 1: NO ACUTE CARDIOPULMONARY DISEASE. Reviewed, dictated and finalized at location A.
--- OUTSIDE RECORDS SUMMARY | 2024-10-23 12:58 | XMS_ITS | Referral Summary ---
Author Organization [facility] [address] [place] [address] [address] [place] [address] Care Team Providers Care Machine Maintenance Technician Name Role Phone Marry Malin MD Primary Care Provider + Encounters Date Type Department Care Team Description 10/23/2024 11:30 AM CDT Office Visit [facility] Medical [facility] Cardiology [facility] [address] [place] [address] José Miguel Keith MD Paroxysmal atrial flutter (HCC) (Primary Dx); residential 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; PVC's (premature ventricular contractions); Chronic anticoagulation 10/19/2024 Results Follow-Up [facility] Medical [facility] Cardiology [address] [place] [address] [address] [place] [address] Kanwal Moore NP Comprehensive metabolic panel 10/19/2024 Orders Only [facility] Medical [facility] Cardiology [address] [place] [address] [address] [place] [address] ProviderLillian MD from Last 3 Months Allergies Active Allergy Reactions Criticality Noted Date Comments Aspirin Stomach upset Low 08/30/2020 Codeine Stomach upset Low 11/07/2020 Iron Stomach upset Low 08/30/2020 Medications montelukast (SINGULAIR) 10 mg tablet Take 1 tablet (10 mg total) by mouth daily 03/29/20 21 Active ALPRAZolam (XANAX) 0.5 mg tablet [...] ORAL) Take by mouth as needed Active ah-rr-NP-vit S-uuhhm-bdew-z eax 200-15-150 mcg tablet Take by mouth Activ e multivit-financial examiner lu-xpqw-jpplbe tablet Take by mouth Active acetaminophen (TYLENOL) 325 mg tablet Take 500 mg by mouth every 6 (six) hours as needed Active guaiFENesin ER (MUCINEX) 600 mg 12 hr tablet Take 2 tablets (1,200 mg total) by mouth as needed Active FLUTICASONE PROPIONATE NASL Administer 2 sprays into affected nostril(s) daily as needed 04/28/19 22 Active Ferrocite 324 mg (106 mg iron) tablet Take 1 tablet by mouth daily 09/25/19 22 Active omeprazole (PriLOSEC) 40 mg capsule Take 1 capsule (40 mg total) by mouth daily 04/03/19 23 Active fluticasone furoate-vilant Jamari (BREO ELLIPTA) 200-25 mcg/dose diskus inhaler 08/15/19 24 Active amitriptyline (ELAVIL) 50 mg tablet Take 1 tablet (50 mg total) by mouth nightly at bedtime 01/24/20 24 Active metoprolol XL (TOPROL-XL) 50 mg extended release tabletIndicati ons:Paroxysmal atrial flutter (HCC) TAKE 1 TABLET(50 MG) BY MOUTH EVERY MORNING 90 tablet 3 04/17/19 25 Active Xarelto 20 mg tablet TAKE 1 TABLET(20 MG) BY MOUTH DAILY WITH DINNER 90 tablet 3 07/21/19 25 Active cephalexin (KEFLEX) 500 mg capsule Take 1 capsule (500 mg total) by mouth 4 (four) times a day For 10 days 10/21/19 25 Active olopatadine (PATADAY) 0.2 % ophthalmic solution Administer 1 drop into both eyes daily 025 Discontinued(No longer taking - Do not display on AVS) amiodarone (PACERONE) 200 mg tablet Take 0.5 tablets (100 mg total) by mouth daily 15 tablet 5 06/21/19 25 025 Discontinued amiodarone (PACERONE) 200 mg tablet TAKE 1/2 TABLET(100 MG) BY MOUTH DAILY 45 tablet 1 10/03/19 25 025 Discontinued(Th erapy completed) Active Problems Problem Noted Date Diagnosed Date residential 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 09/11/2022 Atrial flutter 07/10/2022 Typical atrial flutter 06/05/2022 Overview (06/05/2022): Added automatically from request for surgery [id number] PVC's (premature ventricular contractions) 10/08 Dyspnea on exertion 10/08/2021 Paroxysmal tachycardia, unspecified (CMS/HCC) (H CC) 10/08/2021 Chronic anticoagulation 10/08/2021 Paroxysmal atrial flutter 10/08/2021 Social History Tobacco Use Types Packs/Day [...] on file 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 Gender Identity Female 08/30/2020 6:13 AM CDT Sexual Orientation Straight 08/30/2020 6: 13 AM CDT Last Filed Vital Signs Vital Sign Reading Time Taken Comments Blood Pressure 134/66 10/23/2024 11:42 AM CDT Pulse 70 10/23/2024 11:42 AM CDT Temperature 36.3 C (97.3 F) 07/10/2022 11:15 AM CDT Respiratory Rate 16 06/03/2023 9:23 AM CDT Oxygen Saturation 98% 10/23/2024 11:42 AM CDT Inhaled Oxygen Concentration - - Weight 64.4 kg (142 lb) 10/23/2024 11:42 AM CDT Height 160 cm (5' 3) 10/23/2024 11:42 AM CDT Body Mass Index 25.15 10/23/2024 11:42 AM CDT Plan of Treatment Not on file Medical Devices Implanted Type Area Oven Technician Device Identifier Shelf Expiration Date Model / Serial / Lot [employer] Vascade Mvp 6-12fr Venous Closure [id number] - [id number] Implanted:Qty : 1 on 07/10/2022 by Cole Price MD at [facility] Collagen Right: Femoral Vein [employer] 03/05/2024 800-612C- 10U / / [id number] [employer] Vascade Mvp 6-12fr Venous Closure [id number] - [id number] Implanted:Qty : 1 on 07/10/2022 by Cole Price MD at [facility] Collagen Right: Femoral Vein [employer] 04/08/2024 800-612C- 10U / / [id number] [employer] Vascade Mvp 6-12fr Venous Closure [id number] - [id number] Implanted:Qty : 1 on 07/10/2022 by Cole Price MD at [facility] Collagen Right: Femoral Vein [employer] 04/08/2024 800-612C- 10U / / [id number] [id number] Insurance MEDICARE [facility] MEDICARE Care Teams Machine Maintenance Technician Relationship Specialty Start Date End Date Marry Malin MD PCP - General Family Medicine 04/15/22
--- OUTSIDE RECORDS SUMMARY | 2024-10-23 12:58 | XMS_ITS | Clinical Summary ---
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 09/11/2022 Atrial flutter 07/10/2022 Typical atrial flutter 06/05/2022 Overview (06/05/2022): Added automatically from request for surgery [id number] PVC's (premature ventricular contractions) 10/08 Dyspnea on exertion 10/08/2021 Paroxysmal tachycardia, unspecified (CMS/HCC) (H CC) 10/08/2021 Chronic anticoagulation 10/08/2021 Paroxysmal atrial flutter 10/08/2021 Encounters Date Type Department Care Team Description 10/23/2024 11:30 AM CDT Office Visit [facility] Medical [facility] Cardiology [address] [place] [phone] José Miguel Keith MD Paroxysmal atrial flutter (HCC) (Primary Dx); 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; PVC's (premature ventricular contractions); Chronic anticoagulation 10/19/2024 Results Follow-Up [facility] Medical [facility] Cardiology [address] [place] [phone] Kanwal Moore NP Comprehensive metabolic panel 10/19/2024 Orders Only [facility] Medical [facility] Cardiology [address] [place] [phone] Provider, MD Lillian from Last 3 Months Surgical History Surgery Date Site/Laterality Comments CHOLECYSTECTOMY BACK SURGERY APPENDECTOMY CARPAL TUNNEL RELEASE CATARACT EXTRACTION 2016 - 2017 SPINE SURGERY 03/22/1993 - 03/21/1994 Medical History Medical History Date Comments Fibromyalgia Seasonal allergies Asthma Atrial flutter (HCC) Rapid heart rate Cardiac rhythm disturbance Sinusitis Anemia Acid indigestion Gallstones Hypertension Bilateral cataracts GERD (gastroesophageal reflux disease) Anxiety Osteoporosis Peptic ulceration Motion sickness Arthritis Chronic bronchitis (HCC) Heart disease Emphysema of lung Family History Medical History Relation Name Comments [...] on file 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 Gender Identity Female 08/30/2020 6:13 AM CDT [...] 10/23/2024 11:42 AM CDT Plan of Treatment Health Maintenance Due Date Last Done Comments Depression Screening 1945 Hepatitis C Screening 1945 Osteoporosis Screening-Bone Density Scan 1945 DTaP/Tdap/Td Vaccine (1 - Tdap) 07/30/1958 Hepatitis B Screening 07/30/1965 Pneumococcal vaccine 65+ (1 of 1 - PCV) 07/30/1997 Well Visit 65+ 07/30/2012 Fall Risk Assessment 07/11/2023 07/10/2022 Influenza Vaccine (#1) 2024 0, 11/16/2018, 12/21/2017 Zoster Vaccine Completed 08/02/2018, 05/25/2018 Medical Devices Implanted Type Area Software Sales Representative Device Identifier Shelf Expiration Date Model / Serial / Lot [employer] Vascade Mvp 6-12fr Venous Closure [id number] - [id number] Implanted:Qty : 1 on 07/10/2022 by Cole Price MD at [facility] Collagen Right: Femoral Vein [employer] 03/05/2024 800-612C- 10U / / [id number] [employer] Vascade Mvp 6-12fr Venous Closure [id number] - [id number] Implanted:Qty : 1 on 07/10/2022 by Cole Price MD at [facility] Collagen Right: Femoral Vein [employer] 04/08/2024 800-612C- 10U / / [id number] [id number] [employer] Vascade Mvp 6-12fr Venous Closure [id number] - [id number] Implanted:Qty : 1 on 07/10/2022 by Cole Price MD at [facility] Collagen Right: Femoral Vein [employer] 04/08/2024 800-612C- 10U / / [id number] 31C Insurance MEDICARE [facility] MEDICARE Care Teams Technical Translator Relationship Specialty Start Date End Date Marry Malin MD PCP - General Family Medicine 04/15/22
--- OUTSIDE RECORDS SUMMARY | 2024-10-23 12:58 | XMS_ITS | Encounter Summary ---
Author Organization [facility] Healthcare Address [address] [place] [address] Care Team Providers Care Combatant Diver Officer Name Role Phone Marry Malin MD Primary Care Provider + Encounter Details Date Type Department Care Team (Late st Contact Info) Description 10/19/2024 Results Follow-Up 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
--- OUTSIDE RECORDS SUMMARY | 2024-10-23 12:58 | XMS_ITS | Encounter Summary ---
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 Gender Identity Female 08/30/2020 6:13 AM CDT Sexual Orientation Straight 08/30/2020 6: 13 AM CDT documented as of this encounter Plan of Treatment Not on file documented as of this encounter Procedures Procedure Name Priority Date/Time Associated Diagnosis Comments LIPID PANEL Routine 04/14/2024 11:50 AM COOK SHORT ORDER documented in this encounter Results * Lipid panel (04/14/2024 11:50 AM COOK SHORT ORDER) SCRIBED Cholesterol, Total 191 30 - 199 mg/dL EXTERNAL LAB SCRIBED Triglycerides 69 <=149 mg/dL EXTERNAL LAB SCRIBED HDL 87 >=40 mg/dL EXTERNAL LAB SCRIBED LDL 77 <=129 mg/dL EXTERNAL LAB Scribed Non-HDL Cholesterol EXTERNAL LAB Comment:Not performed by lab SCRIBED Total Cholesterol/HDL Ratio 191 NONE EXTERNAL LAB Blood us Historical Provider LAB BLOOD ORDERABLES Edit ed Result - Final EXTERNAL LAB documented in this encounter Visit Diagnoses Not on filedocumented in this encounter Care Teams Installation Engineer Relationship Specialty Start Date End Date Marry Malin MD PCP - General Family Medicine 04/15/22 documented as of this encounter
--- OUTSIDE RECORDS SUMMARY | 2024-10-23 12:58 | XMS_ITS | Encounter Summary ---
Author Organization [facility] Healthcare Address [address] [place] [address] Care Team Providers Care Counter Waiter Name Role Phone Marry Malin MD Primary Care Provider + Reason for Referral * Procedure (Routine) - Authorized Specialty Diagnoses / Procedures Referred By Contac t Referred To Contact Diagnoses [facility] 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 Procedures Pulmonary Function Test -External José Miguel Keith MD [address] [place] [address] Phone: tel: fax: Referral ID Status Reason Start Date Expiration Date V isits Requested Visits Authorized [id number] Authorized 10/23/2024 11/22/2025 1 1 Reason for Visit * Reason Comments Atrial Flutter 6 mo f/u Encounter Details Date Type Department Care Team (Latest Contact Info) Description 10/23/2024 11:30 AM CDT Office Visit [facility] Medical [facility] Cardiology [address] [facility] [address] [place] [address] José Miguel Keith MD [address] [place] [address] Paroxysmal atrial flutter (HCC) (Primary Dx); [facility] 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; PVC's (premature ventricular contractions); Chronic anticoagulation Social History Tobacco Use Types Packs/Day Years [...] on file 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 Gender Identity Female 08/30/2020 6:13 AM CDT Sexual Orientation Straight 08/30/2020 6: 13 AM CDT documented as of this encounter Last Filed Vital Signs Vital Sign Reading Time Taken Comments Blood Pressure 134/66 10/23/2024 11:42 AM CDT Pulse 70 10/23/2024 11:42 AM CDT Temperature - - Respiratory Rate - - Oxygen Saturation 98% 10/23/2024 11:42 AM CDT Inhaled Oxygen Concentration - - Weight 64.4 kg (142 lb) 10/23/2024 11:42 AM CDT Height 160 cm (5' 3) 10/23/2024 11:42 AM CDT Body Mass Index 25.15 10/23/2024 11:42 AM CDT documented in this encounter Progress Notes * José Miguel Keith MD - 10/23/2024 11:30 AM CDT [facility] Medical [facility] Cardiology [address] [place] [address] Date of Visit: 10/23/2024 Patient ID: Mely Moody 1945 Chief Complaint Patient presents with Atrial Flutter 6 mo f/u Mely Moody is a 79 y.o. female who comes to the office for routine follow up after she was diagnosed with atrial flutter with RVR when hospitalized in July 2020. History of Present Illness: Mely Moody is a 79 y.o. femalewith a past medical history of asthma, sinusitis, fibromyalgia, hypertension, GERD, cholelithiasis s/p cholecystectomy, ADHD, back surgery (lumbar laminectomy). She was being evaluated by her PCP for complaint of shortness of breath with exertion and was scheduled for a stress test. However she was found to be tachycardic with heart rates in the 150s and 160s when she presented for the stress test if she was advised to go to the ER. She was found to be in atrial flutter with RVR. Dr. eKith met her in consultation. Her echocardiogram showed normal LV size and no wall motion abnormalities, EF estimated greater than 70%, grade 2 diastolic dysfunction, mildLAE, an aneurysmal atrial septum but a negative bubble study, no significant valve disease. She didnot respond to initial medical therapy (the patient thinks her IV was leaking and she actually did not get the IV diltiazem or metoprolol) so she proceeded to have a FAN and then a successful cardioversion. She was placed on metoprolol and Xarelto. She was advised to discuss discontinuation of Adderall and Excedrin with her PCP. Hospital follow-up with [facility] 08/30/2020 - Mely Moody comes to the office today for a hospital follow up visit. She reports feeling much better. She is now off of Adderall and Excedrin. She notices she feels more tired and has some trouble with word recall. She has had a few headaches but they responded well to acetaminophen. She has been checking blood pressure and pulse regularly at home. The blood pressure machine sometimes gives her an indicator of irregular beat but she does not feel any palpitations. Her heart rate has been in the 80s and her blood pressures have been 110-120 systolic and 60s diastolic. Follow-up with [facility] 11/07/2020 - she has been wearing a fit bit and notices her heart rate spikes up when she bends over to pick something up. She notices shortness of breath and some mild pressure in her chest when she does physical activity such as lifting and carrying Plastic storage been so. Sometimes she notices her heart rate elevates to 100-115 going up the steps in her home but she does notfeel it racing. She cut her finger the other day and it took almost 3 hours to stop bleeding but otherwise she has not noticed anything like blood in the stool, urine or sputum. Since being off the Adderall she does not feel as rested when she wakes up and she feels she has less energy to do things. She also mentions she is having some hoarseness to her voice when she speaks. Follow-up with [facility] 07/17/2021 -at the last visit, I increased her metoprolol after the Holter monitor showed some elevated heart rates. Her stress test was negative for ischemia. She returns today forfollow-up after being rescheduled a few times. She has no complaints or concerns. She brings a record of daily blood pressures and heart rates with blood pressures ranging systolic 110 to 120s, diastolic 60s and heart rate 70s to 80s with her blood pressure machine indicating and irregular heartbeat about 50% of the time. She does not feel palpitations or breathlessness. She denies any bleeding problems. 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 Follow-up note 10/08/2021: She denies any chest pain, shortness breath, syncope, presyncope, paroxysmal nocturnal dyspnea, orthopnea, edema or palpitations. She does have some bruisability. On occasion her blood pressure cuff will alert irregular heartbeat but she is asymptomatic. she does feel tired at times Follow-up note 04/15/2022: She has been having some worsening shortness of breath over the past couple of months. At the time of her colonoscopy she missed a couple doses of metoprolol. Since that time she is noticed that her heart rate has been elevated. Typically speaking her heart rate is alwaysabove 100. She otherwise denies any syncope, presyncope, paroxysmal nocturnal dyspnea orthopnea, palpitations. Follow-up note 09/11/2022: She did undergo attempt at atrial flutter ablation unfortunately was unsuccessful. She is now on amiodarone. She does not feel palpitations but does feel quite tired overall. She has no syncope, presyncope, chest pain, shortness breath, paroxysmal nocturnal dyspnea orthopnea or edema Follow-up note 03/18/2023: She has some voice issues due to some bronchitis. From a cardiac perspective she is okay and denies any chest pain, shortness breath, syncope, presyncope, paroxysmal nocturnal dyspnea, orthopnea, edema palpitations or bleeding Follow-up note 10/12/2023: She saw Dr. Price who had recommended that she stop her amiodarone temporarily at least to see if her gait instability and falls would improve. She did not actually do that due to miscommunication and misunderstanding. She denies any chest pain, shortness breath, syncope, presyncope, paroxysmal nocturnal dyspnea, orthopnea, edema, palpitations or bleeding issues Follow-up note 10/23/2024: She denies any chest pain, shortness breath, syncope, presyncope, paroxysmal nocturnal dyspnea, orthopnea, edema or palpitations. Follow-up with [facility] 04/11/2024: She is here for routine follow-up. She has no specific concerns. She denies any falls or bleeding problems since her last visit. She remained on amiodarone. When PCP checked routine labs she was told her thyroid value was abnormal, instructed to get off biotin, and recheck lab was better. Follow-up note 10/23/2024: She feels short of breath more easily. She also has fallen in the past and continues to be clumsy and unsteady on her feet. She hit her olivia recently and has a large hematoma in her left lower leg. No chest pain, paroxysmal nocturnal dyspnea, orthopnea, edema. Records that I personally reviewed on the day of this visit include: (the interpretation is outlined in the HPI above) Office note from myself 11/07/2020, subsequent Holter monitor report and stress test report, subsequent telephone notes and patient messages in [place]. I have also reviewed: allergies, current medications, past family history, past medical history, past social history, past surgical history and problem list Medical History: Past Medical History: Diagnosis Date Acid indigestion Anemia Anxiety Arthritis Asthma Atrial flutter (HCC) Bilateral cataracts Cardiac rhythm disturbance Chronic bronchitis (HCC) Emphysema of lung (HCC) Fibromyalgia Gallstones GERD (gastroesophageal reflux disease) Heart disease Hypertension Motion sickness Osteoporosis Peptic ulceration Rapid heart rate Seasonal allergies Sinusitis Past Surgical History: Procedure Laterality Date APPENDECTOMY BACK SURGERY CARPAL TUNNEL RELEASE CATARACT EXTRACTION 2016 - 2017 CHOLECYSTECTOMY SPINE SURGERY 1994 Social History Tobacco Use Smoking status: Never Smoker Smokeless tobacco: Never Used Substance Use Topics Drug use: Never Family History Problem Relation Age of Onset Kidney failure Mother Asthma Mother Cancer Mother Peripheral vascular disease Mother Emphysema Father Alcohol abuse Father Other (pulmonary congestion listed on certificate) Father Other (Blue Baby) Brother Other (aspiration pneumonitis) Brother Cancer Brother Diabetes Brother Cancer Brother Review of Systems Constitutional: Positive for malaise/fatigue. Negative for diaphoresis, fever, weight gain and weight loss. HENT: Negative for hearing loss. Eyes: Negative for visual disturbance. Cardiovascular: Negative for chest pain, claudication, dyspnea on exertion, leg swelling, orthopnea, palpitations, paroxysmal nocturnal dyspnea and syncope. Respiratory: Negative for cough, hemoptysis, shortness of breath, snoring and wheezing. Hematologic/Lymphatic: Does not bruise/bleed easily. Skin: Negative for poor wound healing and rash. Musculoskeletal: Negative for joint pain and myalgias. Gastrointestinal: Negative for heartburn, nausea and vomiting. Genitourinary: Negative for hematuria. Neurological: Negative for dizziness, headaches and light-headedness. Psychiatric/Behavioral: Negative for depression. The patient is not nervous/anxious. Vital Signs: BP 134/66 (BP Location: Left arm, Patient Position: Sitting) Pulse 70 Ht 160 cm (5' 3) Wt 64.4 kg (142 lb) SpO2 98% BMI 25.15 kg/m?? Physical Exam Vitals reviewed. Constitutional: General: She is not in acute distress. Appearance: She is well-developed. HENT: Head: Normocephalic and atraumatic. Nose: Comments: Wearing a mask Eyes: General: No scleral icterus. Conjunctiva/sclera: Conjunctivae normal. Neck: Vascular: No JVD. Trachea: No tracheal deviation. Cardiovascular: Rate and Rhythm: Tachycardia present. Heart sounds: Normal heart sounds. No murmur heard. Comments: Regularly irregular Pulmonary: Effort: Pulmonary effort is normal. No respiratory distress. Breath sounds: Normal breath sounds. Abdominal: Palpations: Abdomen is soft. Skin: General: Skin is warm and dry. Neurological: Mental Status: She is alert and oriented to person, place, and time. Psychiatric: Mood and Affect: Mood normal. Behavior: Behavior normal. Allergies Allergen Reactions Aspirin Stomach upset Codeine Stomach upset Iron Stomach upset Current Outpatient Medications: acetaminophen (TYLENOL) 325 mg tablet, Take 500 mg by mouth every 6 (six) hours as needed , Disp: ,Rfl: ALPRAZolam (XANAX) 0.5 mg tablet, Take 1 tablet (0.5 mg total) by mouth 2 (two) times a day, Disp: , Rfl: amiodarone (PACERONE) 200 mg tablet, TAKE 1/2 TABLET(100 MG) BY MOUTH DAILY, Disp: 45 tablet, Rfl: 1 amitriptyline (ELAVIL) 50 mg tablet, Take 1 tablet (50 mg total) by mouth nightly at bedtime, Disp:, Rfl: calcium carbonate (CALCIUM 500 ORAL), Take 600 mg by mouth 2 (two) times a day after breakfast and dinner, Disp: , Rfl: cephalexin (KEFLEX) 500 mg capsule, Take 1 capsule (500 mg total) by mouth 4 (four) times a day For10 days, Disp: , Rfl: docusate sodium (COLACE) 100 mg capsule, Take 1 capsule (100 mg total) by mouth 2 (two) times a day, Disp: , Rfl: ergocalciferol (VITAMIN D) 50,000 unit capsule, TAKE 1 CAPSULE BY MOUTH ONCE EVERY MONTH, Disp: , Rfl: Ferrocite 324 mg (106 mg iron) tablet, Take 1 tablet by mouth daily, Disp: , Rfl: fluticasone furoate-vilanteroL (BREO ELLIPTA) 200-25 mcg/dose diskus inhaler, , Disp: , Rfl: FLUTICASONE PROPIONATE NASL, Administer 2 sprays into affected nostril(s) daily as needed, Disp: , Rfl: guaiFENesin ER (MUCINEX) 600 mg 12 hr tablet, Take 2 tablets (1,200 mg total) by mouth as needed, Disp: , Rfl: lysine 500 mg tablet, Take 1 tablet (500 mg total) by mouth daily, Disp: , Rfl: metoprolol XL (TOPROL-XL) 50 mg extended release tablet, TAKE 1 TABLET(50 MG) BY MOUTH EVERY MORNING, Disp: 90 tablet, Rfl: 3 montelukast (SINGULAIR) 10 mg tablet, Take 1 tablet (10 mg total) by mouth daily, Disp: , Rfl: hrqiqcat-ywoppvi-ambp-lutein tablet, Take by mouth, Disp: , Rfl: uv-tx-EI-vit F-ikehp-tjgu-zeax 200-15-150 mcg tablet, Take by mouth, Disp: , Rfl: polyethylene glycol (MIRALAX) 17 gram packet, Take 1 packet (17 g total) by mouth daily, Disp: , Rfl: simethicone (GAS-X ORAL), Take by mouth as needed, Disp: , Rfl: vitamin b complex tablet, Take 1 tablet by mouth daily, Disp: , Rfl: vitamin E (AQUASOL E) 400 unit capsule, 1 capsule (400 Units total) every other day, Disp: , Rfl: Xarelto 20 mg tablet, TAKE 1 TABLET(20 MG) BY MOUTH DAILY WITH DINNER, Disp: 90 tablet, Rfl: 3 omeprazole (PriLOSEC) 40 mg capsule, Take 1 capsule (40 mg total) by mouth daily, Disp: , Rfl: Lab Results Component Value Date POTASSIUM 4.1 09/14/2022 BUNSER 11 09/14/2022 CREATININE 1.00 04/14/2024 Lab Results Component Value Date WBC 3.9 09/14/2022 HGB 12.3 09/14/2022 HCT 36.3 09/14/2022 MCV 86.8 09/14/2022 MPI 11/08/2020 Global left ventricular function is normal. Left ventricular ejection fraction is 66 %. Myocardial perfusion imaging is normal. Negative EKG portion of stress test. 48 hour Holter monitor October 2020 Frequent PVCs, 7.5% burden No atrial fibrillation or flutter Symptoms correlated with sinus tachycardia EKG 04/15/2022: Atrial flutter with rapid ventricular response heart rate 143. Low voltage. PVC abnormal EKG ECHO 07/23/2022 Normal left ventricular size. Hyperdynamic left ventricular function. No focal wall motion abnormalities. Normal left ventricular diastolic function. Ejection fraction is visually estimated at 70 %. Ejection fraction is measured at -19 %. There is mild enlargement of left atrium. Normal appearance of the mitral valve. Mild mitral annular calcification. Normal appearance of the aortic valve. Normal sinus rhythm. . Paroxysmal atrial flutter Initially diagnosed in 07/2020 and needed FAN/DCCV for rhythm control Repeat DCCV in 03/2022 and 04/2022 for recurrent AFL. Started on Amiodarone prior to most recent DCCV Maintained on amiodarone 200 mg, Metoprolol XL 50 mg and Xarelto Underwent unsucessful AFL RFA(diagnostics during study c/w CCW CTI AFL) 07/10/22 EKG 10/23/2024: Normal sinus rhythm, normal EKG Assessment: Diagnoses and all orders for this visit: Paroxysmal atrial flutter (CMS/HCC) (HCC) (Primary) In sinus rhythm. On anticoagulation Chronic anticoagulation No significant bleeding problems but she does have bruisability and mild anemia Dyspnea on exertion Resolved PVC's (premature ventricular contractions) Asymptomatic Long-term 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 Blood work normal August 2022 Plan/Recommendations: EKG today because of atrial flutter She is stable. I am going to stop her amiodarone completely. She is short of breath with activity it seems to be worsening. She remains in sinus rhythm. Because of her history of falls, gait instability and injury including a large hematoma in her leftshin, I think it is reasonable for her to look at pursuing a Watchman or amulet. Will refer to Dr. Hussein I am going to discontinue her amiodarone completely. She is short of breath and at this point remains in sinus rhythm. Given symptoms and she also has had some thyroid issues in the past, I think it is reasonable to get her off of the amiodarone We will order a PFT and chest x-ray Continue Xarelto for anticoagulation and other medications without change. Follow-up in 6 months or sooner as clinically indicated José Miguel Keith MD, [facility] This note is dictated and transcribed using Fluential Direct Software. Farm Machine Tender variancesmay occur. Despite proofreading, typographical errors may occur. documented in this encounter Plan of Treatment Scheduled Orders Name Type Priority Associated Diagnoses Orde r Schedule XR Chest Pa Lateral 2 Views Imaging Schedule Routine, Read Routine (OP Routine) meterman 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 Expected: 10/23/2024, Expires: 10/23/2025 Pulmonary Function Test -External PFT Routine meterman 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 1 Occurrences starting 10/23/2024 until 10/23/2025 documented as of this encounter Visit Diagnoses Diagnosis Paroxysmal atrial flutter (HCC)- Primary meterman 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 PVC's (premature ventricular contractions) Other premature beats Chronic anticoagulation Encounter for long-term (current) use of anticoagulants documented in this encounter Discontinued Medications Medication Sig Discontinue Reason Start Date End Da te olopatadine (PATADAY) 0.2 % ophthalmic solution Administer 1 drop into both eyes daily No longer taking - Do not display on AVS 10/23/2024 amiodarone (PACERONE) 200 mg tablet TAKE 1/2 TABLET(100 MG) BY MOUTH DAILY Therapy completed 10/02/2024 10/23/2024 documented as of this encounter Historical Medications * This list may reflect changes made after this encounter. cephalexin (KEFLEX) 500 mg capsule Take 1 capsule (500 mg total) by mouth 4 (four) times a day For 10 days 10/20/2024 added in this encounter Care Teams Counter Waiter Relationship Specialty Start Date End Date Marry Malin MD PCP - General Family Medicine 04/15/22 documented as of this encounter
== END 2024-10-23 12:46 | disposition home or self-care (01) ==
LOC: ANHIMG 12:53
PROVIDERS: PCP Family Medicine; Visit Provider Internal Medicine Cardiovascular Disease
DX: Z79.899 Other long term (current) drug therapy (principal)
CPT/HCPCS: 71046

== ENCOUNTER 2024-10-30 09:01 | Outpatient (CLI) | payer MEDICARE, SELFPAY ==
--- OUTSIDE RECORDS SUMMARY | 2024-10-30 09:08 | XMS_ITS | Encounter Summary ---
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
--- OUTSIDE RECORDS SUMMARY | 2024-10-30 09:08 | XMS_ITS | Clinical Summary ---
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 09/11/2022 Atrial flutter 07/10/2022 Typical atrial flutter 06/05/2022 Overview (06/05/2022): Added automatically from request for surgery [id number] PVC's (premature ventricular contractions) 10/08 Dyspnea on exertion 10/08/2021 Paroxysmal tachycardia, unspecified (CMS/HCC) (H CC) 10/08/2021 Chronic anticoagulation 10/08/2021 Paroxysmal atrial flutter 10/08/2021 Encounters Date Type Department Care Team Description 10/27/2024 Results Follow-Up [facility] Cardiology [address] [place] [address] [place] [phone] José Miguel Keith MD SCAN - RADIOLOGY/IMAGING 10/23/2024 11:30 AM CDT Office Visit [facility] Cardiology [address] [place] [address] [place] [phone] José Miguel Keith MD Paroxysmal atrial flutter (HCC) (Primary Dx); longterm 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; PVC's (premature ventricular contractions); Chronic anticoagulation 10/23/2024 Orders Only [facility] Health Information Management [address] [place] [phone] José Miguel Keith MD 10/19/2024 Results Follow-Up [facility] Cardiology [address] [place] [address] [place] [phone] Kanwal Moore NP Comprehensive metabolic panel 10/19/2024 Orders Only [facility] Cardiology [address] [place] [address] [place] [phone] ProviderLillian MD from Last 3 Months Surgical History Surgery Date Site/Laterality Comments CHOLECYSTECTOMY BACK SURGERY APPENDECTOMY CARPAL TUNNEL RELEASE CATARACT EXTRACTION 2017 - 2017 SPINE SURGERY 03/22/1993 - 03/21/1994 [...] Father Edvin pulmonary congestion listed on certificate Rosio Pardo Asthma Mother Julianna Cancer Mother Julianna Kidney [...] on file 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 Gender Identity Female 08/30/2020 6:13 AM CDT [...] Assessment 07/11/2023 07/10/2022 Influenza Vaccine (#1) 2024 , 11/16/2018, 12/21/2017 Zoster Vaccine Completed 08/02/2018, 05/25/2018 Medical Devices Implanted Type Area Plant And Instrument Engineer Device Identifier Shelf Expiration Date Model / Serial / Lot [employer] Vascade Mvp 6-12fr Venous Closure [id number] - [id number] Implanted:Qty : 1 on 07/10/2022 by Cole Price MD at [facility] Collagen Right: Femoral Vein [employer] 03/05/2024 800-612C- 10U / / [id number] [employer] Vascade Mvp 6-12fr Venous Closure [id number] - [id number] Implanted:Qty : 1 on 07/10/2022 by Cole Price MD at [facility] Collagen Right: Femoral Vein [employer] 04/08/2024 800-612C- 10U / / [id number] [employer] Vascade Mvp 6-12fr Venous Closure [id number] - [id number] Implanted:Qty : 1 on 07/10/2022 by Cole Price MD at [facility] Collagen Right: Femoral Vein [employer] 04/08/2024 800-612C- 10U / / [id number] 31C Procedures Procedure Name Priority Date/Time Associated Diagnosis Comments ELECTROCARDIOGRAM REPORT Routine 025 3:54 PM CDT Paroxysmal atrial flutter (HCC) longterm 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 SCAN - RADIOLOGY/IMAGING 10/23/2024 from Last 3 Months Results * Electrocardiogram Report (10/23/2024 3:54 PM CDT) us José Miguel Keith MD ECG ORDERABLES Final Res ult * SCAN - RADIOLOGY/IMAGING (10/23/2024) Anatomical Region Laterality Modality Other José Miguel Keith MD Final Res ult from Last 3 Months Insurance MEDICARE [facility] MEDICARE Care Teams Bag Maker Relationship Specialty Start Date End Date Marry Malin MD PCP - General Family Medicine 04/15/22
--- OUTSIDE RECORDS SUMMARY | 2024-10-30 09:08 | XMS_ITS | Encounter Summary ---
Author Organization [facility] Healthcare Address [address] [place] [address] Care Team Providers Care Rn Operating Room Name Role Phone Marry Malin MD Primary Care Provider + Encounter Details Date Type Department Care Team (Late st Contact Info) Description 10/27/2024 Results Follow-Up [facility] Medical Group Cardiology [address] [place] [address] José Miguel Keith MD [address] [facility] [address] [place] [address] [facility] C, [place] [address] [place] [address] SCAN - RADIOLOGY/IMAGING Social History Tobacco Use Types Packs/Day Years [...] on file Legal Sex Female 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
--- NOTE | 2024-10-30 12:51 | WPDPFTINT ---
PFT Procedure Performed PFT Procedure Performed Plethysmography (Lung Vol) Diffusing Cap (DLCO) Flow Vol Loop Spirometry w/o Bronchodil PFT Interpretation This is a pulmonary function test with spirometry, plethysmography and diffusing capacity. The test was performed and results interpreted in accordance with the 2019 and 2005 ATS/ERS Task Force guidelines respectively using the Global Lung Function Initiative-2012 reference equations. Patient demonstrated good effort and cooperation. Reproducibility criteria were met. The quality of the spirometry maneuver was Grade A. Findings: Spirometry: The contour the inspiratory and expiratory flow tracing are normal. The FVC is 2.38 L, 94% predicted. The FEV1 is 2.01 L, 103% predicted. The FEV1: FVC ratio is 84%. Plethysmography: The total lung capacity is 4.46 L, 91% predicted. The functional residual capacity is 2.90 L, 103% predicted. The residual volume is 1.98 L, 87% predicted. Diffusing capacity: The diffusing capacity unadjusted for hemoglobin and carboxyhemoglobin is 11.7, 60% predicted. The diffusing capacity adjusted for alveolar volume is 3.38, 80% predicted. Impression: The spirometry is normal without evidence of an obstructive abnormality. The lung volumes are normal. The diffusing capacity unadjusted for hemoglobin and carboxyhemoglobin is moderately decreased and normalizes when adjusted for alveolar volume. There are no prior studies for comparison
== END 2024-10-30 09:02 | disposition home or self-care (01) ==
LOC: ANHPFT 09:03
PROVIDERS: PCP Family Medicine; Visit Provider Internal Medicine Cardiovascular Disease
DX: Z79.899 Other long term (current) drug therapy (principal)
CPT/HCPCS: 94375; 94726; 94729

== ENCOUNTER 2024-12-05 13:48 | Outpatient (CLI) | payer MEDICARE, SELFPAY ==
--- NOTE | ~2024-12-05 | MM_ITS ---
EXAMINATION: MM screening randall BI w ericka HISTORY: Screening TECHNIQUE: Craniocaudal and mediolateral oblique 3-D tomosynthesis images were obtained and synthetic 2-D images were generated. CAD analysis was submitted and interpreted. COMPARISON: 12/04/2022 BREAST PARENCHYMAL COMPOSITION: The breasts are extremely dense, which lowers the sensitivity of mammography. FINDINGS: There is no evidence of suspicious mass, calcification, or architectural distortion to suggest malignancy. There has been no suspicious interval change. IMPRESSION: 1. No mammographic evidence of malignancy. Recommend routine screening mammography in one year. BI-RADS Category 2: Benign finding(s) Reviewed, dictated and finalized at location Q. IMPRESSION: 1. No mammographic evidence of malignancy. Recommend routine screening mammogra phy in one year. BI-RADS Category 2: Benign finding(s)
--- NOTE | ~2024-12-05 | DEXA_ITS ---
Bone Density Report Name: LEX MCHUGH Age: 79 Sex: Female Ethnicity: White Date of : 1945 Indication: osteopenia; height loss; prior fracture; asthma or emphysema; Referring Provider: ABDIAZIZ RIVERA Study: Bone densitometry was performed. Exam Date: December 05, 2024 Accession number: [id number] Bone Density: Region BMD T-score Z-score Classification AP Spine(L1-L4) 1.116 0.6 3.2 Normal Femoral Neck (Left) 0.681 -1.5 0.7 Osteopenia Total Hip (Left) 0.774 -1.4 0.5 Osteopenia Femoral Neck (Right) 0.659 -1.7 0.5 Osteopenia Total Hip (Right) 0.759 -1.5 0.4 Osteopenia Total Hip Mean 0.766 -1.5 0.5 Osteopenia World Health Organization criteria for BMD impression classify patients as: Normal (T-score at or above -1.0), Osteopenia (T-score between -1.0 and -2.5), or Osteoporosis (T-score at or below -2.5). 10-year Fracture Risk(1): Major Osteoporotic Fracture 20% Hip Fracture 4.5% Reported Risk Factors: [place] (), Neck BMD=0.659, BMI=25.4, previous fracture (1) FRAX(R) Version 3.08. Fracture probability calculated for an untreated patient. Fracture probability may be lower if the patient has received treatment. Previous Exams: Region Exam Age BMD T-score BMD Change BMD Change Date g/cm2 vs Baseline vs Previous AP Spine (L1-L4) 12/05/2024 79 1.116 0.6 0.193 (21.0%)# 0.193 (21.0%)# 03/09/2013 67 0.923 -1.1 Total Hip(Left) 12/05/2024 79 0.774 -1.4 0.049 (6.8%)# 0.003 (0.4%)# 12/04/2022 77 0.771 -1.4 0.046 (6.4%)# 0.001 (0.2%)# 12/14/2018 73 0.770 -1.4 0.045 (6.2%)# -0.018 (-2.3%) 10/23/2016 71 0.788 -1.3 0.063 (8.8%)# 0.063 (8.8%)# 03/09/2013 67 0.724 -1.8 Total Hip(Right) 12/05/2024 79 0.759 -1.5 -0.018 (-2.3%) -0.004 (-0.5%) 12/04/2022 77 0.763 -1.5 -0.014 (-1.8%) 0.035 (4.8%)* 12/14/2018 73 0.728 -1.8 -0.049 (-6.3%) -0.034 (-4.5%) 10/23/2016 71 0.762 -1.5 -0.015 (-1.9%) -0.015 (-1.9%) 03/09/2013 67 0.777 -1.4 *Denotes significance at 95% confidence level, LSC for AP Spine = 0.022 g/cm2, LSC for Total Hip = 0.027 g/cm2 # Denotes dissimilar scan types or analysis methods Clinical Information Provided by Patient: Has had a low trauma fracture Has used the following medications: Fosamax (i.e. alendronate), Prolia (i.e. denosumab), Vitamin D, Calcium Has the following medical conditions: Asthma or Emphysema Patient maximum height was 65 Menopause Age: 54 No regular weight bearing exercise Onset of menses at age 14 Number of children 0 Impression: The patient has low bone mass, based on the Right Femoral Neck T-score. The patient has an estimated ten-year risk of hip fracture of 4.5% and an estimated ten-year risk of major fracture of 20%, based on the WHO FRAX algorithm. The patient has risk factors, including: previous fracture. No significant bone loss was observed. Discussion: BONE DENSITY IS LOW AT ONE OR MORE SKELETAL SITES. THE PATIENT'S BMD AND CLINICAL RISK FACTORS CONTRIBUTE TO THIS PATIENT'S HIGH RISK OF FRACTURE. This patient's lowest T-score is low at one or more skeletal sites. It meets the World Health Organization's (WHO) criteria for ?low bone mass? (T-score between -1.0 and -2.5). The patient's 10-year risk of hip fracture and 10 year risk of a major osteoporotic fracture as calculated by FRAX exceeds the threshold where pharmacological therapy is recommended by the National Osteoporosis Foundation (NOF). However, all treatment decisions require clinical judgment and consideration of individual patient factors, including patient preferences, comorbidities, previous drug use, risk factors not captured in the FRAX model (e.g., frailty, falls, vitamin D deficiency, increased bone turnover, interval significant decline in bone density) and possible under or overestimation of fracture risk by FRAX. The patient should follow a healthful lifestyle (good nutrition with adequate calcium and vitamin D, and appropriate weight-bearing exercise). Follow-Up: Consider a repeat BMD and Vertebral Fracture Assessment (VFA) exam in 2 years or sooner if medically necessary, to reassess this patient's status. Reported by: DOMI on 12/05/2024 2:32:00 PM. Reviewed, dictated and finalized at location A.
--- OUTSIDE RECORDS SUMMARY | 2024-12-05 15:30 | XMS_ITS | Encounter Summary ---
Author Organization [facility] Healthcare Address [address] [place] [address] Care Team Providers Care Senior Electrical Project Manager Name Role Phone Marry Malin MD Primary Care Provider + Encounter Details Date Type Department Care Team (Late st Contact Info) Description 10/19/2024 Results Follow-Up [facility] Medical Group Cardiology [address] [address] [address] [place] [address] Kanwal Moore NP [address] [facility] [address] [facility] [address] [place] [address] Comprehensive metabolic panel Social History [...] on file 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
--- OUTSIDE RECORDS SUMMARY | 2024-12-05 15:30 | XMS_ITS | Clinical Summary ---
Author Organization [facility] [address] Address [address] [place] [address] Care Team Providers Care Police Academy Instructor Name Role Phone Marry Malin MD Primary Care Provider + Allergies Active Allergy Reactions Criticality Noted Date Comments Aspirin Stomach upset Low 08/30/2020 Codeine Stomach upset Low 11/07/2020 Iron Stomach upset Low 08/30/2020 Medications montelukast (SINGULAIR) 10 mg tablet Take 1 tablet (10 mg total) by mouth daily 1 Active ALPRAZolam (XANAX) 0.5 mg tablet Take 1 tablet (0.5 mg total) by mouth 2 (two) times a day 1 Active ergocalciferol (VITAMIN D) 50,000 unit capsule TAKE 1 CAPSULE BY MOUTH ONCE EVERY MONTH 1 Active polyethylene glycol (MIRALAX) 17 gram packet [...] ORAL) Take by mouth as needed Active sb-uu-BU-vit L-opprv-iazj-ze ax 200-15-150 mcg tablet Take by mouth Activ e multivit-minera q-krkl-sueewd tablet Take by mouth Active acetaminophen (TYLENOL) 325 mg tablet Take 500 mg by mouth every 6 (six) hours as needed Active guaiFENesin ER (MUCINEX) 600 mg 12 hr tablet Take 2 tablets (1,200 mg total) by mouth as needed Active FLUTICASONE PROPIONATE NASL Administer 2 sprays into affected nostril(s) daily as needed 2 Active Ferrocite 324 mg (106 mg iron) tablet Take 1 tablet by mouth daily 2 Active omeprazole (PriLOSEC) 40 mg capsule Take 1 capsule (40 mg total) by mouth daily 3 Active fluticasone furoate-vilante roL (BREO ELLIPTA) 200-25 mcg/dose diskus inhaler 4 Active amitriptyline (ELAVIL) 50 mg tablet Take 1 tablet (50 mg total) by mouth nightly at bedtime 4 Active metoprolol XL (TOPROL-XL) 50 mg extended release tabletIndicatio ns:Paroxysmal atrial flutter (HCC) TAKE 1 TABLET(50 MG) BY MOUTH EVERY MORNING 90 tablet 3 5 Active Xarelto 20 mg tablet TAKE 1 TABLET(20 MG) BY MOUTH DAILY WITH DINNER 90 tablet 3 5 Active cephalexin (KEFLEX) 500 mg capsule Take 1 capsule (500 mg total) by mouth 4 (four) times a day For 10 days 5 Active Active Problems Problem Noted Date Diagnosed Date 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 Cardiology [address] [facility] [address] [place] [address] José Miguel Keith MD SCAN - RADIOLOGY/IMAGING 10/23/2024 11:30 AM CDT Office Visit [facility] Cardiology [address] [place] [address] [address] [place] [phone] José Miguel Keith MD Paroxysmal atrial flutter (HCC) (Primary Dx); FDC 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; PVC's (premature ventricular contractions); Chronic anticoagulation 10/23/2024 Orders Only [facility] Health Information Management [address] [place] [phone] José Miguel Keith MD 10/19/2024 Results Follow-Up [facility] Medical 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 Gender Identity Female 08/30/2020 6:13 AM CDT [...] 08/02/2018, 05/25/2018 Medical Devices Implanted Type Area Malt Specifications Control Assistant Device Identifier Shelf Expiration Date Model / Serial / Lot [employer] Vascade Mvp 6-12fr Venous Closure [id number] - [id number] Implanted:Qty : 1 on 07/10/2022 by Cole Price MD at [facility] Collagen Right: Femoral Vein [employer] 03/05/2024 800-612C- 10U / / [id number] [employer] Vascade Mvp 6-12fr Venous Closure [id number] - [id number] Implanted:Qty : 1 on 07/10/2022 by Cole Price MD at [facility] Collagen Right: Femoral Vein [employer] 04/08/2024 800-612C- 10U / / [id number] 31C [employer] Vascade Mvp 6-12fr Venous Closure [id number] - [id number] Implanted:Qty : 1 on 07/10/2022 by Cole Price MD at [facility] Collagen Right: Femoral Vein [employer] 04/08/2024 800-612C- 10U / / [id number] 31C Procedures Procedure Name Priority Date/Time Associated Diagnosis Comments ELECTROCARDIOGRAM REPORT Routine 025 3:54 PM CDT Paroxysmal atrial flutter (HCC) buttermaker continuous churn 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 SCAN - RADIOLOGY/IMAGING 10/23/2024 from Last 3 Months Results * Electrocardiogram Report (10/23/2024 3:54 PM CDT) José Miguel Keith MD ECG ORDERABLES Final Res ult * SCAN - RADIOLOGY/IMAGING (10/23/2024) Anatomical Region Laterality Modality Other José Miguel Keith MD Final Res ult from Last 3 Months Insurance MEDICARE [facility] MEDICARE [facility] Care Teams Police Academy Instructor Relationship Specialty Start Date End Date Marry Malin MD PCP - General Family Medicine 04/15/22
--- OUTSIDE RECORDS SUMMARY | 2024-12-05 15:30 | XMS_ITS | Encounter Summary ---
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
== END 2024-12-05 13:49 | disposition home or self-care (01) ==
LOC: ANHFOHIMG 13:49
PROVIDERS: PCP Family Medicine; Visit Provider Student in an Organized Health Care Education/Training Program
DX: Z12.31 Encounter for screening mammogram for malignant neoplasm of breast (principal); M85.89 Other specified disorders of bone density and structure, multiple sites; Z78.0 Asymptomatic menopausal state
CPT/HCPCS: 77063; 77067; 77080

== ENCOUNTER 2024-12-21 12:08 | Outpatient (CLI) | payer MEDICARE, SELFPAY ==
--- NOTE | ~2024-12-21 | US_ITS ---
EXAMINATION: US pelvic complete w TV, 12/21/2024 12:18 CDT HISTORY: N93.9 - Abnormal uterine and vaginal bleeding, unspecified Comparison: None Technique: Rooney-scale and color Doppler images were obtained. Findings: Uterus: Uterus anteverted 8 4.5 x 1.5 x 2.5 cm. . Endometrium 1.2 mm, within the uterine cavity towards the fundus there is a filling defect measuring 4 x 4 x 5 mm without abnormal flow. Right Ovary:Right ovary not identified. Left Ovary: Left ovary 1.9 x 1.4 x 1.5 cm, no adnexal mass or abnormal flow. Free Fluid: None Impression: 1. Endometrial lesion. Neoplasm is not excluded. Tissue sampling recommended Reviewed, dictated and finalized at location P. Impression: 1. Endometrial lesion. Neoplasm is not excluded. Tissue sampling recommended
--- OUTSIDE RECORDS SUMMARY | 2024-12-21 12:10 | XMS_ITS | Encounter Summary ---
Author Organization [facility] Healthcare Address [address] [place] [address] Care Team Providers Care Bonderite Operator Name Role Phone Marry Malin MD Primary Care Provider + Encounter Details Date Type Department Care Team (Late st Contact Info) Description 10/19/2024 Results Follow-Up [facility] Medical Group Cardiology [address] [facility] [address] [place] [address] Kanwal Moore NP [address] [facility] [address] [place] [address] Comprehensive metabolic panel Social History [...] on file 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 Cardiac Catheterization Lab [address] [place] [phone] Jian Hussein MD [address] [place] [phone] [facility], [address] [address] Atrial fibrillation (HCC); Contraindication to anticoagulation therapy 01/08/2025 10:30 AM CDT - 01/08/2025 1:[address] [facility] Cardiac Catheterization Lab [address] [place] [phone] Jian Hussein MD [address] [facility] [id number] [place], [place] [id number] PERC TUUT CLOSE W/IMPLANT [id number] documented as of this encounter Visit Diagnoses Not on filedocumented in this encounter Care Teams Bonderite Operator Relationship Specialty Start Date End Date Marry Malin MD PCP - General Family Medicine 04/15/22 documented as of this encounter
--- OUTSIDE RECORDS SUMMARY | 2024-12-21 12:10 | XMS_ITS | Clinical Summary ---
Author Organization [facility] [place] [address] Address [address] [place] [address] Care Team Providers Care Elevator Tender Name Role Phone Marry Malin MD Primary [...] ORAL) Take by mouth as needed Active fh-bl-NM-vit Z-qkhdi-pfmb-z eax 200-15-150 mcg tablet Take by mouth Activ e multivit-sample examiner cr-kwwb-ikdjkr tablet Take by mouth Active acetaminophen (TYLENOL) 325 mg tablet Take 500 mg by mouth every 6 (six) hours as needed Active guaiFENesin ER (MUCINEX) 600 mg 12 hr tablet Take 2 tablets (1,200 mg total) by mouth as needed Active FLUTICASONE PROPIONATE NASL Administer 2 sprays into affected nostril(s) daily as needed 2 Active fluticasone furoate-vilant Jamari (BREO ELLIPTA) 200-25 mcg/dose diskus inhaler 4 [...] WITH DINNER 90 tablet 3 5 Active Ferrocite 324 mg (106 mg iron) tablet Take 1 tablet by mouth daily 2 12/07/19 25 Discontinu ed(Patient Reported) omeprazole (PriLOSEC) 40 mg capsule Take 1 capsule (40 mg total) by mouth daily 3 12/07/19 25 Discontinu ed(Patient Reported) cephalexin (KEFLEX) 500 mg capsule Take 1 capsule (500 mg total) by mouth 4 (four) times a day For 10 days 5 12/07/19 25 Discontinu ed(Patient Reported) Active Problems Problem Noted Date Diagnosed Date Atrial fibrillation 12/06/2024 Contraindication to anticoagulation therapy 11/20 care home 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 09/11/2022 Atrial flutter 07/10/2022 Typical atrial flutter 06/05/2022 Overview (06/05/2022): Added automatically from request for surgery [id number] PVC's (premature ventricular contractions) 10/08 Dyspnea on exertion 10/08/2021 Paroxysmal tachycardia, unspecified (CMS/HCC) (H CC) 10/08/2021 Chronic anticoagulation 10/08/2021 Paroxysmal atrial flutter 10/08/2021 Encounters Date Type Department Care Team Description 12/18/2024 6:52 AM CDT - 12/18/2024 11:59 PM CDT Hospital Encounter [facility] [address] [place] [id number] Paroxysmal atrial flutter (HCC); History of fall; Gait instability Discharge Disposition: Discharge to home or self care 12/06/2024 11:15 AM CDT Office Visit [facility] Cardiology [address] [place] [address] [place] [phone] Jian Hussein MD Paroxysmal atrial flutter (HCC) (Primary Dx); Chronic anticoagulation; History of fall; Gait instability 12/06/2024 Orders Only [facility] Cardiac Catheterization Lab [address] [place] [phone] Jian Hussein MD Atrial fibrillation (HCC) (Primary Dx); Contraindication to anticoagulation therapy 10/27/2024 Results Follow-Up [facility] Cardiology [address] [place] [address] [place] [phone] José Miguel Keith MD SCAN - RADIOLOGY/IMAGING 10/23/2024 11:30 AM CDT Office Visit [facility] Cardiology [address] [place] [address] [place] [phone] José Miguel Keith MD Paroxysmal atrial flutter (HCC) (Primary Dx); care home 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; PVC's (premature ventricular contractions); Chronic anticoagulation 10/23/2024 Orders Only [facility] [facility] [address] [place] [phone] José Miguel Keith MD 10/19/2024 Results Follow-Up [facility] Cardiology [address] [place] [address] [address] [place] [phone] Kanwal Moore NP Comprehensive metabolic panel 10/19/2024 Orders Only [facility] Cardiology [address] [place] [address] Provider, MD Lillian from Last 3 Months [...] on file 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 Gender Identity Female 08/30/2020 6:13 AM CDT Sexual Orientation Straight 08/30/2020 6: 13 AM CDT Obstetrics History Last Filed Vital Signs Vital Sign Reading Time Taken Comments Blood Pressure 130/78 12/06/2024 11:20 AM CDT Pulse 74 12/06/2024 11:20 AM CDT Temperature 36.3 C (97.3 F) 07/10/2022 11:15 AM CDT Respiratory Rate 16 06/03/2023 9:23 AM CDT Oxygen Saturation 96% 12/06/2024 11:20 AM CDT Inhaled Oxygen Concentration - - Weight 64.6 kg (142 lb 8 oz) 12/06/2024 11:20 AM CDT Height 160 cm (5' 3) 12/06/2024 11:20 AM CDT Body Mass Index 25.24 12/06/2024 11:20 AM CDT Plan of Treatment Upcoming Encounters Date Type Department Care Team (Latest Contact Info) Description 01/08/2025 10:30 AM CDT Hospital Encounter [facility] Cardiac Catheterization Lab [address] [place] [address] Jian Hussein MD [address] [place] [address], [address] [id number] Atrial fibrillation (HCC); Contraindication to anticoagulation therapy 01/08/2025 10:30 AM CDT - 01/08/2025 1:00 PM CDT Surgery [facility] Cardiac [facility]atheter[facility] Lab [address] [place] [address] Jian Hussein MD [address] [place] [address], [facility] [address] [place] [address] PERC TUTU CLOSE W/IMPLANT [id number] Health Maintenance Due Date Last Done Comments Depression Screening 1945 Hepatitis C Screening 1945 Osteoporosis Screening-Bone Density Scan 1945 Hepatitis B Screening 07/30/1965 Well Visit 65+ 07/30/2012 DTaP/Tdap/Td Vaccine (2 - Td or Tdap) 02/11/2022 02/12/2012, 03/01/2002 Fall Risk Assessment 07/11/2023 07/10/2022 Influenza Vaccine (#1) 2024 , 02/07/2020, 11/16/2018, Additional history exists Pneumococcal vaccine 65+ Completed 06/04/2015, 04/2014 Zoster Vaccine Completed 08/02/2018, 08/2018, 03/08/2017, Additional history exists Medical Devices Implanted Type Area Belt Maker Device Identifier Shelf Expiration Date Model / Serial / Lot [employer] Vascade Mvp 6-12fr Venous Closure [id number] - [id number] Implanted:Qty : 1 on 07/10/2022 by Cole Price MD at [facility] Collagen Right: Femoral Vein [employer] 03/05/2024 [id number]- [id number] / / [id number] [employer] Vascade Mvp 6-12fr Venous Closure [id number] - [id number] Implanted:Qty : 1 on 07/10/2022 by Cole Price MD at [facility] Collagen Right: Femoral Vein [employer] 04/08/2024 800-612C- [id number] / / [id number] [employer] Vascade Mvp 6-12fr Venous Closure [id number] - [id number] Implanted:Qty : 1 on 07/10/2022 by Cole Price MD at [facility] Collagen Right: Femoral Vein [employer] 04/08/2024 [id number] [id number] / / [id number] Procedures Procedure Name Priority Date/Time Associated Diagnosis Comments CT HEART MORPHOLOGY W CONTRAST Schedule Routine, Read Routine (OP Routine) 12/18/2024 7:31 AM CDT Paroxysmal atrial flutter (HCC) History of fall Gait instability ELECTROCARDIOGRAM REPORT Routine 12/06/2024 3:11 PM CDT Paroxysmal atrial flutter (HCC) ELECTROCARDIOGRAM REPORT Routine 10/23/2024 3:54 PM CDT Paroxysmal atrial flutter (HCC) care home 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 SCAN - RADIOLOGY/IMAGING 10/23/2024 from Last 3 Months Results * CT Heart Morphology W Contrast (12/18/2024 7:31 AM CDT) Anatomical Region Laterality Modality Chest N/A Computed Tomogra phy 12/18/2024 10:3 1 AM CDT Impressions 12/19/2024 12:52 AM CDT 1. Left atrial appendage measurements for placement of occlusion device as described above. 2. No evidence of left atrial appendage thrombus. 3. Narrowing of the trachea with bowing of the posterior membrane suspicious for tracheomalacia. Findings could be further evaluated with high-resolution chest CT if clinically indicated. Dictated by: Matti Mcqueen M.D. The radiology attending physician has personally reviewed this study, and had reviewed and/or edited this written report and agrees with it. Electronically signed by: Adolph Fair M.D. Narrative 12/19/2024 12:52 AM CDT EXAMINATION: CT HEART MORPHOLOGY W CONTRAST HISTORY: Paroxysmal atrial flutter. Measurements in preparation for left atrial appendage occlusion device placement. TECHNIQUE: Heart CT performed during administration of 96 mL of Optiray 350, intravenously per pulmonary vein protocol. Images were transferred to an independent workstation for additional 3D post-processing. COMPARISON: None FINDINGS: Left atrium measurements: * Diameter (during atrial diastole): 39 mm Left atrial appendage: * Depth: 16.6 mm * Length: 56.3 mm * Ostium measurements: Area 3 cm2; circumference 6.6 cm; 24.6 mm length x 15.3 mm width * Landing zone measurements: Area 3 cm2; circumference 6.3 cm; 21.1 mm length x 19.5 mm width * Shape: Chicken wing There is no evidence of left atrial appendage thrombus. Interatrial septum measures 1.7 mm thick and is free of device or thrombus. Esophagus lies immediately posterior to the Right Inferior pulmonary vein. Other findings: No pericardial effusion. Normal caliber of the aorta and main pulmonary artery. Multinodular thyroid the largest arising from the isthmus measures 1.1 cm. No supraclavicular, axillary or mediastinal lymphadenopathy. Bowing of posterior wall of trachea. No aggressive osseous lesion. Procedure Note Adolph Fair MD PhD - 12/19/2024 EXAMINATION: CT HEART MORPHOLOGY W CONTRAST HISTORY: Paroxysmal atrial flutter. Measurements in preparation for left atrial appendage occlusion device placement. TECHNIQUE: Heart CT performed during administration of 96 mL of Optiray 350, intravenously per pulmonary vein protocol. Images were transferred to an independent workstation for additional 3D post-processing. COMPARISON: None FINDINGS: Left atrium measurements: * Diameter (during atrial diastole): 39 mm Left atrial appendage: * Depth: 16.6 mm * Length: 56.3 mm * Ostium measurements: Area 3 cm2; circumference 6.6 cm; 24.6 mm length x 15.3 mm width * Landing zone measurements: Area 3 cm2; circumference 6.3 cm; 21.1 mm length x 19.5 mm width * Shape: Chicken wing There is no evidence of left atrial appendage thrombus. Interatrial septum measures 1.7 mm thick and is free of device or thrombus. Esophagus lies immediately posterior to the Right Inferior pulmonary vein. Other findings: No pericardial effusion. Normal caliber of the aorta and main pulmonary artery. Multinodular thyroid the largest arising from the isthmus measures 1.1 cm. No supraclavicular, axillary or mediastinal lymphadenopathy. Bowing of posterior wall of trachea. No aggressive osseous lesion. IMPRESSION: 1. Left atrial appendage measurements for placement of occlusion device as described above. 2. No evidence of left atrial appendage thrombus. 3. Narrowing of the trachea with bowing of the posterior membrane suspicious for tracheomalacia. Findings could be further evaluated with high-resolution chest CT if clinically indicated. Dictated by: Matti Mcqueen M.D. The radiology attending physician has personally reviewed this study, and had reviewed and/or edited this written report and agrees with it. Electronically signed by: Adolph Fair M.D. us Jian Hussein MD IMG CT PROCEDURES Final Result * Electrocardiogram Report (12/06/2024 3:11 PM CDT) us Jian Hussein MD ECG ORDERABLES Final Result * Electrocardiogram Report (10/23/2024 3:54 PM CDT) us José Miguel Keith MD ECG ORDERABLES Final Res ult * SCAN - RADIOLOGY/IMAGING (10/23/2024) Anatomical Region Laterality Modality Other us José Miguel Keith MD Final Res ult from Last 3 Months Insurance MEDICARE PENDING SALE TO [facility] MEDICARE BLUE CROSS MEDICARE SUPPLEMENT Care Teams Elevator Tender Relationship Specialty Start Date End Date Marry Malin MD PCP - General Family Medicine 04/15/22
--- OUTSIDE RECORDS SUMMARY | 2024-12-21 12:10 | XMS_ITS | Encounter Summary ---
Author Organization [facility] Healthcare Address [address] [place] [address] Care Team Providers Care Compound Machine Operator Name Role Phone Marry Malin MD Primary Care Provider + Encounter Details Date Type Department Care Team (Late st Contact Info) Description 10/27/2024 Results Follow-Up [facility] Medical [facility] Cardiology [address] [facility] [address] [place] [address] José Miguel Keith MD [address] [facility] [address] [place] [address] [facility] [address], [place] [address] [place] [address] SCAN - RADIOLOGY/IMAGING Social History Tobacco Use [...] on file 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 Gender Identity Female 08/30/2020 6:13 AM CDT Sexual Orientation Straight 08/30/2020 6: 13 AM CDT documented as of this encounter Plan of Treatment Upcoming Encounters Date Type Department Care Team (Latest Contact Info) Description 01/08/2025 10:30 AM CDT Hospital Encounter [facility] Cardiac Catheterization Lab [address] [place] [phone] Jian Hussein MD [address] [facility] [address], [place] [address] [place] [address] Atrial fibrillation (HCC); Contraindication to anticoagulation therapy 01/08/2025 10:30 AM CDT - 01/08/2025 1:00 PM CDT Surgery [facility] Cardiac Catheterization Lab [address] [place] [id number] Jian Hussein MD [address] [facility] [address] [facility] [address] [place] [address] PERC TUTU CLOSE W/IMPLANT [id number] documented as of this encounter Visit Diagnoses Not on filedocumented in this encounter Care Teams Compound Machine Operator Relationship Specialty Start Date End Date Marry Malin MD PCP - General Family Medicine 04/15/22 documented as of this encounter
== END 2024-12-21 12:09 | disposition home or self-care (01) ==
PROVIDERS: PCP Family Medicine; Visit Provider Nurse Practitioner Obstetrics & Gynecology
DX: N93.9 Abnormal uterine and vaginal bleeding, unspecified (principal)
CPT/HCPCS: 76830; 76856

== ENCOUNTER 2025-02-01 02:12 | Day surgery (SDC) | payer MEDICARE, SELFPAY ==
[2025-01-19 14:50] VITALS: BMI 26.1
--- NOTE | 2025-01-19 15:04 | PC.NURSE ---
[facility] has started construction of its new state of the art ER which will open Spring 2026. With this, we anticipate parking may be a challenge for some our surgical patients and families. Parking spaces are limited but are available for all Surgical, obstetrics, and ER patients sharing this lot. If you arrive and find you are having a hard time finding a parking space, please note that we understand the challenges, please drive around the hospital and park near Hospital Entrance 1. When you enter this entrance, you can ask a volunteer to direct or take you back to the surgical waiting area to check in. We appreciate everyone?s understanding of these expected challenges while we build for your future. Report to the Outpatient Waiting Room, entrance under the green pavilion located off [address], at time __06:00am on date __02/01/25 . Planned Procedure Time: __07:30am .? Time changes happen often and if your time is changed the preop area will call you the afternoon before. - You and your visitor will be asked to self-screen and do not enter if you have any COVID symptoms. Please call surgeon if you need to reschedule. - A mask is optional within the hospital at this time. Patients may have clear liquids (water, carbonated beverages, clear teas, apple juice) until 3 hours prior to surgery with a maximum of 20 ounces. - No food from midnight until time of surgery and no smoking, or chewing tobacco (or any form of nicotine). No chewing gum, candy or mints. (04:30am) Take only the following medications with a SIP of water on the morning of surgery: ___Metoprolol and Breo Inhaler DO NOT STOP ANY OF YOUR OTHER PRESCRIPTION MEDICATIONS PRIOR TO SURGERY EXCEPT THE FOLLOWING Hold all vitamins and supplements for 3 days per anesthesiologist. Medications to discontinue per physician ____Awaiting Dr Burdick instructions on Clopidogrel/Plavix - their office to notify pt Date to take last dose Pending on Dr. Please no make-up, nail ukrainian, hairspray, perfume, deodorant, or body powder the day of surgery.? No jewelry (including any body piercings) or valuables the day of surgery, leave them at home.? Please take a shower or bath the night before, or the morning of, surgery with an antibacterial soap.? Wear comfortable, loose fitting clothing.? - Jewelry must be removed prior to entering the operating room.? Rings and piercings that are not removed may be cut off. - The hospital will not accept responsibility for valuables.? - Please leave all valuables, including medications, at home the day of surgery. If you are going home after surgery, a licensed refrigerated national truck driver must drive you home.? - NO public transportation without another adult if you receive anesthesia. - We recommend that an adult stay with you for 24 hours following discharge. - We also recommend that you do not drive, make important decision, drink alcoholic beverages, or take any drugs that were not prescribed by your health care provider for at least 24 hours after your discharge time. Follow any additional instructions given to you from your surgeon. Telephone instructions given to _Patient and asked if any additional questions and then verbalized understanding. Patient advised to call surgeon office or pre surgery nurse liaison [phone] if any additional questions.
--- OUTSIDE RECORDS SUMMARY | 2025-02-01 02:15 | XMS_ITS | Clinical Summary ---
Author Organization [facility] [address] Address [address] [place] [address] Care Team Providers Care Process Coach Name Role Phone Marry Malin MD Primary Care Provider + Allergies Active Allergy Reactions Criticality Noted Date Comments Aspirin Stomach upset Low 08/30/2020 Codeine Stomach upset Low 11/07/2020 Hydrochlorothiazide Unknown 05/27/2021 Iron Stomach upset Low 08/30/2020 Modafinil Other (See comments) 05/27/2021 Pregabalin Other (See comments) 05/27/2021 Triamterene Unknown 05/27/2021 Medications montelukast (SINGULAIR) 10 mg tablet Take [...] 2 (two) times a day Active vitamin E (AQUASOL E) 400 unit capsule 1 capsule (400 Units total) every other day Active lysine 500 mg tablet Take 1 tablet (500 mg total) by mouth daily Active calcium carbonate (CALCIUM 500 ORAL) Take 600 mg by mouth 2 (two) times a day after breakfast and dinner Active simethicone (GAS-X ORAL) Take by mouth as needed Active multivit-yarn skeins examiner wg-uwnc-mlpfrs tablet Take by mouth Active acetaminophen (TYLENOL) 325 mg tablet Take 500 mg by mouth every 6 (six) hours as needed Active guaiFENesin ER (MUCINEX) 600 mg 12 hr tablet Take 2 tablets (1,200 mg total) by mouth as needed Active FLUTICASONE PROPIONATE NASL Administer 2 sprays into affected nostril(s) daily as needed 04/28/19 22 Active fluticasone furoate-vilant Jamari (BREO ELLIPTA) 200-25 mcg/dose diskus inhaler 08/15/19 24 Active amitriptyline (ELAVIL) 50 mg tablet Take 1 tablet (50 mg total) by mouth nightly at bedtime 01/24/20 24 Active metoprolol XL (TOPROL-XL) 50 mg extended release tabletIndicati ons:Paroxysmal atrial flutter (HCC) TAKE 1 TABLET(50 MG) BY MOUTH EVERY MORNING 90 tablet 3 04/17/19 25 Active estradioL (ESTRACE) 0.01 % (0.1 mg/gram) vaginal cream INSERT 1 APPLICATORFUL VAGINALLY DAILY FOR 14 DAYS 11/30/19 25 Active albuterol HFA (PROVENTIL HFA,VENTOLIN HFA,PROAIR HFA) 90 mcg/actuation inhaler 2 puffs 08/03/19 21 Active ferrous fumarate 324 mg (106 mg iron) tablet Take by mouth Act felice calcium carbonate (TUMS) 500 mg (200 mg elemental calcium) chewable tablet Take 1 tablet/chew tab (500 mg total) by mouth daily Active pyridoxine (VITAMIN B-6) 100 mg tablet Take 1 tablet (100 mg total) by mouth daily Active vitamin A-vitamin C-vit E-min tablet Take by mouth Active clopidogreL (PLAVIX) 75 mg tabletIndicati ons:coronary artery disease Take 1 tablet (75 mg total) by mouth daily 30 tablet 11 01/11/20 25 026 Active Xarelto 20 mg tablet TAKE 1 TABLET(20 MG) BY MOUTH DAILY WITH DINNER 90 tablet 3 07/21/19 25 025 Discontin ued(Stop Taking at Discharge ) Active Problems Problem Noted Date Diagnosed Date Septal defect, atrial 01/08/2025 At high risk for bleeding 01/08/2025 PAF (paroxysmal atrial fibrillation) 12/06/2024 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 09/11/2022 Atrial flutter 07/10/2022 Typical atrial flutter 06/05/2022 Overview (06/05/2022): Added automatically from request for surgery [id number] PVC's (premature ventricular contractions) 10/08 Dyspnea on exertion 10/08/2021 Paroxysmal tachycardia, unspecified (CMS/HCC) (H CC) 10/08/2021 Chronic anticoagulation 10/08/2021 Paroxysmal atrial flutter 10/08/2021 Encounters Date Type Department Care Team Description 01/19/2025 Telephone [facility] Cardiology [address] [place] [address] [place] [phone] Jian Macdonald MD 01/18/2025 Results Follow-Up [facility] Cardiology [address] [place] [address] [place] [address] [place] [phone] Jian Macdonald MD Transthoracic Echo (TTE) Limited/Followup 01/16/2025 2:00 PM CDT Ancillary Procedure [facility] Cardiology [address] [place] [address] [place] [phone] Pericardial effusion 01/09/2025 Orders Only [facility] Cardiology at [address] [place] [phone] Consuelo Mathew MA Pericardial effusion (Primary Dx) 01/09/2025 Telephone [facility] Cardiology [address] [place] [address] [place] [address] [place] [phone] Batsheva Marquez NP 01/08/2025 11:04 AM CDT Anesthesia Event [facility] Cardiac Catheterization Lab [address] [place] [address] Candida Luis MD Barnhart, Lynlee Jo, NP 01/08/2025 10:30 AM CDT - 01/08/2025 1:00 PM CDT Surgery [facility] Cardiac Catheterization Lab [address] [place] [address] Jian Macdonald MD PERC TUTU CLOSE W/IMPLANT [id number] 01/08/2025 7:36 AM CDT - 01/09/2025 12:22 PM CDT Hospital Encounter [address] [address] Jian Macdonald MD PAF (paroxysmal atrial fibrillation) [I48.0] (Primary Dx); Atrial fibrillation (HCC); Contraindication to anticoagulation therapy; At high risk for bleeding [Z91.89] Discharge Disposition: Discharge to home or self care 12/26/2024 10:45 AM CDT Pre-Admission Testing [facility] Pre Anesthesia Testing [address] [place] [address] 12/18/2024 6:52 AM CDT - 12/18/2024 11:59 PM CDT Hospital Encounter [facility] Imaging and Radiology [address] [place] [address] Paroxysmal atrial flutter (HCC); History of fall; Gait instability Discharge Disposition: Discharge to home or self care 12/06/2024 11:15 AM CDT Office Visit [facility] Cardiology [address] [place] [address] Jian Macdonald MD Paroxysmal atrial flutter (HCC) (Primary Dx); Chronic anticoagulation; History of fall; Gait instability 12/06/2024 Orders Only [facility] Cardiac Catheterization Lab [address] [place] [address] Jian Macdonald MD Atrial fibrillation (HCC) (Primary Dx); Contraindication to anticoagulation therapy from Last 3 Months Surgical History Surgery Date Site/Laterality Comments CHOLECYSTECTOMY BACK SURGERY lumbar, ruptured disc APPENDECTOMY CARPAL TUNNEL RELEASE Bilateral CATARACT EXTRACTION 2017 - 2017 ULNAR NERVE TRANSPOSITION Right TRIGGER FINGER RELEASE multiple IMPLANTABLE CARDIAC DEVICE 01/08/2025 N/A Procedure: PERC TUTU CLOSE W/IMPLANT [id number]; Surgeon: Jian Macdonald MD; Location: CARDIAC PROGRAM THERAPIST; Service: Cardiovascular; Laterality: N/A; Medical devices from this surgery are in the Medical Devices section. CARDIAC ELECTROPHYSIOLOGY PROCEDURE 01/08/2025 N/A Procedure: INTRACARDIAC ECHOCARDIOGRAM (+) [id number]; Surgeon: Jian Macdonald MD; Location: CARDIAC PROGRAM THERAPIST; Service: Cardiovascular; Laterality: N/A; Medical devices from this surgery are in the Medical Devices section. Medical History Medical History Date Comments Fibromyalgia Seasonal allergies Asthma Atrial flutter (HCC) Rapid heart rate Cardiac rhythm disturbance Sinusitis Anemia Acid indigestion Gallstones Hypertension Bilateral cataracts GERD (gastroesophageal reflux disease) Anxiety Osteoporosis Peptic ulceration Motion sickness Arthritis Chronic bronchitis (HCC) Heart disease Emphysema of lung PVC's (premature ventricular contractions) Dyspnea on exertion Paroxysmal tachycardia, unspecified (HCC) Paroxysmal atrial flutter (HCC) Typical atrial flutter (HCC) Chronic anticoagulation Contraindication to anticoagulation therapy Vertigo Syncope couple years ago Family History Medical History Relation Name Comments [...] Packs/Day Years Used Date Smoking Tobacco: Never Passive Smoke Exposure: Past Smokeless Tobacco: Never Tobacco Cessation:Counseling Given: Not Answered Alcohol Use Standard Drinks/Week Comments Never 0 (1 standard drink = 0.6 oz pur e alcohol) AUDIT-C Answer Date Recorded Frequency of Alcohol Consumption Not on file 01/08/2025 Q2: How many drinks containi ng alcohol do you have on a typical day when you are drinking? Patient does not drink Frequency of Binge Drinking Not on file 12/21 Personal Safety Answer Date Recorded Have you ever been in or are you currently in a harmful physical or emotional relationship or is someone making you feel afraid or unsafe? 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 Gender Identity Female 08/30/2020 6:13 AM CDT Sexual Orientation Straight 08/30/2020 6: 13 AM CDT Last Filed Vital Signs Vital Sign Reading Time Taken Comments Blood Pressure 123/56 01/09/2025 7:49 AM CDT Pulse 79 01/09/2025 7:49 AM CDT Temperature 36.9 C (98.4 F) 01/09/2025 7:49 AM CDT Respiratory Rate 16 01/09/2025 7:49 AM CDT Oxygen Saturation 99% 01/09/2025 7:49 AM CDT Inhaled Oxygen Concentration - - Weight 64.9 kg (143 lb) 01/08/2025 8:03 AM CDT Height 158.8 cm (5' 2.5) 01/08/2025 8:03 AM CDT Body Mass Index 25.74 01/08/2025 8:03 AM CDT Plan of Treatment Health Maintenance Due Date Last Done Comments Depression Screening 1945 Hepatitis C Screening 1945 Osteoporosis Screening-Bone Density Scan 1945 Hepatitis B Screening 07/30/1965 Well Visit 65+ 07/30/2012 DTaP/Tdap/Td Vaccine (2 - Td or Tdap) 02/11/2022 02/12/2012, 03/01/2002 Influenza Vaccine (#1) 2024 , 02/07/2020, 11/16/2018, Additional history exists Fall Risk Assessment 01/09/2026 01/09/2025 Pneumococcal vaccine 65+ Completed 06/04/2015, 0 04/2014 Zoster Vaccine Completed 08/02/2018, 08/2018, 03/08/2017, Additional history exists Medical Devices Implanted Type Area Division Merchandise Manager Device Identifier Shelf Expiration Date Model / Serial / Lot [employer] Vascade Mvp 6-12fr Venous Closure [id number] - [id number] Implanted:Qty: 1 on 07/10/2022 by Cole Price MD at [facility] Right: Femoral Vein [employer] 03/05/2024 [id number] [id number] / / [id number] [employer] Vascade Mvp 6-12fr Venous Closure [id number] - [id number] Implanted:Qty: 1 on 07/10/2022 by Cole Price MD at [facility] Collagen Right: Femoral Vein [employer] 04/08/2024 [id number] [id number] / / [id number] [employer] Vascade Mvp 6-12fr Venous Closure [id number] - [id number] Implanted:Qty: 1 on 07/10/2022 by Cole Price MD at [facility] Coll[employer] Right: Femoral Vein [employer] 04/08/2024 [id number] [id number] / / [id number] [employer] System Closure Repair Femoral Artery Suture Mediated Perclose Prostyle 26944-68 - [id number] Implanted:Qty: 1 on 01/08/2025 by Jian Macdonald MD at [facility] [employer] 10/19/2026 [id number] / / [id number] [employer] System Closure Repair Femoral Artery Suture Mediated Perclose Prostyle 41878-44 - [id number] Implanted:Qty: 1 on 01/08/2025 by Jian Macdonald MD at [facility] [employer] 10/19/2026 [id number] / / [id number] [employer] System Closure Repair Femoral Artery Suture Mediated Perclose Prostyle 63811-63 - [id number] Implanted:Qty: 1 on 01/08/2025 by Jian Macdonald MD at [facility] [employer] 10/19/2026 [id number] / / [id number] [employer] Percutaneous Transcatheter Amplatzer Amulet 22mm [id number] - [id number] Implanted:Qty: 1 on 01/08/2025 by Jian Macdonald MD at [facility] [employer] 06/19/2029 [id number] / / [id number] Procedures Procedure Name Priority Date/Time Associated Diagnosis Comments TRANSTHORACIC ECHO (TTE) LIMITED/FOLLOW UP W LTD DOPPLER/CF WO CONTRAST Routine 01/16/2025 2:44 PM CDT Pericardial effusion XR CHEST 1 VIEW IP Routine 01/09/2025 9:49 AM CDT ECG 12-LEAD Routine 01/09/2025 7:21 AM CDT TRANSTHORACIC ECHO (TTE) LIMITED/FOLLOW UP W LTD DOPPLER/CF WO CONTRAST Routine 01/09/2025 7:16 AM CDT EGFR Routine 01/09/2025 5:24 AM CDT DIFFERENTIAL AUTO Routine 01/09/2025 5:24 AM CDT CBC WITH AUTO DIFFERENTIAL Routine 01/09/2025 5:24 AM CDT MAGNESIUM Routine 01/09/2025 5:24 AM CDT BASIC METABOLIC PANEL Routine 01/09/2025 5:24 AM CDT APTT Routine 01/08/2025 5:50 PM CDT PROTIME-INR Routine 01/08/2025 2:41 PM CDT INTRACARDIAC ECHOCARDIOGRAM Routine 01/08/2025 12:35 PM CDT Atrial fibrillation (HCC) Contraindication to anticoagulation therapy PERC TUTU CLOSURE W/IMPLANT (WATCHMAN) [id number] Routine 01/08/2025 12:35 PM CDT Atrial fibrillation (HCC) Contraindication to anticoagulation therapy POCT ACTIVATED CLOTTING TIME, HIGH RANGE Routine 01/08/2025 12:07 PM CDT POCT ACTIVATED CLOTTING TIME, HIGH RANGE Routine 01/08/2025 12:02 PM CDT B CHECK SAMPLE STAT 01/08/2025 8:18 AM CDT PREPARE RBC STAT 01/08/2025 7:56 AM CDT ECG 12-LEAD Routine 12/26/2024 12:31 PM CDT EGFR Routine 12/26/2024 12:10 PM CDT DIFFERENTIAL AUTO Routine 12/26/2024 12:10 PM CDT APTT Routine 12/26/2024 12:10 PM CDT PROTIME-INR Routine 12/26/2024 12:10 PM CDT COMPREHENSIVE METABOLIC PANEL Routine 12/26/2024 12:10 PM CDT CBC WITH AUTO DIFFERENTIAL Routine 12/26/2024 12:10 PM CDT TYPE AND SCREEN Timed 12/26/2024 12:[address] HEART MORPHOLOGY W CONTRAST Schedule Routine, Read Routine (OP Routine) 12/18/2024 7:31 AM CDT Paroxysmal atrial flutter (HCC) History of fall Gait instability ELECTROCARDIOGRAM REPORT Routine 12/06/2024 3:11 PM CDT Paroxysmal atrial flutter (HCC) from Last 3 Months Results * TRANSTHORACIC ECHO (TTE) LIMITED/FOLLOW UP W LTD DOPPLER/CF WO CONTRAST (01/16/2025 2:44 PM CDT) Estimated EF 65-70 % CONS SCIMAGE Anatomical Region Laterality Modality Ultrasound 01/16/2025 2:06 PM CDT Narrative 01/16/2025 5:38 PM CDT [facility] Medical [facility] Cardiology [address] [facility] [address], [place] [address] [address] [facility] [address], [place] [address] P:[phone] P:[phone] Echocardiographic Report Patient Name: MELY MOODY A : 1945 Study Date: 01/16/2025 2:06:12 PM Sex: F Apple Turner: Hilda Du)(CT), [facility] Location: [place] Ref Provider: JIAN MACDONALD Height(Cm): 157 BSA: 1.68 Weight(Kg): 64.9 Heart Rate: 77 BP: 123 / 56 Quality: Good Order Provider: JIAN MACDONALD PROCEDURES: Echocardiographic Report: Limited Transthoracic Echocardiogram with Complete 2D and Doppler Examination. INDICATIONS: I31.39 Other pericardial effusion (noninflammatory). MEASUREMENTS: 2D/MM Value Range Doppler Value Range Estimated EF 65-70 % LVOT Peak Magdy 1.09 m/s [ 0.70 - 1.10 ] LVOT VTI 22.06 cm MV E Peak Magdy 1.21 m/s [ 0.60 - 1.30 ] MV A Peak Magdy 1.23 m/s [ 1.00 - 1.20 ] MV Decel Time 195 msec [ 104 - 258 ] Lateral E` 0.05 m/s [ 0.10 - 0.15 ] Septal E` 0.05 m/s [ 0.08 - 0.15 ] E` 0.05 m/s E/E` 25 2D/MM Value Range Doppler Value Range - FINDINGS: Interpretation Site: Exam was interpreted at [facility]. Left Ventricle: Normal left ventricular systolic function. No focal wall motion abnormalities. Normal left ventricular size. Mild concentric left ventricular hypertrophy. Impaired diastolic relaxation Grade I. Ejection Fraction is visually estimated to be 65-70 %. Right Ventricle: Normal right ventricular size. Normal right ventricular systolic function. Left Atrium: There is mild enlargement of left atrium. LAAO device seen in the left atrium. Right Atrium: The right atrium is normal in size. Atrial Septum: Normal atrial septum. Mitral Valve: Severe mitral annular calcification. Aortic Valve: Aortic valve not well visualized. Tricuspid Valve: Normal appearance of the tricuspid valve. Pulmonic Valve: Pulmonic valve not well visualized. Pericardium: Small pericardial effusion measuring 0.8-1.0 cm. Invagination of the right atrial free wall consistent with elevated pericardial pressure. Aorta: Normal aortic root. IVC: Normal size and normal respiratory collapse consistent with normal right atrial pressure (<5 mmHg). CONCLUSIONS: Normal left ventricular systolic function. No focal wall motion abnormalities. Normal left ventricular size. Mild concentric left ventricular hypertrophy. Impaired diastolic relaxation Grade I. Ejection Fraction is visually estimated to be 65-70 %. There is mild enlargement of left atrium. LAAO device seen in the left atrium. Severe mitral annular calcification. Small pericardial effusion measuring 0.8-1.0 cm. Invagination of the right atrial free wall consistent with elevated pericardial pressure. Normal sinus rhythm. Electronically Signed By: José Miguel Keith MD 01/16/2025 5:38:31 PM CDT Procedure Note José Miguel Keith MD - 01/16/2025 [facility] Medical [facility] Cardiology [address] [facility] [address], [place] [address] [address] [facility] [address], [place] [address] P:[phone] P:[phone] Echocardiographic Report Patient Name: MELY MOODY A : 1945 Study Date: 01/16/2025 2:06:12 PM Sex: F Apple Turner: Hilda Baird (Mio)(CT), [facility] Location: [facility] Provider: JIAN MACDONALD Height(Cm): 157 BSA: 1.68 Weight(Kg): 64.9 Heart Rate: 77 BP: 123 / 56 Quality: Good Order Provider: JIAN MACDONALD PROCEDURES: Echocardiographic Report: Limited Transthoracic Echocardiogram with Complete 2D and DopplerExamination. INDICATIONS: I31.39 Other pericardial effusion (noninflammatory). MEASUREMENTS: 2D/MM Value Range Doppler Value Range Estimated EF 65-70 % LVOT Peak Magdy 1.09 m/s [ 0.70 -1.10 ] LVOT VTI 22.06 cm MV E Peak Magdy 1.21 m/s [ 0.60 - 1.30 ] MV A Peak Magdy 1.23 m/s [ 1.00 - 1.20 ] MV Decel Time 195 msec [ 104 - 258 ] Lateral E` 0.05 m/s [ 0.10 - 0.15 ] Septal E` 0.05 m/s [ 0.08 - 0.15 ] E` 0.05 m/s E/E` 25 2D/MM Value Range Doppler Value Range - FINDINGS: Interpretation Site: Exam was interpreted at [facility]. Left Ventricle: Normal left ventricular systolic function. No focal wall motionabnormalities. Normal left ventricular size. Mild concentric left ventricular hypertrophy.Impaired diastolic relaxation Grade I. Ejection Fraction is visually estimated to be 65-70%. Right Ventricle: Normal right ventricular size. Normal right ventricular systolicfunction. Left Atrium: There is mild enlargement of left atrium. LAAO device seen in the leftatrium. Right Atrium: The right atrium is normal in size. Atrial Septum: Normal atrial septum. Mitral Valve: Severe mitral annular calcification. Aortic Valve: Aortic valve not well visualized. Tricuspid Valve: Normal appearance of the tricuspid valve. Pulmonic Valve: Pulmonic valve not well visualized. Pericardium: Small pericardial effusion measuring 0.8-1.0 cm. Invagination of the rightatrial free wall consistent with elevated pericardial pressure. Aorta: Normal aortic root. IVC: Normal size and normal respiratory collapse consistent with normal rightatrial pressure (<5 mmHg). CONCLUSIONS: Normal left ventricular systolic function. No focal wall motionabnormalities. Normal left ventricular size. Mild concentric left ventricular hypertrophy.Impaired diastolic relaxation Grade I. Ejection Fraction is visually estimated to be 65-70%. There is mild enlargement of left atrium. LAAO device seen in the leftatrium. Severe mitral annular calcification. Small pericardial effusion measuring 0.8-1.0 cm. Invagination of the rightatrial free wall consistent with elevated pericardial pressure. Normal sinus rhythm. Electronically Signed By: José Miguel Keith MD 01/16/2025 5:38:31 PM CDT Jian Macdonald MD CV ECHO PROCEDURES Final Result * XR Chest 1 View (01/09/2025 9:49 AM CDT) Anatomical Region Laterality Modality Body, Chest N/A Computed Radiogr aphy 01/09/2025 10:0 3 AM CDT Impressions 01/09/2025 10:03 AM CDT No active disease. Electronically signed by: Linn Welsh M.D. Narrative 01/09/2025 10:03 AM CDT EXAMINATION: XR CHEST 1 VIEW HISTORY: The patient is a 79-year-old female who presents with shortness of breath. TECHNIQUE: AP portable view of the chest. FINDINGS: Lungs clear. Cardiovascular structures unremarkable. Procedure Note Linn Welsh MD - 01/09/2025 EXAMINATION: XR CHEST 1 VIEW HISTORY: The patient is a 79-year-old female who presents with shortness of breath. TECHNIQUE: AP portable view of the chest. FINDINGS: Lungs clear. Cardiovascular structures unremarkable. IMPRESSION: No active disease. Electronically signed by: Linn Welsh M.D. Batsheva Marquez NP IMG XR PROCEDURES Final Result * TRANSTHORACIC ECHO (TTE) LIMITED/FOLLOW UP W LTD DOPPLER/CF WO CONTRAST (01/09/2025 7:16 AM CDT) EF Mod BP 55 % CONS SCIMAGE Anatomical Region Laterality Modality Ultrasound 01/09/2025 7:04 AM CDT Narrative 01/09/2025 8:17 AM CDT [address], [place] [address] Limited Echocardiogram Report Patient Name: MELY MOODY A : 1945 Study Date: 01/09/2025 7:04:33 AM Sex: F Tech: Location: [id number] Ref Provider: JIAN MACDONALD Height(Cm): 158 BSA: 1.69 Weight(Kg): 65 Heart Rate: 88 BP: 119 / 88 Quality: Good Order Provider: JIAN MACDONALD PROCEDURES: Echocardiographic Report: Limited transthoracic echocardiogram with 2D and M-Mode. INDICATIONS: Post LAAO. MEASUREMENTS: 2D/MM Value Range EF Mod BP 55 % [ 54 - 74 ] 2D/MM Value Range - FINDINGS: Left Ventricle: Normal left ventricular systolic function with no focal wall motion abnormalities. Normal left ventricular size. Ejection fraction is measured at 55 %. Left Atrium: There is mild enlargement of left atrium. Right Ventricle: Normal right ventricular size. Normal right ventricular systolic function. Pericardium: Trivial pericardial effusion. CONCLUSIONS: Normal left ventricular systolic function with no focal wall motion abnormalities. Normal left ventricular size. Ejection fraction is measured at 55 %. Normal right ventricular size. Normal right ventricular systolic function. Trivial pericardial effusion. Electronically Signed By: Damaso Fonseca MD 01/09/2025 8:16:49 AM CDT Procedure Note Damaso Fonseca MD - 01/09/2025 [place] [address] Limited Echocardiogram Report Patient Name: MELY MOODY A : 1945 Study Date: 01/09/2025 7:04:33 AM Sex: F Tech: Location: [id number] Ref Provider: JIAN MACDONALD Height(Cm): 158 BSA: 1.69 Weight(Kg): 65 Heart Rate: 88 BP: 119 / 88 Quality: Good Order Provider: JIAN MACDONALD PROCEDURES: Echocardiographic Report: Limited transthoracic echocardiogram with 2D and M-Mode. INDICATIONS: Post LAAO. MEASUREMENTS: 2D/MM Value Range EF Mod BP 55 % [ 54 - 74 ] 2D/MM Value Range - FINDINGS: Left Ventricle: Normal left ventricular systolic function with no focal wall motionabnormalities. Normal left ventricular size. Ejection fraction is measured at 55 %. Left Atrium: There is mild enlargement of left atrium. Right Ventricle: Normal right ventricular size. Normal right ventricular systolicfunction. Pericardium: Trivial pericardial effusion. CONCLUSIONS: Normal left ventricular systolic function with no focal wall motionabnormalities. Normal left ventricular size. Ejection fraction is measured at 55 %. Normal right ventricular size. Normal right ventricular systolicfunction. Trivial pericardial effusion. Electronically Signed By: Damaso Fonseca MD 01/09/2025 8:16:49 AM CDT Jian Macdonald MD CV ECHO PROCEDURES Final Result * eGFR (01/09/2025 5:24 AM CDT) eGFR 64 >=60 mL/min/1. 73 m2 Comment: Interpretive Data Reference Interval Normal >/= 90 mL/min/1.73m2 Mildly decreased* 60 - 89 mL/min/1.73m2 Mildly to moderately decreased 45 - 59 mL/min/1.73m2 Moderately to severely decreased 30 - 44 mL/min/1.73m2 Severely decreased 15 - 29 mL/min/1.73m2 Kidney Failure < 15 mL/min/1.73m2 *Relative to young adult level Estimated glomerular filtration rate is determined by the 2020 CKD-EPI equation recommended by the National Kid[employer] (A Unifying Approach to GFR Estimation: Recommendations of the NKF-ASK Task Force on Reassessing the Inclusion of Race in Diagnosing Kidney Disease, JASN 2020). The CKD-EPI equation should not be used for patients with unstable renal function and has not been validated in children and those over 70. Current interpretive data was last reviewed 2021. Blood 01/09/2025 5:24 AM CDT 01/09/2025 5:40 AM CDT us Jian Macdonald MD LAB BLOOD ORDERABLES Final Resul t [facility] [id number] [address] [place] [address] * (ABNORMAL) Differential, auto (01/09/2025 5:24 AM CDT) Neutrophil abs 6.61(H) 1.50 - 6.50 K/cumm Imm gran abs 0.04 0.00 - 0.10 K/cumm [facility] Lymphocyte abs 1.26 0.80 - 3.30 K/cumm [facility] Monocyte abs 0.89(H) 0.20 - 0.80 K/cumm [facility] Eosinophil abs 0.08 0.00 - 0.50 K/cumm [facility] Basophil abs 0.05 0.00 - 0.10 K/cumm [facility] Neutrophil pct 74.0 % [facility] Comment: Interpretive Data Percent cell count reference ranges are not reported, since discordance with absolute values may lead to misinterpretation of CBC data. Current Interpretive Data was last revised on 2017. Imm gran pct 0.4 % [facility] Comment: Interpretive Data Percent cell count reference ranges are not reported, since discordance with absolute values may lead to misinterpretation of CBC data. Current Interpretive Data was last revised on 2017. Lymphocyte pct 14.1 % [facility] Comment: Interpretive Data Percent cell count reference ranges are not reported, since discordance with absolute values may lead to misinterpretation of CBC data. Current Interpretive Data was last revised on 2017. Monocyte pct 10.0 % [facility] Comment: Interpretive Data Percent cell count reference ranges are not reported, since discordance with absolute values may lead to misinterpretation of CBC data. Current Interpretive Data was last revised on 2017. Eosinophil pct 0.9 % [facility] Comment: Interpretive Data Percent cell count reference ranges are not reported, since discordance with absolute values may lead to misinterpretation of CBC data. Current Interpretive Data was last revised on 2017. Basophil pct 0.6 % [facility] Comment: Interpretive Data Percent cell count reference ranges are not reported, since discordance with absolute values may lead to misinterpretation of CBC data. Current Interpretive Data was last revised on 2017. Blood 01/09/2025 5:24 AM CDT 01/09/2025 5:40 AM CDT Jian Macdonald MD LAB BLOOD ORDERABLES Final Resul t Performing Organization Address City/State/[facility] Co de Phone Number [facility] [phone] [place] [address] * (ABNORMAL) CBC with auto differential (01/09/2025 5:24 AM CDT) WBC 8.93 3.80 - 9.90 K/cumm Hgb 10.3(L) 11.9 - 15.5 g/dL [facility] Hct 31.1(L) 35.6 - 45.5 % [facility] Plt 166 150 - 400 K/cumm [facility] MPV 10.5 9.1 - 12.3 fL [facility] RBC 3.32(L) 3.90 - 5.20 M/cumm [facility] MCV 93.7 81.3 - 96.4 fL [facility] MCH 31.0 27.1 - 33.3 pg [facility] MCHC 33.1 32.3 - 35.7 g/dL [facility] RDW CV 13.2 11.1 - 14.9 % [facility] RDW SD 45.6 35.7 - 48.1 fL [facility] NRBC abs 0.00 0.00 - 0.01 K/cumm [facility] Blood 01/09/2025 5:24 AM CDT 01/09/2025 5:40 AM CDT Jian Macdonald MD LAB BLOOD ORDERABLES Final Resul t Performing Organization Address City/State/[facility] Co de Phone Number [facility] [phone] [address] [facility] [employer] [place] [address] * Magnesium (01/09/2025 5:24 AM CDT) Pathologist [facility] Magnesium 1.7 1.4 - 2.5 mg/dL Blood 01/09/2025 5:24 AM CDT 01/09/2025 5:40 AM CDT Jian Macdonald MD LAB BLOOD ORDERABLES Final Resul t Performing Organization Address [facility] [[email or web address]] de Phone Number MARK [phone] [address] [facility] [employer] [place] [address] * Basic metabolic panel (01/09/2025 5:24 AM CDT) Pathologist [facility] Sodium 138 135 - 145 mmol/L Potassium, pl 3.8 3.3 - 4.9 mmol/L [facility] Chloride 104 97 - 110 mmol/L [facility] CO2 23 22 - 32 mmol/L [facility] Anion gap 11 2 - 15 mmol/L [facility] BUN 11 6 - 25 mg/dL [facility] Creatinine 0.92 0.60 - 1.10 mg/dL [facility] Glucose 107 70 - 199 mg/dL [facility] Comment: Interpretive Data Fasting glucose >/= 126 mg/dl is diagnostic for diabetes. Fasting is defined as no caloric intake for at least 8 hours. Fasting glucose between 100 mg/dl to 125 mg/dl is diagnostic of prediabetes. In a patient with classic symptoms of hyperglycemia or hyperglycemic crisis, a random glucose >/= 200 mg/dl is diagnostic for diabetes. In the absence of unequivocal hyperglycemia, results should be confirmed by repeat testing. The classification and Diagnosis of Diabetes Diabetes Care 202; 46: S19-S40. Current interpretive data was last revised 2022. Calcium 8.5 8.5 - 10.3 mg/dL [facility] Blood 01/09/2025 5:24 AM CDT 01/09/2025 5:40 AM CDT Jian Macdonald MD LAB BLOOD ORDERABLES Final Resul t Performing Organization Address [facility] Co de Phone Number MARK [phone] [address] [facility] [employer] [place] [address] * aPTT (01/08/2025 5:50 PM CDT) aPTT 29 26 - 38 sec Comment: Interpretive Data Heparin therapeutic range: 66.0 - 100.0 seconds. Range based on correlation with therapeutic heparin activity range of 0.3 - 0.7 Units/mL. Current interpretive data was last revised on 2022. Blood 01/08/2025 5:50 PM CDT 01/08/2025 6:00 PM CDT Jian Macdonald MD LAB BLOOD ORDERABLES Final Resul t Performing Organization Address [facility] [[email or web address]] de Phone Number MARK [phone] [address] [facility] [employer] [place] [address] * Protime-INR (01/08/2025 2:41 PM CDT) PT 12.7 10.2 - 13.5 sec INR 1.13 0.90 - 1.20 MARK Comment: Interpretive data Oral anticoagulant therapeutic ranges: Venous thromboembolism prophylaxis or treatment: 2.0-3.0 CARDIOLOGY Standard range: 2.0-3.0 High-intensity range: 2.5-3.5 Refer to indication-specific guidelines for appropriate target ranges for prosthetic heart valve replacement. Current interpretive data was last revised on 2019. Blood 01/08/2025 2:41 PM CDT 01/08/2025 2:51 PM CDT Jian Macdonald MD LAB BLOOD ORDERABLES Final Resul t Performing Organization Address [facility] Co de Phone Number MARK [phone] [address] [facility] [employer] [place] [address] * PERC TUTU CLOSURE W/IMPLANT (WATCHMAN) [id number], INTRACARDIAC ECHOCARDIOGRAM (01/08/2025 12:35 PM CDT) Anatomical Region Laterality Modality X-Ray Angiograph y Narrative 01/08/2025 12:52 PM CDT LEFT ATRIAL APPENDAGE OCCLUSION (LAAO) PROCEDURE REPORT DATE OF PROCEDURE: 01/08/25 INDICATION FOR PROCEDURE: Atrial fibrillation with contraindication for anticoagulation. BRIEF CLINICAL HISTORY: Mely Moody is a 79 y.o. female with paroxysmal atrial flutter, history of multiple DC cardioversion; history of attempted RFA on 07/10/2022; gait instability, history of fall. Patient with paroxysmal atrial flutter, on chronic anticoagulation with rivaroxaban. She has unstable gait and history of fall and hip fracture as reported by patient. She was referred by Dr. Keith for consideration for left atrial appendage closure. After shared decision-making strategy, patient wanted to proceed with percutaneous left atrial appendage closure. Preprocedure cardiac CT was performed for assessment of the left atrial appendage. Left atrial appendage thrombus was ruled out prior to the procedure. Patient was given IV hydration with normal saline prior to the procedure. Benefits and risks of the procedure were discussed with the patient in depth, and informed consent was taken prior to the procedure. Risks of the procedure include but are not limited to vascular complications like groin hematoma, retroperitoneal bleed, vessel perforation; pericardial effusion or tamponade; cardiac arrhythmias; device embolization, air embolization, device thrombosis or leak, contrast induced nephropathy, . After discussing all the benefits, risks and alternatives, patient was willing to proceed with the procedure. PROCEDURES PERFORMED: Successful implantation of 22 mm Rajan Amplatzer Amulet left atrial appendage occluder (CPT 03192) Intracardiac echocardiogram-3D/4D ICE (CPT 60550) Deployment of 2 closure devices at the right common femoral venous access site (superior and inferior access site) SEDATION: MAC - by anesthesiology team ACCESS SITES: Right common femoral vein PROCEDURE: After obtaining informed consent, patient was brought to the lab coordinator and prepped and draped in the usual sterile manner. Time-out and immediate reassessment of the patient was performed. Patient was placed under monitored anesthesia care by the anesthesiologist team. Two right common femoral venous accesses were taken under ultrasound guidance with micropuncture needle. Preclose suture mediated vascular closure device were placed. Patient received a total of 9000 units of unfractionated heparin for procedural anticoagulation at different intervals during the procedure, to maintain ACT between 250-350 seconds. ACT was monitored throughout the procedure at regular intervals. Long 12 Ecuadorean sheath was advanced over 035 wire from the inferior access site in the right common femoral vein. 3D/4D ICE catheter was advanced in to right atrium. Bethel sheath was advanced over 035 wire from the superior access site in the right common femoral vein. Atrial septal puncture was performed using Bethel transseptal needle under intracardiac echo and fluoroscopic guidance. The sheath was advanced to the left atrium towards the pulmonary vein over the pre shaped wire. The sheath was taken out and it was exchanged with a 12 Ecuadorean amulet delivery sheath. The sheath was advanced into the left atrium, the atrial septum was dilated with the sheath, and then sheath was taken out over the wire and positioned in the right atrium/IVC junction. Next, ICE catheter was advanced into the left atrial cavity. Left atrial appendage measurement was performed. After this, the 12 Ecuadorean sheath was reintroduced over Bethel wire. A 5 Ecuadorean pigtail catheter was advanced over the wire and the pre shaped wire was taken out. Left atrial pressure was measured at 6 mmHg despite aggressive IV fluids with normal saline. A 5 Ecuadorean pigtail catheter was later positioned in the left atrial appendage. Left atrial appendage was visualized after injection of contrast in RIOS caudal projection. The tip of the sheath was advanced close to the left atrial appendage orifice over the pigtail catheter. Next, the delivery sheath of the Amplatzer amulet was thoroughly prepped and flushed with normal saline multiple times to remove any air from the device. Wet to wet connection was performed and the delivery sheath was advanced to the left atrial appendage orifice through the delivery sheath after removal of the pigtail catheter. 22 mm Amulet at device was deployed under 3D and 4D ICE and fluoroscopic guidance. Verification of proper Amulet device deployment was performed with CLOSE signs (Cx lobe at least 2/3 distal, lobe compression, orientation of lobe in line with axis of the TUTU neck, separation between the disc lobe and the disc, elliptical -concave disc). TUG test was performed. Post-implant ICE did not show jonah-device leak or pericardial effusion. After completion of successful procedure, hemostasis was achieved by deployment of Perclose suture mediated vascular closure devices. Patient received 40 mg protamine at the conclusion of the procedure. Patient tolerated procedure well without any immediate procedural complications. Estimated blood loss minimal. All specimens removed. Patient was transferred to the telemetry bed in hemodynamically stable condition. Patient's family was updated about the procedure. CONCLUSIONS: Successful implantation of 22 Amplatzer Amulet left atrial appendage closure device. PLAN/RECOMMENDATIONS: Patient will be admitted to the telemetry unit and will be monitored for any potential postprocedure complications. Follow-up FAN or CT heart in approximately 45 days for device surveillance to assess for any peridevice leak and device related thrombus. Dual antiplatelet therapy with aspirin and clopidogrel for 6 months, then single antiplatelet treatment. Endocarditis prophylaxis for 6 months. Outpatient cardiology follow-up. Voice recognition software was used to complete this document, therefore, wool broker variances may occur. Jian Macdonald MD, [facility] 01/08/25 Jian Macdonald MD CV ELECTROPHYSIOLOGY PROCS Final Result * (ABNORMAL) POC Activated Clotting Time, High Range (01/08/2025 12:07 PM CDT) ACT 302(H) 87 - 138 sec Blood 01/08/2025 12:0 7 PM CDT 01/08/2025 12:07 PM CDT Jian Macdonald MD LAB BLOOD ORDERABLES Final Resul t Performing Organization Address [facility] [[email or web address]] de Phone Number [facility] [phone] [place] [address] * (ABNORMAL) POC Activated Clotting Time, High Range (01/08/2025 12:02 PM CDT) ACT 200(H) 87 - 138 sec Blood 01/08/2025 12:0 2 PM CDT 01/08/2025 12:02 PM CDT Result [facility] Jian Macdonald MD LAB BLOOD ORDERABLES Final Resul t Performing Organization Address [facility] [[email or web address]] de Phone Number [facility] [phone] [address] Department [place] [address] * Check Sample (01/08/2025 8:18 AM CDT) ABO Rh A Negative [facility] OTHER 01/08/2025 8:18 AM CDT 01/08/2025 8:30 AM CDT Jian Macdonald MD LAB BLOOD ORDERABLES Final Resul t Performing Organization Address City/[facility] Co de Phone Number MARK CLARK [phone] [address] [place] [address] CH * Prepare RBC: 2 Units (01/08/2025 7:56 AM CDT) Product code [id number] [facility] CH Unit Number [id number] 0-2 [facility] CH Product Blood Type ANEG [facility] CH Dispense Status RETURNED [facility] CH Product code [id number] Unit Number [id number] 6-O [facility] CH Product Blood Type ANEG [facility] CH Dispense Status RETURNED [facility] CH Blood 01/08/2025 7:56 AM CDT Narrative [facility] - 01/09/2025 12:28 AM CDT Specify Procedure:->LAAO Are special requirements needed? (All products are leukoreduced and CMV- safe)- >No Date required:-[id number] LRRBC # of [id number] Reasons:-Hold for procedure (specify procedure)} Jian Macdonald MD BLOOD BANK PRODUCT ORDERABLES Fi nal Result Performing Organization Address City/[facility] Co de Phone Number MARK CLARK [address] [address] [place] [address] * ECG 12 lead (12/26/2024 12:31 PM CDT) 12/26/2024 12:3 [address] [facility] - 12/26/2024 12:37 PM CDT Vent Rate: 64 bpm RR Interval: 924 msec CO Interval: 152 msec QRS Duration: 96 msec QT Interval: 377 msec QTC Interval: 387 msec P-R-T [place]: 73 - 24 - 46 degrees IMPRESSION: SINUS RHYTHM NORMAL ECG Electronically Signed By: Zeeshan Cunningham MD Jian Macdonald MD ECG ORDERABLES Final Result Performing Organization Address City/[facility] Co de Phone Number [facility] * eGFR (12/26/2024 12:10 PM CDT) eGFR 64 >=60 mL/min/1. 73 m2 Comment: Interpretive Data Reference Interval Normal >/= 90 mL/min/1.73m2 Mildly decreased* 60 - 89 mL/min/1.73m2 Mildly to moderately decreased 45 - 59 mL/min/1.73m2 Moderately to severely decreased 30 - 44 mL/min/1.73m2 Severely decreased 15 - 29 mL/min/1.73m2 Kidney Failure < 15 mL/min/1.73m2 *Relative to young adult level Estimated glomerular filtration rate is determined by the 2020 CKD-EPI equation recommended by the National Kidney Foundation (A Unifying Approach to GFR Estimation: Recommendations of the NKF-ASK Task Force on Reassessing the Inclusion of Race in Diagnosing Kidney Disease, JASN 2020). The CKD-EPI equation should not be used for patients with unstable renal function and has not been validated in children and those over 70. Current interpretive data was last reviewed 2021. Blood 12/26/2024 12:1 0 PM CDT 12/26/2024 12:26 PM CDT Jian Macdonald MD LAB BLOOD ORDERABLES Final Resul t Performing Organization Address City/[facility] Co de Phone Number [facility] [phone] [address] [place] [address] * Differential, auto (12/26/2024 12:10 PM CDT) Neutrophil abs 3.53 1.50 - 6.50 K/cumm Imm gran abs 0.01 0.00 - 0.10 K/cumm [facility] Lymphocyte abs 1.60 0.80 - 3.30 K/cumm [facility] Monocyte abs 0.64 0.20 - 0.80 K/cumm [facility] Eosinophil abs 0.09 0.00 - 0.50 K/cumm [facility] Basophil abs 0.07 0.00 - 0.10 K/cumm [facility] Neutrophil pct 59.4 % [facility] Comment: Interpretive Data Percent cell count reference ranges are not reported, since discordance with absolute values may lead to misinterpretation of CBC data. Current Interpretive Data was last revised on 2017. Imm gran pct 0.2 % [facility] Comment: Interpretive Data Percent cell count reference ranges are not reported, since discordance with absolute values may lead to misinterpretation of CBC data. Current Interpretive Data was last revised on 2017. Lymphocyte pct 26.9 % [facility] Comment: Interpretive Data Percent cell count reference ranges are not reported, since discordance with absolute values may lead to misinterpretation of CBC data. Current Interpretive Data was last revised on 2017. Monocyte pct 10.8 % [facility] Comment: Interpretive Data Percent cell count reference ranges are not reported, since discordance with absolute values may lead to misinterpretation of CBC data. Current Interpretive Data was last revised on 2017. Eosinophil pct 1.5 % [facility] Comment: Interpretive Data Percent cell count reference ranges are not reported, since discordance with absolute values may lead to misinterpretation of CBC data. Current Interpretive Data was last revised on 2017. Basophil pct 1.2 % [facility] Comment: Interpretive Data Percent cell count reference ranges are not reported, since discordance with absolute values may lead to misinterpretation of CBC data. Current Interpretive Data was last revised on 2017. Blood 12/26/2024 12:1 0 PM CDT 12/26/2024 12:26 PM CDT us Jian Macdonald MD LAB BLOOD ORDERABLES Final Resul t MARK CLARK [address] [address] [place] [address] * CBC with auto differential (12/26/2024 12:10 PM CDT) WBC 5.94 3.80 - 9.90 K/cumm Hgb 12.2 11.9 - 15.5 g/dL [facility] Hct 36.4 35.6 - 45.5 % [facility] Plt 228 150 - 400 K/cumm [facility] MPV 10.2 9.1 - 12.3 fL [facility] RBC 3.94 3.90 - 5.20 M/cumm [facility] MCV 92.4 81.3 - 96.4 fL [facility] MCH 31.0 27.1 - 33.3 pg [facility] MCHC 33.5 32.3 - 35.7 g/dL [facility] RDW CV 13.1 11.1 - 14.9 % [facility] CH RDW SD 44.6 35.7 - 48.1 fL [facility] NRBC abs 0.00 0.00 - 0.01 K/cumm [facility] Blood 12/26/2024 12:1 0 PM CDT 12/26/2024 12:26 PM CDT Jian Macdonald MD LAB BLOOD ORDERABLES Final Resul t Performing Organization Address [facility] Co de Phone Number MARK CLARK [address] [address] [place] [address] * aPTT (12/26/2024 12:10 PM CDT) Pathologist [facility] aPTT 38 26 - 38 sec Comment: Interpretive Data Heparin therapeutic range: 66.0 - 100.0 seconds. Range based on correlation with therapeutic heparin activity range of 0.3 - 0.7 Units/mL. Current interpretive data was last revised on 2022. Blood 12/26/2024 12:1 0 PM CDT 12/26/2024 12:26 PM CDT Jian Macdonald MD LAB BLOOD ORDERABLES Final Resul t Performing Organization Address City/[facility]/ZIP Co de Phone Number MARK CLARK [address] [address] Department [employer] [place], [place] [id number] * (ABNORMAL) Protime-INR (12/26/2024 12:10 PM CDT) Pathologist [facility] PT 14.9(H) 10.2 - 13.5 sec INR 1.33(H) 0.90 - 1.20 MARK Comment: Interpretive data Oral anticoagulant therapeutic ranges: Venous thromboembolism prophylaxis or treatment: 2.0-3.0 CARDIOLOGY Standard range: 2.0-3.0 High-intensity range: 2.5-3.5 Refer to indication-specific guidelines for appropriate target ranges for prosthetic heart valve replacement. Current interpretive data was last revised on 2019. Blood 12/26/2024 12:1 0 PM CDT 12/26/2024 12:26 PM CDT Jian Macdonald MD LAB BLOOD ORDERABLES Final Resul t Performing Organization Address City/[facility] Co de Phone Number MARK CLARK [phone] [place] [address] * Type and screen (12/26/2024 12:10 PM CDT) Rosibel, indirect Negative ABO Rh A Negative [facility] Blood 12/26/2024 12:1 0 PM CDT 12/26/2024 12:31 PM CDT Narrative [facility] - 12/26/2024 1:33 PM CDT Has the patient had Daratumumab or Isatuximab in the past 6 months?->Unknown Jian Macdonald MD LAB BLOOD BANK TEST ORDERABLES F inal Result Performing Organization Address [facility] Co de Phone Number MARK CLARK [address] [address] Department [employer] [place] [address] * (ABNORMAL) Comprehensive metabolic panel (12/26/2024 12:10 PM CDT) Sodium 133(L) 135 - 145 mmol/L Potassium, pl 4.1 3.3 - 4.9 mmol/L [facility] Chloride 96(L) 97 - 110 mmol/L [facility] CO2 25 22 - 32 mmol/L [facility] Anion gap 12 2 - 15 mmol/L [facility] BUN 12 6 - 25 mg/dL [facility] Creatinine 0.92 0.60 - 1.10 mg/dL [facility] Glucose 102 70 - 199 mg/dL [facility] Comment: Interpretive Data Fasting glucose >/= 126 mg/dl is diagnostic for diabetes. Fasting is defined as no caloric intake for at least 8 hours. Fasting glucose between 100 mg/dl to 125 mg/dl is diagnostic of prediabetes. In a patient with classic symptoms of hyperglycemia or hyperglycemic crisis, a random glucose >/= 200 mg/dl is diagnostic for diabetes. In the absence of unequivocal hyperglycemia, results should be confirmed by repeat testing. The classification and Diagnosis of Diabetes Diabetes Care 2021; 46: S19-S40. Current interpretive data was last revised 2022. Calcium 9.9 8.5 - 10.3 mg/dL [facility] Bilirubin, total 0.3 0.1 - 1.2 mg/dL [facility] Protein, pl 7.5 6.5 - 8.5 g/dL [facility] Albumin 4.1 3.5 - 5.0 g/dL [facility] Alk phos 102 40 - 130 Units/L [facility] ALT 13 7 - 45 Units/L [facility] AST 24 10 - 45 Units/L [facility] Blood 12/26/2024 12:1 0 PM CDT 12/26/2024 12:26 PM CDT us Jian Macdonald MD LAB BLOOD ORDERABLES Final Resul t [facility] [address] [address] [place] [place] [address] * CT Heart Morphology W Contrast (12/18/2024 [...] signed by: Adolph Fair M.D. us Jian Macdonald MD IMG CT PROCEDURES Final Result * Electrocardiogram Report (12/06/2024 3:11 PM CDT) us Jian Macdonald MD ECG ORDERABLES Final Result from Last 3 Months Insurance MEDICARE [facility] MEDICARE [facility] MEDICARE SUPPLEMENT MEDICARE [facility] MEDICARE SUPPLEMENT Care Teams Process Coach Relationship Specialty Start Date End Date Marry Malin MD PCP - General Family Medicine 04/15/22
[2025-02-01 06:15] VITALS: BMI 26.2
[2025-02-01] MEDS: LACTATED RINGERS 1,000 ML 30 ML IV CONT (06:50)
[2025-02-01] MEDS: ACETAMINOPHEN 500 MG TABLET 1000 MG PO (06:58)
[2025-02-01 07:05] VITALS: BP 124/61; PULSE 72; RESP 18; TEMP 36.1; O2SAT 100
[2025-02-01 07:16] LABS: INR 1.0; Prothrombin Time 13.6 Seconds (11.1-14.7)
[2025-02-01 07:17] LABS: Anion Gap 6 mmol/L (4-12); Blood Urea Nitrogen 15 mg/dL (7-17); Calcium 8.9 mg/dL (8.4-10.2); Carbon Dioxide 28 mmol/L (22-30); Chloride 99 mmol/L (98-107); Estimated CRCL calculation 38 ml/min; Estimated Glomerular Filt Rate 56; Glucose 90 mg/dL (65-110); Partial Thromboplastin Time 27.1 Seconds (22.3-36.8); Potassium 4.0 mmol/L (3.4-5.0); Sodium 133 mmol/L (137-145)
--- NOTE | 2025-02-01 07:27 | WPDHPUPDATE1 ---
History and Physical Update Update Date/Time: 02/01/25 07:27 History and Physical has been reviewed, including an updated exam of the patient. There are NO changes in the patient's condition. Risks, benefits, and alternatives have been discussed and questions answered. Patient agrees to proceed with procedure.
[2025-02-01] MEDS: ceFAZolin 2 GM in SODIUM CHLORIDE 0.9% IV 50 ML 100 ML IVPB (07:32)
[2025-02-01] MEDS: LIDOCAINE 1% LOCAL INJ 10 ML VIAL INFILTRATE (07:41)
--- NOTE | 2025-02-01 07:54 | WPDANESEPPF ---
Anes - Initial Pre Proc Eval Procedure: Operation Date: 02/01/25 07:30 Proposed Procedures p Hysteroscopy, Dilation and Curettage, Removal Any Endometrial Lesions as Needed - Kyle Burdick MD Date/Time: 02/01/25 07:54 Surgeon: Kyle Burdick MD Pre Op Diagnosis: post menopausal bleeding Patient Data Age: 79 Gender: F Height: 1.57 m Weight: 65.2 kg Last Vital Signs Temp 97.0 F L 02/01/25 07:05 Pulse 72 02/01/25 07:05 Resp 18 02/01/25 07:05 BP 124/61 02/01/25 07:05 Pulse Ox 100 02/01/25 07:05 O2 Del Method Room Air 02/01/25 07:05 Allergies Allergy/AdvReac Type Severity Reaction Status Date / Time hydrochlorothiazide (Dyazide) Allergy Unknown Unknown Verified 02/01/25 07:03 aspirin AdvReac Intermediate Abdominal Verified 02/01/25 07:03 Pain codeine AdvReac Intermediate Abdominal Verified 02/01/25 07:03 Pain pregabalin (Lyrica) AdvReac Unknown Anemia Verified 02/01/25 07:03 triamterene AdvReac Unknown Unknown Verified 02/01/25 07:03 Home Medications ?Medication ?Instructions ?Recorded ?Confirmed ?Type pyridoxine (vitamin B6) 100 mg 100 mg PO DAILY 04/11/19 02/01/25 History tablet Centrum Silver Women 1 cap PO DAILY 08/02/20 02/01/25 History polyethylene glycol 3350 17 gram 17 g PO DAILY 08/02/20 01/30/25 History oral powder packet (Miralax) vit C,E,copper,zinc-jsnjq6m 250 1 cap PO DAILY 08/02/20 02/01/25 History mg-lutein 5 mg-zeaxanthin 1 mg capsule (Ocuvite Adult 50 Plus) fluticasone propionate 50 1 spray intranasal DAILY PRN Runny 11/20/21 01/30/25 History mcg/actuation nasal Nose spray,suspension metoprolol succinate 50 mg 50 mg PO DAILY 11/20/21 02/01/25 History tablet,extended release 24 hr inhalational spacing device #1 ea 08/11/22 01/30/25 Rx (Aerochamber MV spacer) albuterol sulfate 90 mcg/actuation 1 inh inhalation BID PRN Shortness 06/19/23 01/30/25 History aerosol inhaler (ProAir HFA) Of Breath Or Wheezing simethicone 80 mg chewable tablet 80 mg PO DAILY PRN abdominal 06/19/23 01/30/25 History discomfort calcium carbonate (Oyster Shell 500 mg PO BID #60 tabs 07/04/23 02/01/25 Rx Calcium 500) acetaminophen 500 mg capsule 500 mg PO Q6H PRN pain 05/16/24 01/30/25 History lysine 500 mg tablet 500 mg PO DAILY 05/16/24 02/01/25 History montelukast 10 mg tablet 10 mg PO DAILY #90 tabs 08/15/24 02/01/25 Rx Breo Ellipta 200 mcg-25 mcg/dose See Rx Instructions .Route 10/23/24 01/30/25 Rx powder for inhalation (fluticasone .COMPLEX #60 ea furoate-vilanterol) cholecalciferol (vitamin D3) 1,250 1,250 mcg PO MONTHLY 11/21/24 02/01/25 History mcg (50,000 unit) capsule alprazolam 0.5 mg tablet 1 mg (2 x 0.5 mg) PO QHS anxiety, 12/01/24 01/30/25 Rx difficulty sleeping #60 tabs clopidogrel 75 mg tablet 75 mg PO DAILY 01/15/25 02/01/25 History amitriptyline 50 mg tablet 50 mg PO QHS #90 tabs 01/18/25 02/01/25 Rx vitamin E 268 mg (400 unit) capsule 268 mg PO .QOd 01/19/25 02/01/25 History Laboratory Tests 02/01/25 06:53 PT 13.6 Seconds (11.1-14.7) INR 1.0 APTT 27.1 Seconds (22.3-36.8) Sodium 133 L mmol/L (137-145) Potassium 4.0 mmol/L (3.4-5.0) Chloride 99 mmol/L (98-107) Carbon Dioxide 28 mmol/L (22-30) Anion Gap 6 mmol/L (4-12) BUN 15 mg/dL (7-17) Creatinine 0.96 mg/dL (0.7-1.0) Estim Creat Clear Calc 38 ml/min Estimated GFR 56 L (59 - ) Glucose 90 mg/dL (65-110) Calcium 8.9 mg/dL (8.4-10.2) Patient hx anesthesia problems: none Family hx anesthesia problems: none Results Review: All pre-operative results and documents have been reviewed as part of the pre-operative evaluation. [facility] Past Medical History Medical History Acute maxillary sinusitis Sacral fracture Pubic ramus fracture Anemia Dysphonia Fracture of left superior pubic ramus Fracture of left inferior pubic ramus CKD (chronic kidney disease) Atrial flutter Closed sacral fracture Fall from ground level Vitamin D2 deficiency Chronic lower back pain Falls frequently Erythema multiforme Positive Romberg test Asthma Acute bacterial bronchitis Acute bacterial sinusitis Chronic laryngitis Hoarseness Contusion of right lower leg Osteopenia ETD (eustachian tube dysfunction) Syncope Atrial flutter with rapid ventricular response echo: normal LV, ef >70%, grade 2 diastolic dysfunction, aneurysmal atrial septum with negative bubble study. FAN/ successful cardioversion now back in flutter. History of peptic ulcer Vitamin D deficiency Elevated troponin Surgical History Surgical History History of lumbar laminectomy History of hand surgery Trigger finger release. Status post transposition of nerve Right ulnar nerve transposition. History of cholecystectomy History of breast biopsy History of carpal tunnel surgery Family History Family History Mother Asthma Family history of cardiovascular disease Family history of kidney disease Family history of malignant neoplasm of cervix, Onset Age: 68 Father Family history of peptic ulcer Family history of malignant neoplasm of stomach Family history of emphysema Sibling Family history of malignant neoplasm of brain, Onset Age: 55 Social History Social History Social History: Surrogate decision maker: Donavon Jean, nephew. Code status: Full code. Caffeine-caf.free soda Smoking status: Never smoker Second hand tobacco smoke exposure: Yes (as child and work place) Alcohol intake: never Substance use: never Substance use type: does not use Current Housing: Decline to Answer Concerned About Future Housing: Decline to Answer Difficulty Paying Gas/Electric Bills: Decline to Answer Difficulty Paying for Meds: Decline to Answer Currently Unemployed: Decline to Answer Education: Decline to Answer Difficulty w/ Childcare or Family Care: Decline to Answer Living arrangements: with family Additional living arrangements comments: The patient lives with her in [place]. He suffers from dementia and she is his primary manager domestic. No children. 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 Gender identity (if verbalized by the patient): Female Spiritual care concerns: No Anes - Eval Final PreProcedure Day of Procedure 02/01/25 07:54 Patient weight: normal Heart: regular rate and rhythm Lungs: clear to auscultation Airway: Mallampati scale class II Neurological: alert and oriented Last oral intake: >/= 8 hours ASA classification: III Emergent: no Anesthetic plan: proceed Anesthesia type and monitoring: general GIVS and standard monitoring Results Review: All pre-operative results and documents have been reviewed as part of the pre-operative evaluation. Informed Consent: The patient's anesthetic plan and its attendant risks and benefits were discussed with the patient/family/POA. Questions were solicited and answers provided to the satisfaction of the patient/family/POA.
--- NOTE | 2025-02-01 08:00 | S_PTH ---
PATIENT: Mely Moody LOC: [facility] U#:[id number] AGE/SX: 79/F ROOM: RE02/01/[address]: Kyle Burdick MD : 1945 BED: DIS: 02/01/2025 SPEC #: [id number] RECD: 02/01/25 09:53 STATUS: SOUGriselda REQ #: [id number] ALYSON: 02/01/25 08:[address]: Kyle Burdick DEPT: [facility] Surgical RECD BY: Patti Aaron ENTERED: 02/01/25 09:53 SP TYPE: Surgical OTHR DR: Marry Malin MD Tissues: A - Endometrial Curettings Procedures: Hematoxylin and Eosin Stain Gross and Microscopic Level 4 P16
--- NOTE | 2025-02-01 08:08 | W.PM.PROC2 ---
Procedure Note - Detailed Date of Procedure 02/01/25 Pre-op Diagnosis post menopausal bleeding Post-op Diagnosis Same Procedure Performed Hysteroscopy with dilation and curettage and removal of small endometrial lesion Surgeon Kyle Burdick MD Anesthesia MAC and Local Indications postmenopausal bleeding abnormal ultrasound finding Findings uterine sound 6.5 cm cavity was mostly atrophic there was a very small calcified appearing area at the fundus on the right it was removed with the Aveta to the cavity was atrophic minimal tissue obtained with curettage Description of Procedure After informed consent was obtained patient was taken to the operating room and adequate IV sedation was administered. Attention was turned to the vagina. Speculum was inserted. Single-tooth tenaculum placed on the anterior lip of the cervix. a cervical block was performed with 1% lidocaine. The uterus was sounded to 6 cm. The cervix was stenotic. Normal duct dilator was used and the cervix was entered os binder was then used and the cervix was dilated to 6 Gramajo dilator. The hysteroscope was inserted using hydrodilation. Findings per above. The Aveta instrument was used to remove the small area at the fundus. The hysteroscope was removed and a curettage was performed miniml tissue obtained. The single-tooth tenaculum was removed hemostasis was noted at the tenaculum site. Sponge count correct. The patient taken to recovery in stable condition. Estimated Blood Loss 5 Drains No Packing No Pathology Yes ( shavings and curettings) Complications No immediate complications Condition Stable Disposition Same day [facility] Billing Surgery - Charge Forward: Surgery Billing
[2025-02-01 08:12] VITALS: BP 112/48; PULSE 71; RESP 14; O2SAT 100
[2025-02-01 08:40] VITALS: BP 168/78; PULSE 69; RESP 20; O2SAT 99
[2025-02-01 09:10] VITALS: BP 160/88; PULSE 70; RESP 20
[2025-02-01 09:25] VITALS: BP 155/80; PULSE 72; RESP 20
== END 2025-02-01 09:34 | disposition home or self-care (01) ==
PROVIDERS: Anesthesiology; PCP Family Medicine; Visit Provider Obstetrics & Gynecology
PROC: 0U5B8ZZ Destruction of Endometrium, Via Natural or Artificial Opening Endoscopic (ICD-10-PCS; CPT 58563; principal; 2025-02-01 07:30)
DX: N95.0 Postmenopausal bleeding (principal)
CPT/HCPCS: 58558; 36415; 80048; 85610; 85730; 88305; 88342; J0690; A9270; J2003; J2405; J2704; J3010; J7120